=== PATIENT | female | born 2000 | race Caucasian/White ===

== ENCOUNTER 2020-08-15 10:22 | Outpatient (CLI) | payer OTHER, SELFPAY ==
--- NOTE | ~2020-08-15 | XR_ITS ---
EXAMINATION:XR_[id number]_CR DATE: 08/15/2020 10:46 INDICATION: Neck pain TECHNIQUE: AP, lateral, and odontoid views of the cervical spine are provided. COMPARISON: None FINDINGS: Alignment is normal. The odontoid is intact. No fracture is identified. Vertebral body heig hts and disk spaces are normal. Prevertebral soft tissues are normal. IMPRESSION: 1. Normal cervical spine radiographs. Reviewed, dictated and finalized at location A. 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
== END 2020-08-15 10:23 | disposition home or self-care (01) ==
LOC: CHSIMG 10:24
PROVIDERS: PCP Nurse Practitioner Family; Visit Provider Nurse Practitioner Family
DX: M54.2 Cervicalgia (principal)
CPT/HCPCS: 72040

== ENCOUNTER 2020-09-10 12:58 | Outpatient (RCR) | payer OTHER, SELFPAY ==
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
--- NOTE | 2020-10-20 09:09 | PCPTNOTE ---
Patient came to therapy for initial evaluation and no showed the next two visits. The patient was called to check in and no calls were returned. Please refer to the evaluation note for patient's discharge status. Thank you, ELZA DiazT
== END 2020-09-10 15:41 | disposition home or self-care (01) ==
LOC: CHSPT 12:58
PROVIDERS: PCP Nurse Practitioner Family; Visit Provider Nurse Practitioner Family
DX: M54.2 Cervicalgia (principal)
CPT/HCPCS: 97014; 97110; 97161; G0283

== ENCOUNTER 2020-09-16 15:32 | Outpatient (CLI) | payer OTHER, SELFPAY ==
[2020-09-16 15:46] LABS: Basophils Absolute Auto 0.03 K/mm3 (0.00-0.10); Basophils Percent Auto 0.3 % (0.0-1.0); Eosinophils Absolute Auto 0.18 K/mm3 (0.02-0.50); Eosinophils Percent Auto 1.9 % (1.0-6.0); Hematocrit 40.9 % (35.0-49.0); Hemoglobin 13.5 g/dL (12.0-15.0); Immature Granulocyte Absolute 0.03 K/mm3 (0.00-0.00); Immature Granulocyte Percent A 0.3 % (0.0-0.0); Lymphocytes Absolute Auto 3.08 K/mm3 (1.10-4.50); Lymphocytes Percent Auto 33.2 % (18.0-42.0); Mean Corpuscular Hemoglobin 27.3 pg (27.0-31.0); Mean Corpuscular Volume 82.6 fL (78.0-102.0); Mean Platelet Volume 9.7 fl (9.2-11.8); Monocytes Absolute Auto 0.62 K/mm3 (0.10-0.90); Monocytes Percent Auto 6.7 % (2.0-11.0); Neutrophils Absolute Auto 5.3 K/mm3 (1.7-7.2); Neutrophils Percent Auto 57.6 % (50.0-70.0); Platelet Count Result 244 K/mm3 (150-420); Red Blood Count 4.95 M/mm3 (4.20-5.40); Red Cell Distribution Width 13.4 % (11.6-14.4); White Blood Count 9.3 K/mm3 (4.8-10.8)
[2020-09-16 16:05] LABS: Hemoglobin A1C < 4.4 % (<5.7)
[2020-09-16 16:37] LABS: Alanine Aminotransferase 31 U/L (14-59); Albumin Level 4.3 g/dL (3.4-5.0); Alkaline Phosphatase 90 U/L (46-116); Anion Gap 9 mmol/L (8-16); Aspartate Amino Transferase 16 U/L (15-37); Bilirubin,Total 0.5 mg/dL (0.00-1.00); Blood Urea Nitrogen 16 mg/dL (7-18); Calcium 9.4 mg/dL (8.5-10.1); Carbon Dioxide 28 mmol/L (21-32); Chloride 103 mmol/L (98-108); Estimated Glomerular Filt Rate > 60; Free T3 3.19 pg/mL (2.18-3.98); Free T4 Free Thyroxine 1.04 ng/dL (0.76-1.46); Glucose 77 mg/dL (70-99); Osmolality Calculated 290 mOsm/kg (285-295); Potassium 4.3 mmol/L (3.5-5.1); Sodium 140 mmol/L (136-145); Thyroid Stimulating Hormone 1.17 uIU/mL (0.36-3.74); Total Protein 7.6 g/dL (6.4-8.2)
[2020-09-18 10:41] LABS: T4 Thyroxine 8.7 mcg/dL (5.1-11.9)
[2020-09-22 08:09] LABS: Total Triiodothyronine (T3) 135 ng/dL (76-181)
== END 2020-09-16 15:33 | disposition home or self-care (01) ==
PROVIDERS: PCP Internal Medicine; Visit Provider Nurse Practitioner Family
DX: E16.2 Hypoglycemia, unspecified (principal); R07.0 Pain in throat
CPT/HCPCS: 36415; 80053; 83036; 84436; 84439; 84443; 84480; 84481; 85025

== ENCOUNTER 2020-12-24 13:27 | Emergency (ER) | payer OTHER, SELFPAY ==
--- NOTE | ~2020-12-24 | XR_ITS ---
EXAMINATION: XR_[id number]_CR INDICATION: Right rib pain TECHNIQUE: A frontal view of the chest and 3 views of the right ribs were obtained. COMPARISON: None. FINDINGS: The lungs are free of acute opacities. There is no pleural effusion or pneumothorax. The ca rdiomediastinal silhouette is normal. No displaced rib fracture is identified. IMPRESSION: 1. No acute cardiopulmonary abnormality or evidence of displaced rib fracture. Reviewed, dictated and finalized at location A.
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
[2020-12-24 13:30] VITALS: BP 143/99; PULSE 90; RESP 14; TEMP 36.6; O2SAT 99
[2020-12-24 14:06] LABS: Pregnancy On Board Control Positive; Urine Pregnancy Test Negative
[2020-12-24] MEDS: KETOROLAC (*BKC) 60 MG/2 ML VIAL IM (14:42)
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
[2020-12-24 15:27] VITALS: BP 136/89; PULSE 88; RESP 16; TEMP 36.6; O2SAT 99
== END 2020-12-24 15:28 | disposition home or self-care (01) ==
PROVIDERS: Emergency Provider Emergency Medicine; PCP Internal Medicine
DX: S10.93XA Contusion of unspecified part of neck, initial encounter (principal); Y04.0XXA Assault by unarmed brawl or fight, initial encounter
CPT/HCPCS: 71101; 72125; 72126; 81025; 96372; 99283; 99284; J1885; Q9967

== ENCOUNTER 2021-03-03 12:19 | Outpatient (CLI) | payer OTHER, SELFPAY ==
[2021-03-03 17:26] LABS: Add Urine Microscopic? NO; Appearance Urine Clear (Clear); Bilirubin Urine Negative (Negative); Blood Urine Negative (Negative); Color Urine Yellow (Yellow); Glucose Urine UA Negative (Negative); Ketones Urine Negative (Negative); Leukocyte Esterase Ur Negative (Negative); Nitrate Urine Negative (Negative); Protein Urine Negative (Negative); Specific Grav Ur 1.025 (1.010-1.020)
[2021-03-03 17:57] LABS: SARS-CoV-2 RNA PCR Negative (Negative)
== END 2021-03-03 12:20 | disposition home or self-care (01) ==
LOC: CHSLAB 12:23
PROVIDERS: PCP Internal Medicine; Visit Provider Nurse Practitioner Family
DX: Z20.822 Contact with and (suspected) exposure to COVID-19 (principal); R30.0 Dysuria
CPT/HCPCS: 81003; 87086; C9803; U0003; U0005

== ENCOUNTER 2021-03-04 15:51 | Emergency (ER) | payer OTHER, SELFPAY ==
--- NOTE | ~2021-03-04 | XR_ITS ---
EXAMINATION: XR chest 1V portable DATE: 03/04/2021 17:02 INDICATION: Chest pain with shortness of breath. TECHNIQUE: A single frontal view of the chest was obtained. COMPARISON: Chest single view 12/24/2020 FINDINGS: The chest demonstrates clear lungs without pneumonia, pleural effusion, or pneumothorax. Th e heart size is normal. IMPRESSION: 1. No acute cardiopulmonary disease. Reviewed, dictated and finalized at location A.
--- NOTE | 2021-03-04 16:05 | ECG_ITS ---
Measurements Intervals [place] Rate: 74 P: 61 [place]: 146 QRS: 51 QRSD: 93 T: 29 QT: 371 QTc: 412 Interpretive Statements SINUS RHYTHM POSSIBLE LEFT ATRIAL ENLARGEMENT INCOMPLETE RIGHT BUNDLE BRANCH BLOCK BASELINE ARTIFACT- II, III, AVF BORDERLINE ECG Electronically Signed On 03-04-2021 19:08:03 CDT by Rodolfo Dukes D.O.
[2021-03-04 16:09] VITALS: BP 133/81; PULSE 71; RESP 20; TEMP 36.8; O2SAT 99
[2021-03-04 16:20] VITALS: PULSE 74
--- NOTE | 2021-03-04 16:35 | ED.GENADULT ---
HPI - General Adult General Chief complaint: Shortness of Breath/Dyspnea Stated complaint: pain in ribs, back pain, back pain, dizzy, SOB Source: patient Mode of arrival: ambulatory Limitations: no limitations History of Present Illness HPI narrative: Cece is a 20F with a PMH of asthma and depression and a family history of early cardiac disease that presented to the ED with chest pain and feeling ill. She was very tired 4 days ago. This progressed to pain in her right lower chest and back. She then developed a pressure in her central chest that radiates to her left arm and is associated with nausea and SOB. She denies any episodes of syncope but does admit to being lightheaded. Related Data Home Medications Medication Instructions Recorded Confirmed escitalopram oxalate 10 mg PO DAILY 03/04/21 03/04/21 Allergies Allergy/AdvReac Type Severity Reaction Status Date / Time No Known Allergies Allergy Mild Unverified 03/04/21 16:14 Review of Systems Constitutional: Constitutional: Reports no additional constitutional complaints Eyes: Eyes: Reports no additional eye complaints ENT: Reports system reviewed and no additional complaints, except as documented Cardiovascular: Cardiovascular: Reports as per HPI Respiratory: Respiratory: Reports as per HPI Gastrointestinal: Gastrointestinal: Reports as per HPI Genitourinary: Genitourinary: Reports no additional female genitourinary complaints Musculoskeletal: Musculoskeletal: Reports no additional musculoskeletal complaints Integumentary/Breasts: Skin/Breast: Reports system reviewed and no additional complaints, except as docu Neurologic: Reports system reviewed and no additional complaints, except as documented Psychiatric: Psychiatric: Reports no additional psychiatric complaints Endocrine: Endocrine: Reports no additional endocrine complaints Hematologic/Lymphatic: Hematologic/Lymphatic: Reports no additional hematologic/lymphatic complaints Allergic/Immunologic: Allergic/Immunologic: Reports no additional allergic/immunologic complaints [facility] Past Medical History Medical History Asthma Depression Surgical History Surgical History H/O dilation and curettage History of appendectomy Family History Family History Mother Hypertension Mother Rheumatoid arthritis Hypertension Heart disease Father Pneumothorax Social History Social History Smoking status: Never smoker Alcohol intake: never Exam Const: General: no acute distress and alert; No confusion Orientation/consciousness: patient oriented x3 Limitations: No altered mental status HENMT: Head: normal to inspection Mouth: Yes Normal oral and palatal mucosa present Eyes: Conjunctivae: conjunctivae normal Pupils: Equal, round and reactive pupils present EOM: EOMs intact bilaterally Neck: Neck: normal visual inspection Chest: Chest palpation & inspection: normal inspection of the chest and abnormal inspection of the chest Resp: Effort & Inspection: normal respiratory effort, not labored, not tachypneic and no use of accessory muscles Auscultation: clear to auscultation bilaterally Cardio: Rate: regular rate Rhythm: regular rhythm Heart sounds: no murmurs GI: Inspection: non-distended GI Palp: Yes Soft to palpation, No Tenderness to palpation present (GI), No Guarding due to palpation present (GI), No Rigid due to palpation and No Rebound tenderness present Auscultation: normal bowel sounds Back/Spine/Pelvis: Back: no CVA tenderness Skin: General skin exam: normal color Neuro: General: patient oriented x3, moves all extremities and CN's II-XI intact bilaterally Extrem: General: normal to inspection Psych: Mental Status: mental status grossly normal
[2021-03-04] MEDS: ASPIRIN 81 MG CHEWABLE TABLET 324 MG PO (16:40)
[2021-03-04] MEDS: NITROGLYCERIN SL 0.4 MG TABLET SUBLINGUAL (16:45)
[2021-03-04] MEDS: ONDANSETRON INJ 4 MG/2 ML VIAL IV PUSH (17:05)
[2021-03-04 17:09] LABS: Basophils Absolute Auto 0.03 K/mm3 (0.00-0.10); Basophils Percent Auto 0.4 % (0.0-1.0); Eosinophils Absolute Auto 0.22 K/mm3 (0.02-0.50); Eosinophils Percent Auto 3.1 % (1.0-6.0); Hematocrit 40.8 % (35.0-49.0); Hemoglobin 13.6 g/dL (12.0-15.0); Immature Granulocyte Absolute 0.04 K/mm3 (0.00-0.00); Immature Granulocyte Percent A 0.6 % (0.0-0.0); Lymphocytes Absolute Auto 2.31 K/mm3 (1.10-4.50); Lymphocytes Percent Auto 32.7 % (18.0-42.0); Mean Corpuscular HGB Conc 33.3 g/dL (32.0-36.0); Mean Corpuscular Hemoglobin 27.2 pg (27.0-31.0); Mean Corpuscular Volume 81.6 fL (78.0-102.0); Mean Platelet Volume 9.9 fl (9.2-11.8); Monocytes Absolute Auto 0.48 K/mm3 (0.10-0.90); Monocytes Percent Auto 6.8 % (2.0-11.0); Neutrophils Percent Auto 56.4 % (50.0-70.0); Platelet Count Result 231 K/mm3 (150-420); Red Cell Distribution Width 13.3 % (11.6-14.4); White Blood Count 7.1 K/mm3 (4.8-10.8)
[2021-03-04 17:12] LABS: Pregnancy On Board Control Positive; Urine Pregnancy Test Negative
[2021-03-04 17:21] LABS: D Dimer 0.26 mg/L (0.19-0.50); Prothrombin Time 10.5 Seconds (9.50-12.10)
[2021-03-04 17:28] LABS: Alanine Aminotransferase 31 U/L (14-59); Albumin Level 4.3 g/dL (3.4-5.0); Alkaline Phosphatase 97 U/L (46-116); Anion Gap 11 mmol/L (8-16); Aspartate Amino Transferase 14 U/L (15-37); Bilirubin,Total 0.3 mg/dL (0.00-1.00); Blood Urea Nitrogen 9 mg/dL (7-18); Calcium 9.5 mg/dL (8.5-10.1); Carbon Dioxide 25 mmol/L (21-32); Chloride 105 mmol/L (98-108); Estimated CRCL calculation 85 ml/min; Estimated Glomerular Filt Rate > 60; Glucose 116 mg/dL (70-99); Lipase 106 U/L (73-393); NT Pro B Type Natriuretic Pept 65 pg/mL (0-125); Osmolality Calculated 291 mOsm/kg (285-295); Potassium 3.8 mmol/L (3.5-5.1); Sodium 141 mmol/L (136-145); Total Protein 7.9 g/dL (6.4-8.2)
[2021-03-04 17:29] LABS: Troponin I < 4.0 ng/L (0.00-60.4)
[2021-03-04 17:53] LABS: Thyroid Stimulating Hormone 1.47 uIU/mL (0.36-3.74)
--- NOTE | 2021-03-04 17:55 | PC.NURSE ---
1645 NITRO #1 GIVEN FOR PAIN / B/P 125/77 PULSE 78 1655 NITRO #2 GIVEN FOR PAIN /10 B/P 127/78 PULSE 77 1705 PAIN 0/10
[2021-03-04 18:09] VITALS: BP 121/71; PULSE 81; RESP 20; TEMP 36.7; O2SAT 99
== END 2021-03-04 18:11 | disposition home or self-care (01) ==
PROVIDERS: Emergency Provider Family Medicine; PCP Internal Medicine
DX: R07.9 Chest pain, unspecified (principal); K21.9 Gastro-esophageal reflux disease without esophagitis; R06.02 Shortness of breath
CPT/HCPCS: 36415; 71045; 80053; 81025; 83690; 83880; 84443; 84484; 85025; 85380; 85610; 93005; 96374; 99283; 99284; A9270; J2405

== ENCOUNTER 2021-03-06 09:06 | Emergency (ER) | payer OTHER, SELFPAY ==
[2021-03-06 09:08] VITALS: BP 118/68; PULSE 89; RESP 20; TEMP 36.6; O2SAT 100
--- NOTE | 2021-03-06 09:27 | ED.HA ---
HPI - Headache General Chief Complaint: Headache Stated Complaint: ABD AND BACK PAIN, HEADACHE Time Seen by Provider: 03/06/21 09:26 Source: patient Mode of arrival: ambulatory Limitations: no limitations History of Present Illness HPI Narrative: Patient is a 20-year-old female complaining of a headache, generalized, accompanied by nausea vomiting that started last night which also resolved before she went to bed last night. She called her primary care physician today and informed about the headache she had last night and was told to go to the emergency room. Patient currently denies any headache, states that she has not had any headache or nausea vomiting this morning, the reason she is here is her primary care physician told her to come. Patient denies any symptoms at this time. Denies any dizziness, speech or visual disturbance, weakness, numbness, unsteady gait, incontinence, fever or chills, chest pain, shortness of breath, abdominal pain or back pain. Patient states that she was at another hospital 2 days ago for abdominal pain, chest pain and back pain, had a complete work-up and was discharged from the emergency room. Related Data Home Medications Medication Instructions Recorded Confirmed escitalopram oxalate 10 mg PO DAILY 03/04/21 03/04/21 Allergies Allergy/AdvReac Type Severity Reaction Status Date / Time No Known Allergies Allergy Mild Unverified 03/04/21 16:14 Review of Systems Review of Systems: All systems reviewed & are unremarkable except as noted in HPI and below Constitutional: Constitutional: Denies body ache(s), Denies chills, Denies excessive sweating, Denies fatigue, Denies fever(s), Denies headache(s), Denies lethargy, Denies malaise, Denies weakness and Denies weight loss Eyes: Eyes: Denies blurry vision, Denies change in vision and Denies loss of vision ENT: Denies dizziness, Denies ear discharge, Denies headache(s), Denies lip swelling, Denies epistaxis, Denies nasal congestion, Denies neck pain, Denies throat swelling and Denies tongue swelling Cardiovascular: Cardiovascular: Denies chest pain, Denies chest pain at rest, Denies chest pain with activity, Denies diaphoresis, Denies rapid heart rate, Denies edema, Denies irregular heart rhythm, Denies lightheadedness, Denies palpitations, Denies dyspnea and Denies dyspnea on exertion Respiratory: Respiratory: Denies chest congestion, Denies cough, Denies hemoptysis, Denies dyspnea and Denies dyspnea on exertion Gastrointestinal: Gastrointestinal: Denies abdominal pain, Denies melena, Denies hematochezia, Denies diarrhea, Denies nausea, Denies vomiting and Denies hematemesis Musculoskeletal: Musculoskeletal: Denies abnormal gait, Denies deformity, Denies joint swelling, Denies limited range of motion, Denies neck pain and Denies numbness Neurologic: Denies Abnormal speech present, Denies abnormal gait, Denies confusion, Denies dizziness, Denies headache(s), Denies focal weakness, Denies loss of vision, Denies numbness, Denies Other visual disturbances, Denies Sensory deficit (Neuro) and Denies weakness Psychiatric: Psychiatric: Denies confusion, Denies depression, Denies auditory hallucinations, Denies homicidal ideation and Denies suicidal ideation Endocrine: Endocrine: Denies cold intolerance, Denies excessive sweating, Denies fatigue, Denies heat intolerance and Denies palpitations Hematologic/Lymphatic: Hematologic/Lymphatic: Denies easy bleeding and Denies easy bruising Allergic/Immunologic: Allergic/Immunologic: Denies lip swelling, Denies throat swelling and Denies tongue swelling PMFSH Past Medical History Medical History Asthma Depression Surgical History Surgical History H/O dilation and curettage History of appendectomy Family History Family History Mother Hypertension
== END 2021-03-06 10:31 | disposition home or self-care (01) ==
PROVIDERS: Emergency Provider Emergency Medicine; PCP Internal Medicine
DX: R51.9 Headache, unspecified (principal); J45.909 Unspecified asthma, uncomplicated; F32.9 Major depressive disorder, single episode, unspecified
CPT/HCPCS: 99281

== ENCOUNTER 2021-03-06 11:19 | Outpatient (CLI) | payer OTHER, SELFPAY ==
[2021-03-06 12:31] LABS: Creatine Kinase 70 U/L (26-192)
[2021-03-06 12:37] LABS: Creatine Kinase MB < 0.50 ng/mL (0.00-5.00); Troponin I < 4.0 ng/L (0.00-60.4)
== END 2021-03-06 11:20 | disposition home or self-care (01) ==
LOC: CHSLAB 11:20
PROVIDERS: PCP Internal Medicine; Visit Provider Nurse Practitioner Family
DX: R07.9 Chest pain, unspecified (principal)
CPT/HCPCS: 36415; 82550; 82553; 84484; 85380

== ENCOUNTER 2021-03-13 09:38 | Outpatient (CLI) | payer OTHER, SELFPAY | END 2021-03-13 09:39 | disposition home or self-care (01) | LOC: CHSCARD 09:40 | PROVIDERS: PCP Internal Medicine; Visit Provider Nurse Practitioner Family | DX: R07.9 Chest pain, unspecified (principal) | CPT/HCPCS: 94060; 94726; 94729 ==

== ENCOUNTER 2021-03-18 08:51 | Outpatient (CLI) | payer OTHER, SELFPAY ==
--- NOTE | ~2021-03-18 | MR_ITS ---
EXAMINATION: MR cervical spine wo con EXAM DATE: 03/18/2021 10:24 INDICATION: Chronic back pain radiating into left arm. Migraine headaches. TECHNIQUE: Multi-sequential, multiplanar MR images of the cervical spine were obtained without contra st. Axial T2, axial T2 MERGE sequence. Sagittal T1, T2, T2 fat saturation images also obtained. Cor relation is made to CT cervical spine 12/24/2020. FINDINGS: The vertebral bodies are aligned in the AP dimension. Vertebral body and disc heights are well-maintained. There are no suspicious marrow signal abnormalities. Paraspinal soft tissue is unrem arkable. The spinal cord signal intensity and intrinsic morphology is normal. Cervicomedullary juncti on is normal in appearance. Level by level evaluation: C2-C3: Disc does not extend beyond the endplate margin. Uncovertebral joint arthropathy: None. Facet joint arthropathy: None. Neural foraminal stenosis: No stenosis. Central canal stenosis: No stenosis. C3-C4: Disc does not extend beyond the endplate margin. Uncovertebral joint arthropathy: None. Facet joint arthropathy: None. Neural foraminal stenosis: No stenosis. Central canal stenosis: No stenosis. C4-C5: Disc does not extend beyond the endplate margin. Uncovertebral joint arthropathy: None. Facet joint arthropathy: None. Neural foraminal stenosis: No stenosis. Central canal stenosis: No stenosis. C5-C6: Disc does not extend beyond the endplate margin. Uncovertebral joint arthropathy: None. Facet joint arthropathy: None. Neural foraminal stenosis: No stenosis. Central canal stenosis: No stenosis. C6-C7: Disc does not extend beyond the endplate margin. Uncovertebral joint arthropathy: None. Facet joint arthropathy: None. Neural foraminal stenosis: No stenosis. Central canal stenosis: No stenosis. C7-T1: Disc does not extend beyond the endplate margin. Uncovertebral joint arthropathy: None. Facet joint arthropathy: Mild left. Neural foraminal stenosis: No stenosis. Central canal stenosis: No stenosis. IMPRESSION: Unremarkable MR cervical spine exam. Reviewed, dictated and finalized at location B.
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
== END 2021-03-18 08:52 | disposition home or self-care (01) ==
LOC: CHSIMG 08:52
PROVIDERS: PCP Internal Medicine; Visit Provider Internal Medicine
DX: G43.919 Migraine, unspecified, intractable, without status migrainosus (principal); M54.2 Cervicalgia; M54.10 Radiculopathy, site unspecified
CPT/HCPCS: 70551; 72141

== ENCOUNTER 2022-02-18 17:31 | Outpatient (CLI) | payer OTHER, MEDICAID, SELFPAY ==
[2022-02-18 18:21] LABS: Hematocrit 41.1 % (35.0-49.0); Hemoglobin 13.3 g/dL (12.0-15.0); Mean Corpuscular HGB Conc 32.4 g/dL (32.0-36.0); Mean Corpuscular Volume 83.5 fL (78.0-102.0); Mean Platelet Volume 10.4 fl (9.2-11.8); Platelet Count Result 246 K/mm3 (150-420); Red Blood Count 4.92 M/mm3 (4.20-5.40); Red Cell Distribution Width 12.8 % (11.6-14.4)
[2022-02-18 18:33] LABS: Appearance Urine Slightly Cloudy (Clear); Bilirubin Urine 1+ (Negative); Blood Urine 3+ (Negative); Glucose Urine UA Trace (Negative); Ketones Urine Trace (Negative); Leukocyte Esterase Ur Negative LEU/UL (Negative); Nitrate Urine Negative (Negative); Protein Urine 3+ (Negative); Specific Grav Ur >= 1.030 (1.010-1.020)
[2022-02-18 18:38] LABS: SPREG INTERNAL CONTROL Positive; Serum Qual hCG Negative
[2022-02-18 18:44] LABS: Add Urine Microscopic? YES; Bacteria Urine 1+ /hpf; Color Urine Dark Red (Yellow); RBC Urine >75 /hpf (0-2); Squamous Epithelial Cell Urine Few /hpf (Few); WBC Urine 0-3 /hpf (0-3)
[2022-02-18 18:45] LABS: Mucus Urine Rare /lpf
[2022-02-18 18:51] LABS: Alanine Aminotransferase 33 U/L (14-59); Albumin Level 4.5 g/dL (3.4-5.0); Alkaline Phosphatase 91 U/L (46-116); Amylase 48 U/L (25-115); Anion Gap 12 mmol/L (8-16); Aspartate Amino Transferase 15 U/L (15-37); Bilirubin,Total 0.3 mg/dL (0.00-1.00); Blood Urea Nitrogen 14 mg/dL (7-18); CRP 0.5 mg/dL (0.0-0.9); Calcium 9.2 mg/dL (8.5-10.1); Carbon Dioxide 24 mmol/L (21-32); Chloride 104 mmol/L (98-108); Estimated Glomerular Filt Rate > 60; Free T4 Free Thyroxine 0.94 ng/dL (0.76-1.46); Glucose 115 mg/dL (70-99); Lipase 124 U/L (73-393); Osmolality Calculated 291 mOsm/kg (285-295); Potassium 3.3 mmol/L (3.5-5.1); Sodium 140 mmol/L (136-145); Thyroid Stimulating Hormone 0.67 uIU/mL (0.36-3.74); Total Protein 7.9 g/dL (6.4-8.2)
== END 2022-02-18 17:32 | disposition home or self-care (01) ==
PROVIDERS: PCP Internal Medicine; Visit Provider Nurse Practitioner Family
DX: R51.9 Headache, unspecified (principal); N93.8 Other specified abnormal uterine and vaginal bleeding; R10.9 Unspecified abdominal pain; R63.4 Abnormal weight loss
CPT/HCPCS: 36415; 80053; 81001; 82150; 83690; 84439; 84443; 84703; 85027; 86140

== ENCOUNTER 2022-02-22 08:25 | Outpatient (CLI) | payer OTHER, MEDICAID, SELFPAY ==
--- NOTE | ~2022-02-22 | US_ITS ---
EXAMINATION: US pelvic complete w TV DATE: 02/22/2022 09:11 INDICATION: Dysfunctional uterine bleeding TECHNIQUE: Multiple transabdominal and endovaginal sonographic images of the pelvis were obtained. COMPARISON: 09/24/2016 FINDINGS: The uterus measures 7.3 x 3.4 x 4.5 cm. The endometrial complex measures 4 mm. The right ov luigi measures 2.8 x 3.2 x 2.1 cm. The left ovary measures 2.7 x 1.8 x 2.3 cm. There is normal vascular flow in the ovaries. There is no free fluid in the pelvis. IMPRESSION: 1. No sonographic correlate for the patient's symptoms. Reviewed, dictated and finalized at location B.
== END 2022-02-22 08:26 | disposition home or self-care (01) ==
LOC: CHSIMG 08:27
PROVIDERS: PCP Internal Medicine; Visit Provider Nurse Practitioner Family
DX: R51.9 Headache, unspecified (principal); N93.8 Other specified abnormal uterine and vaginal bleeding; R10.9 Unspecified abdominal pain; R63.4 Abnormal weight loss
CPT/HCPCS: 76830; 76856

== ENCOUNTER 2022-02-24 16:54 | Outpatient (CLI) | payer OTHER, MEDICAID, SELFPAY ==
--- NOTE | ~2022-02-24 | CT_ITS ---
EXAMINATION: CT abdomen pelvis wo con DATE: 02/24/2022 17:24 INDICATION: Hematuria w/ RT sided flank pain and n/v x 1 mo TECHNIQUE: Computed tomography (CT) of the abdomen and pelvis was performed without intravenous contr ast. Automated exposure control and iterative reconstruction technique were employed. The dose-length product was 214.78 mGy-cm. COMPARISON: Ultrasound pelvis 02/22/2022. X-ray abdomen 10/19/2018. FINDINGS: Lower thorax: Unremarkable Liver: Normal. Biliary/Gallbladder: No bile duct dilation. Pancreas: No mass or duct dilation. Spleen: Normal. Adrenals:No mass. Kidneys: No mass, stone, or hydronephrosis. GI tract: No small or large bowel dilation. Surgically absent appendix. Mesentery/Peritoneum: No ascites, mass, or free air. Retroperitoneum: No mass. Pelvis: Bladder is poorly distended. Distal ureters are difficult to trace in the entirety. 3 mm calc ification in the right deep pelvis may represent a phlebolith or, less likely a distal ureteral stone . Soft Tissues: Soft tissues and body wall unremarkable. Bones: No acute osseous finding. IMPRESSION: No acute abdominopelvic process detected. Distal ureters are difficult to trace, but there is no neph rolithiasis, perinephric stranding, or hydronephrosis. 3 mm right pelvic calcification is likely repr esents a phlebolith but a distal ureteral stone remains possible. CT urography would be necessary for confirmation. Reviewed, dictated and finalized at location K. IMPRESSION: No acute abdominopelvic process detected. Distal ureters are difficult to trace , but there is no nephrolithiasis, perinephric stranding, or hydronephrosis. 3 mm right pelvic calcification is likely represents a phlebolith but a distal ur eteral stone remains possible. CT urography would be necessary for confirmation .
[2022-02-24 17:33] LABS: Basophils Absolute Auto 0.02 K/mm3 (0.00-0.10); Basophils Percent Auto 0.2 % (0.0-1.0); Eosinophils Absolute Auto 0.16 K/mm3 (0.02-0.50); Hematocrit 38.7 % (35.0-49.0); Hemoglobin 12.6 g/dL (12.0-15.0); Immature Granulocyte Absolute 0.02 K/mm3 (0.00-0.00); Immature Granulocyte Percent A 0.2 % (0.0-0.0); Lymphocytes Percent Auto 28.6 % (18.0-42.0); Mean Corpuscular HGB Conc 32.6 g/dL (32.0-36.0); Mean Corpuscular Hemoglobin 27.2 pg (27.0-31.0); Mean Corpuscular Volume 83.6 fL (78.0-102.0); Mean Platelet Volume 10.3 fl (9.2-11.8); Monocytes Absolute Auto 0.52 K/mm3 (0.10-0.90); Monocytes Percent Auto 6.5 % (2.0-11.0); Neutrophils Percent Auto 62.5 % (50.0-70.0); Platelet Count Result 235 K/mm3 (150-420); Red Blood Count 4.63 M/mm3 (4.20-5.40); Red Cell Distribution Width 12.6 % (11.6-14.4)
[2022-02-24 17:38] LABS: Anion Gap 6 mmol/L (8-16); Blood Urea Nitrogen 7 mg/dL (7-18); CRP 1.1 mg/dL (0.0-0.9); Calcium 9.2 mg/dL (8.5-10.1); Carbon Dioxide 24 mmol/L (21-32); Chloride 104 mmol/L (98-108); Estimated Glomerular Filt Rate > 60; Glucose 88 mg/dL (70-99); Osmolality Calculated 275 mOsm/kg (285-295); Potassium 3.6 mmol/L (3.5-5.1); Sodium 134 mmol/L (136-145)
[2022-02-24 17:41] LABS: Add Urine Microscopic? YES; Appearance Urine Cloudy (Clear); Bilirubin Urine Negative (Negative); Blood Urine 3+ (Negative); Color Urine Yellow (Yellow); Glucose Urine UA Negative (Negative); Ketones Urine Negative (Negative); Leukocyte Esterase Ur Negative (Negative); Nitrate Urine Negative (Negative); Protein Urine Trace (Negative)
[2022-02-24 17:43] LABS: Bacteria Urine 1+ /hpf; RBC Urine >75 /hpf (0-2); Squamous Epithelial Cell Urine Few /hpf (Few); WBC Urine None seen /hpf (0-3)
[2022-02-24 18:46] LABS: Erythrocyte Sedimentation Rate 16 mm/hr (0-15)
[2022-02-26 20:55] LABS: Albumin 4.7 g/dL (3.8-4.8); Alpha 1 Globulin 0.4 g/dL (0.2-0.3); Alpha 2 Globulin 0.7 g/dL (0.5-0.9); Beta 1 Globulin 0.4 g/dL (0.4-0.6); Protein, Total 7.5 g/dL (6.1-8.1)
== END 2022-02-24 16:55 | disposition home or self-care (01) ==
LOC: CHSLAB 16:57
PROVIDERS: PCP Internal Medicine; Visit Provider Internal Medicine
DX: R31.9 Hematuria, unspecified (principal); N18.2 Chronic kidney disease, stage 2 (mild); R50.9 Fever, unspecified
CPT/HCPCS: 36415; 74176; 80048; 81001; 84155; 84165; 85025; 85652; 86038; 86140; 87086

== ENCOUNTER 2022-05-07 16:38 | Emergency (ER) | payer BC, SELFPAY ==
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
[2022-05-07 16:58] VITALS: BP 120/94; PULSE 72; RESP 18; TEMP 36.5; O2SAT 97
[2022-05-07 17:42] LABS: Bilirubin Urine Negative (Negative); Blood Urine 3+ (Negative); Glucose Urine UA Negative (Negative); Ketones Urine Negative (Negative); Leukocyte Esterase Ur Trace LEU/UL (Negative); Nitrate Urine Negative (Negative); Protein Urine Negative (Negative); Urobilinogen Urine 0.2 mg/dL (0.2-1.0)
[2022-05-07 17:45] LABS: Basophils Absolute Auto 0.03 K/mm3 (0.00-0.10); Basophils Percent Auto 0.4 % (0.0-1.0); Eosinophils Absolute Auto 0.14 K/mm3 (0.02-0.50); Eosinophils Percent Auto 1.7 % (1.0-6.0); Hematocrit 38.9 % (35.0-49.0); Immature Granulocyte Absolute 0.03 K/mm3 (0.00-0.00); Immature Granulocyte Percent A 0.4 % (0.0-0.0); Lymphocytes Absolute Auto 2.57 K/mm3 (1.10-4.50); Lymphocytes Percent Auto 31.8 % (18.0-42.0); Mean Corpuscular HGB Conc 33.4 g/dL (32.0-36.0); Mean Corpuscular Hemoglobin 27.9 pg (27.0-31.0); Mean Corpuscular Volume 83.5 fL (78.0-102.0); Mean Platelet Volume 9.9 fl (9.2-11.8); Monocytes Absolute Auto 0.46 K/mm3 (0.10-0.90); Monocytes Percent Auto 5.7 % (2.0-11.0); Neutrophils Absolute Auto 4.8 K/mm3 (1.7-7.2); Platelet Count Result 249 K/mm3 (150-420); Red Blood Count 4.66 M/mm3 (4.20-5.40); Red Cell Distribution Width 13.3 % (11.6-14.4); White Blood Count 8.1 K/mm3 (4.8-10.8)
[2022-05-07 17:52] LABS: Add Urine Microscopic? YES; Appearance Urine Cloudy (Clear); Bacteria Urine Trace /hpf; Color Urine Light Red (Yellow); RBC Urine >75 /hpf (0-2); Squamous Epithelial Cell Urine Rare /hpf (Few); WBC Urine 0-3 /hpf (0-3)
[2022-05-07 17:59] LABS: Partial Thromboplastin Time 31.3 SEC (23.90-30.70); Prothrombin Time 10.9 Seconds (9.50-12.10)
[2022-05-07 18:06] LABS: Anion Gap 8 mmol/L (8-16); Blood Urea Nitrogen 16 mg/dL (7-18); Calcium 9.5 mg/dL (8.5-10.1); Carbon Dioxide 27 mmol/L (21-32); Chloride 106 mmol/L (98-108); Estimated Glomerular Filt Rate > 60; Glucose 102 mg/dL (70-99); Osmolality Calculated 293 mOsm/kg (285-295); Potassium 3.8 mmol/L (3.5-5.1); Sodium 141 mmol/L (136-145)
[2022-05-07 18:07] LABS: Beta HCG Quantitative < 1.00 mIU/mL (0-6)
== END 2022-05-07 18:44 | disposition left against medical advice (07) ==
PROVIDERS: Emergency Provider Emergency Medicine; PCP Internal Medicine
DX: N92.1 Excessive and frequent menstruation with irregular cycle (principal); N93.9 Abnormal uterine and vaginal bleeding, unspecified
CPT/HCPCS: 36415; 80048; 81001; 84702; 85025; 85610; 85730; 99283

== ENCOUNTER 2022-06-30 16:23 | Outpatient (CLI) | payer BC, SELFPAY ==
[2022-06-30 17:07] LABS: Strep Group A RT-PCR NOT DETECTED (Negative)
[2022-06-30 17:10] LABS: Influenza A QL RT-PCR Negative (Negative); Influenza B QL RT-PCR Negative (Negative); SARS-CoV-2 RNA PCR Negative (Negative)
== END 2022-06-30 16:24 | disposition home or self-care (01) ==
PROVIDERS: PCP Family Medicine; Visit Provider Family Medicine
DX: J06.9 Acute upper respiratory infection, unspecified (principal); Z20.822 Contact with and (suspected) exposure to COVID-19
CPT/HCPCS: 87636; 87651

== ENCOUNTER 2022-10-26 17:53 | Outpatient (CLI) | payer BC, SELFPAY ==
[2022-10-26 18:12] LABS: Basophils Absolute Auto 0.03 K/mm3 (0.00-0.10); Basophils Percent Auto 0.4 % (0.0-1.0); Eosinophils Absolute Auto 0.15 K/mm3 (0.02-0.50); Eosinophils Percent Auto 1.9 % (1.0-6.0); Hematocrit 40.3 % (35.0-49.0); Immature Granulocyte Absolute 0.02 K/mm3 (0.00-0.00); Immature Granulocyte Percent A 0.3 % (0.0-0.0); Lymphocytes Absolute Auto 2.71 K/mm3 (1.10-4.50); Lymphocytes Percent Auto 34.6 % (18.0-42.0); Mean Corpuscular HGB Conc 32.3 g/dL (32.0-36.0); Mean Corpuscular Hemoglobin 26.6 pg (27.0-31.0); Mean Corpuscular Volume 82.6 fL (78.0-102.0); Mean Platelet Volume 9.5 fl (9.2-11.8); Monocytes Absolute Auto 0.62 K/mm3 (0.10-0.90); Monocytes Percent Auto 7.9 % (2.0-11.0); Neutrophils Absolute Auto 4.3 K/mm3 (1.7-7.2); Neutrophils Percent Auto 54.9 % (50.0-70.0); Platelet Count Result 269 K/mm3 (150-420); Red Blood Count 4.88 M/mm3 (4.20-5.40); Red Cell Distribution Width 13.3 % (11.6-14.4); White Blood Count 7.8 K/mm3 (4.8-10.8)
[2022-10-26 18:46] LABS: Alanine Aminotransferase 36 U/L (14-59); Albumin Level 4.3 g/dL (3.4-5.0); Alkaline Phosphatase 86 U/L (46-116); Anion Gap 7 mmol/L (8-16); Aspartate Amino Transferase 21 U/L (15-37); Bilirubin,Total 0.5 mg/dL (0.00-1.00); Blood Urea Nitrogen 11 mg/dL (7-18); Calcium 9.4 mg/dL (8.5-10.1); Carbon Dioxide 28 mmol/L (21-32); Chloride 107 mmol/L (98-108); Estimated Glomerular Filt Rate > 60; Glucose 76 mg/dL (70-99); Osmolality Calculated 292 mOsm/kg (285-295); Sodium 142 mmol/L (136-145); Total Protein 7.5 g/dL (6.4-8.2)
[2022-10-26 18:57] LABS: HIV 1 P24 AG Negative (Negative); HIV 1/2 AB Negative (Negative)
[2022-10-30 16:31] LABS: RPR Screen Non-Reactive (Non-Reactive)
[2022-11-02 02:52] LABS: Hepatitis A Antibody IgM Nonreactive; Hepatitis B Core Antibody Nonreactive (Nonreactive); Hepatitis B Surface Antigen Nonreactive (Nonreactive); Hepatitis C Signal to Cutoff 0.01 ratio (<1.00); Hepatitis C Virus Antibody Nonreactive (Nonreactive)
== END 2022-10-26 17:54 | disposition home or self-care (01) ==
LOC: CHSLAB 17:55
PROVIDERS: PCP Internal Medicine; Visit Provider Emergency Medicine
DX: Z72.51 High risk heterosexual behavior (principal); Z20.2 Contact with and (suspected) exposure to infections with a predominantly sexual mode of transmission
CPT/HCPCS: 36415; 80053; 80074; 85025; 86592; 86703

== ENCOUNTER 2023-01-14 10:29 | Emergency (ER) | payer BC, SELFPAY ==
--- NOTE | 2023-01-14 10:33 | ED.URI ---
HPI - URI/Sore Throat General Chief Complaint: Upper Respiratory Infection Stated Complaint: SOB/SORE THROAT/HEADACHE/FEVER/TIRED/COUGH Time Seen by Provider: 01/14/23 10:33 Source: patient Mode of arrival: ambulatory Limitations: no limitations History of Present Illness HPI Narrative: Patient is a 22-year-old female who presents with 3 days of fever, sore throat, ear pain, dry cough, fatigue, headache, body aches, nausea, vomiting. Patient states upper respiratory viruses along with COVID are going around her job along with her children currently having strep. Reports children are on day 5 of antibiotics. Patient has taken DayQuil and Tylenol with little to no relief. Denies any nausea vomiting today but did vomit last night. States she has history of bronchitis and pneumonia. Denies any diarrhea. Patient tested herself at home yesterday and was negative for COVID. Related Data Allergies Allergy/AdvReac Type Severity Reaction Status Date / Time Sulfa (Sulfonamide Allergy Unknown Verified 01/14/23 10:44 Antibiotics) Review of Systems Review of Systems: All systems reviewed & are unremarkable except as noted in HPI and below Constitutional: Constitutional: Reports body ache(s), Reports chills, Reports fatigue, Reports fever(s), Reports headache(s), Reports malaise and Denies weakness Eyes: Eyes: Denies blurry vision, Denies itchy eyes and Denies loss of vision ENT: Reports otalgia, Reports headache(s), Reports nasal congestion, Denies sinus pain and Reports sore throat Cardiovascular: Cardiovascular: Denies chest pain, Denies irregular heart rhythm and Denies dyspnea Respiratory: Respiratory: Reports cough and Denies dyspnea Gastrointestinal: Gastrointestinal: Denies abdominal pain, Denies diarrhea, Reports nausea and Reports vomiting Musculoskeletal: Musculoskeletal: Denies back pain, Denies myalgias and Denies arthralgias Integumentary/Breasts: Skin/Breast: Denies pruritus and Denies rash Neurologic: Denies headache(s), Denies loss of vision and Denies weakness Psychiatric: Psychiatric: Reports no additional psychiatric complaints Endocrine: Endocrine: Denies fatigue Allergic/Immunologic: Allergic/Immunologic: Denies itchy eyes PMFSH Past Medical History Medical History Asthma Depression Surgical History Surgical History H/O dilation and curettage History of appendectomy Family History Family History Mother Hypertension Mother Rheumatoid arthritis Hypertension Heart disease Father Pneumothorax Social History Social History Smoking status: Never smoker Alcohol intake: never Comments At time of signature, agree with nursing past medical, surgical, social and family history. There is no relevant family history pertinent to the presenting complaint. Exam Const: General: cooperative, healthy appearing, comfortable, no acute distress and well nourished Nutritional Appearance: well nourished Orientation/consciousness: patient oriented x3 Limitations: no limitations HENMT: Head: normal to inspection, normocephalic and atraumatic Ears: hearing grossly normal bilaterally, external ears normal, TM's normal bilaterally, EAC's normal and no periauricular adenopathy Face/Nose/Sinus: Normal external nose present, Normal nasal mucous membranes and turbinates present, normal facial exam, sinuses nontender and face symmetric Face and sinus: normal facial exam, sinuses nontender and face symmetric Mouth: Yes Normal oral and palatal mucosa present, Yes lip normal, Yes tongue normal, Yes Normal salivary glands and ducts present, Yes oropharynx normal and Yes moist mucous membranes Teeth and gingiva: dentition normal Throat: posterior oropharynx normal, tonsils normal, uvula midline and heeler
[2023-01-14 10:43] VITALS: BP 121/87; PULSE 81; RESP 16; TEMP 36.6; O2SAT 100
[2023-01-14 10:45] VITALS: BP 121/87; PULSE 81; RESP 16; TEMP 36.6; O2SAT 100
== END 2023-01-14 11:00 | disposition home or self-care (01) ==
PROVIDERS: Emergency Provider Nurse Practitioner Family; PCP Internal Medicine
DX: J06.9 Acute upper respiratory infection, unspecified (principal); J45.909 Unspecified asthma, uncomplicated
CPT/HCPCS: 87081; 87804; 87880; 99213; G0463

== ENCOUNTER 2023-03-22 11:56 | Emergency (ER) | payer OTHER, BC, SELFPAY ==
--- NOTE | ~2023-03-22 | XR_ITS ---
Right wrist Technique: PA, oblique, lateral, and ulnar deviation views were obtained. Clinical History: Pain Findings: No acute fracture or dislocation is seen. Osseous alignment is anatomic. Joint spaces are p reserved. Soft tissues are unremarkable. Impression: Unremarkable right wrist radiographs. Reviewed, dictated and finalized at location . Impression: Unremarkable right wrist radiographs.
--- NOTE | ~2023-03-22 | XR_ITS ---
Right Hand Technique: PA, oblique, and lateral views were obtained. Clinical History: Pain Findings: No acute fracture or dislocation is seen. Osseous alignment is anatomic. Joint spaces are p reserved. Soft tissues are unremarkable. Impression: Unremarkable right hand. Reviewed, dictated and finalized at location M. Impression: Unremarkable right hand.
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
[2023-03-22 12:09] VITALS: BP 113/80; PULSE 66; RESP 16; TEMP 36.6; O2SAT 100
[2023-03-22 12:12] VITALS: BP 113/80; PULSE 66; RESP 16; TEMP 36.6; O2SAT 100
== END 2023-03-22 12:34 | disposition home or self-care (01) ==
PROVIDERS: Emergency Provider Nurse Practitioner Family; PCP Internal Medicine
DX: S63.91XA Sprain of unspecified part of right wrist and hand, initial encounter (principal); S63.501A Unspecified sprain of right wrist, initial encounter; X58.XXXA Exposure to other specified factors, initial encounter; Y99.0 Civilian activity done for income or pay; J45.909 Unspecified asthma, uncomplicated
CPT/HCPCS: 73110; 73130; 99213; G0463

== ENCOUNTER 2023-04-19 13:00 | Emergency (ER) | payer BC, SELFPAY ==
--- NOTE | 2023-04-19 13:07 | ED.URI ---
HPI - URI/Sore Throat General Chief Complaint: Upper Respiratory Infection Stated Complaint: Bilateral Ear Irritation,Body Aches,Sore Throat Time Seen by Provider: 04/19/23 13:07 Source: patient, RN notes reviewed and old records reviewed Mode of arrival: ambulatory Limitations: no limitations History of Present Illness HPI Narrative: 22-year-old female presents to the [facility] with body aches, sore throat, bilateral ear pain that started Tuesday, 2 days ago. Patient reports where she works that she has been exposed to COVID Patient reports that her child is positive for strep and influenza A. Onset (ago): day(s) (2) Treatments prior to arrival: ibuprofen and cold medicine (One dose) Related Data Home Medications Medication Instructions Recorded Confirmed No Home Medications 04/19/23 04/19/23 Allergies Allergy/AdvReac Type Severity Reaction Status Date / Time Sulfa (Sulfonamide Allergy Unknown Verified 04/19/23 13:09 Antibiotics) Review of Systems Review of Systems: All systems reviewed & are unremarkable except as noted in HPI and below Constitutional: Constitutional: Reports as per HPI Eyes: Eyes: Reports no additional eye complaints ENT: Reports as per HPI Cardiovascular: Cardiovascular: Reports no additional cardiovascular complaints, Denies chest pain and Denies dyspnea Respiratory: Respiratory: Reports no additional respiratory complaints, Denies chest congestion, Denies cough and Denies dyspnea Gastrointestinal: Gastrointestinal: Reports no additional gastrointestinal complaints, Denies abdominal pain, Denies nausea and Denies vomiting Musculoskeletal: Musculoskeletal: Reports no additional musculoskeletal complaints Integumentary/Breasts: Skin/Breast: Reports system reviewed and no additional complaints, except as docu Neurologic: Reports system reviewed and no additional complaints, except as documented Psychiatric: Psychiatric: Reports no additional psychiatric complaints Allergic/Immunologic: Allergic/Immunologic: Reports no additional allergic/immunologic complaints [facility] Past Medical History Medical History Asthma Depression Surgical History Surgical History H/O dilation and curettage History of appendectomy Family History Family History Mother Hypertension Mother Rheumatoid arthritis Hypertension Heart disease Father Pneumothorax Social History Social History Smoking status: Never smoker Alcohol intake: never Comments At the time of my signature, I reviewed and agree with the nursing past medical, surgical, social, and family history. There is no relevant family history pertinent to the patient complaint. Exam Const: General: cooperative, healthy appearing, comfortable, no acute distress, well developed, alert and well nourished Nutritional Appearance: well nourished Orientation/consciousness: patient oriented x3 Limitations: no limitations HENMT: Head: normal to inspection Ears: hearing grossly normal bilaterally, external ears normal, TM's normal bilaterally, EAC's normal and mastoids normal Face/Nose/Sinus: Normal external nose present, Normal nares present, Normal nasal mucous membranes and turbinates present, normal facial exam and face symmetric Face and sinus: normal facial exam and face symmetric Mouth: Yes Normal oral and palatal mucosa present, Yes lip normal and Yes moist mucous membranes Throat: posterior oropharynx normal, uvula midline and postnasal drainage Eyes: General: appearance normal, both eyes and all related structures Alignment and Position: alignment normal Periorbital: periorbital findings normal Pupils: Equal, round and reactive pupils present EOM: EOMs intact bilaterally Neck: Neck: normal visual inspection
[2023-04-19 13:08] VITALS: BP 122/71; PULSE 78; RESP 16; TEMP 36.4; O2SAT 100
== END 2023-04-19 13:38 | disposition home or self-care (01) ==
PROVIDERS: Emergency Provider Nurse Practitioner; PCP Internal Medicine
DX: J06.9 Acute upper respiratory infection, unspecified (principal); Z20.822 Contact with and (suspected) exposure to COVID-19
CPT/HCPCS: 87081; 87426; 87804; 87880; 99213; C9803; G0463

== ENCOUNTER 2023-09-13 13:45 | Outpatient (CLI) | payer BC, SELFPAY ==
[2023-09-13 14:10] LABS: Basophils Absolute Auto 0.04 K/mm3 (0.00-0.10); Basophils Percent Auto 0.4 % (0.0-1.0); Eosinophils Absolute Auto 0.33 K/mm3 (0.02-0.50); Eosinophils Percent Auto 3.7 % (1.0-6.0); Hematocrit 38.9 % (35.0-49.0); Hemoglobin 12.9 g/dL (12.0-15.0); Immature Granulocyte Absolute 0.03 K/mm3 (0.00-0.00); Immature Granulocyte Percent A 0.3 % (0.0-0.0); Lymphocytes Absolute Auto 2.55 K/mm3 (1.10-4.50); Lymphocytes Percent Auto 28.7 % (18.0-42.0); Mean Corpuscular HGB Conc 33.2 g/dL (32-36); Mean Corpuscular Hemoglobin 27.7 pg (27.0-31.0); Mean Corpuscular Volume 83.5 fL (78.0-102.0); Monocytes Absolute Auto 0.56 K/mm3 (0.10-0.90); Monocytes Percent Auto 6.3 % (2.0-11.0); Neutrophils Absolute Auto 5.39 K/mm3 (1.70-7.20); Neutrophils Percent Auto 60.6 % (50.0-70.0); Platelet Count Result 241 K/mm3 (150-420); Red Blood Count 4.66 M/mm3 (4.20-5.40); Red Cell Distribution Width 13.1 % (11.6-14.4); White Blood Count 8.9 K/mm3 (4.8-10.8)
[2023-09-13 15:11] LABS: Alanine Aminotransferase 26 U/L (14-59); Alkaline Phosphatase 83 U/L (46-116); Anion Gap 11 mmol/L (8-16); Aspartate Amino Transferase 11 U/L (15-37); Bilirubin,Total 0.3 mg/dL (0.00-1.00); Blood Urea Nitrogen 13 mg/dL (7-18); Carbon Dioxide 28 mmol/L (21-32); Chloride 102 mmol/L (98-108); Estimated Glomerular Filt Rate > 60; Glucose 109 mg/dL (70-99); Osmolality Calculated 293 mOsm/kg (285-295); Potassium 3.8 mmol/L (3.5-5.1); Sodium 141 mmol/L (136-145); Total Protein 7.3 g/dL (6.4-8.2); Vitamin B12 694 pg/mL (193-986)
[2023-09-13 16:07] LABS: Thyroid Stimulating Hormone Reflex 1.23 u/IU/mL (0.36-3.74)
[2023-09-19 18:56] LABS: Vitamin D 25 Hydroxy 35 ng/mL (30-100)
== END 2023-09-13 13:46 | disposition home or self-care (01) ==
LOC: CHSLAB 13:48
PROVIDERS: PCP Family Medicine; Visit Provider Family Medicine
DX: E53.8 Deficiency of other specified B group vitamins (principal); E03.9 Hypothyroidism, unspecified; E16.2 Hypoglycemia, unspecified; Z79.899 Other long term (current) drug therapy
CPT/HCPCS: 36415; 80053; 82306; 82607; 82746; 83525; 84443; 85025

== ENCOUNTER 2023-09-14 14:13 | Outpatient (CLI) | payer BC, SELFPAY ==
--- NOTE | ~2023-09-14 | US_ITS ---
EXAMINATION: US thyroid DATE: 09/14/2023 14:34 INDICATION: Nontoxic single thyroid nodule. TECHNIQUE: Multiple ultrasound images of the thyroid were obtained. COMPARISON: None. FINDINGS: The right thyroid lobe measures 4.9 x 1.2 x 1.0 cm. The left thyroid lobe measures 4.0 x 1.3 x 1.0 c m. In the right thyroid lobe, there is a 13 mm solid, isoechoic, wider than tall nodule with ill-def ined margin without echogenic foci (TI-RADS TR3). IMPRESSION: 1. Small thyroid nodule, likely not clinically significant. No follow-up is needed. Reviewed, dictated and finalized at location A. IMPRESSION: 1. Small thyroid nodule, likely not clinically significant. No follow-up is nee ded.
== END 2023-09-14 14:14 | disposition home or self-care (01) ==
LOC: CHSIMG 14:13
PROVIDERS: PCP Family Medicine; Visit Provider Family Medicine
DX: E04.1 Nontoxic single thyroid nodule (principal)
CPT/HCPCS: 76536

== ENCOUNTER 2023-11-24 16:16 | Outpatient (CLI) | payer BC, SELFPAY ==
[2023-11-24 16:47] LABS: Basophils Absolute Auto 0.05 K/mm3 (0.00-0.10); Basophils Percent Auto 0.6 % (0.0-1.0); Eosinophils Absolute Auto 0.22 K/mm3 (0.02-0.50); Eosinophils Percent Auto 2.6 % (1.0-6.0); Hematocrit 40.4 % (35.0-49.0); Immature Granulocyte Absolute 0.03 K/mm3 (0.00-0.00); Immature Granulocyte Percent A 0.4 % (0.0-0.0); Lymphocytes Absolute Auto 2.78 K/mm3 (1.10-4.50); Lymphocytes Percent Auto 32.6 % (18.0-42.0); Mean Corpuscular HGB Conc 32.2 g/dL (32-36); Mean Corpuscular Hemoglobin 27.2 pg (27.0-31.0); Mean Corpuscular Volume 84.5 fL (78.0-102.0); Mean Platelet Volume 10.2 fl (9.2-11.8); Monocytes Absolute Auto 0.63 K/mm3 (0.10-0.90); Monocytes Percent Auto 7.4 % (2.0-11.0); Neutrophils Absolute Auto 4.83 K/mm3 (1.70-7.20); Neutrophils Percent Auto 56.4 % (50.0-70.0); Platelet Count Result 252 K/mm3 (150-420); Red Blood Count 4.78 M/mm3 (4.20-5.40); White Blood Count 8.5 K/mm3 (4.8-10.8)
[2023-11-24 16:59] LABS: Alanine Aminotransferase 24 U/L (14-59); Alkaline Phosphatase 81 U/L (46-116); Anion Gap 11 mmol/L (4-12); Aspartate Amino Transferase 16 U/L (15-37); Bilirubin,Total 0.3 mg/dL (0.00-1.00); Blood Urea Nitrogen 13 mg/dL (7-18); Calcium 9.2 mg/dL (8.5-10.1); Carbon Dioxide 24 mmol/L (21-32); Chloride 103 mmol/L (98-108); Estimated Glomerular Filt Rate > 60; Glucose 91 mg/dL (70-99); Osmolality Calculated 286 mOsm/kg (285-295); Potassium 3.8 mmol/L (3.5-5.1); Sodium 138 mmol/L (136-145); Total Protein 7.8 g/dL (6.4-8.2)
[2023-11-24 17:07] LABS: Beta HCG Quantitative < 1.00 mIU/mL (0-6)
== END 2023-11-24 16:17 | disposition home or self-care (01) ==
LOC: CHSLAB 16:19
PROVIDERS: PCP Family Medicine; Visit Provider Nurse Practitioner Family
DX: R40.0 Somnolence (principal)
CPT/HCPCS: 36415; 80053; 84702; 85025

== ENCOUNTER 2023-12-19 13:54 | Outpatient (CLI) | payer BC, SELFPAY ==
--- NOTE | ~2023-12-19 | US_ITS ---
EXAMINATION: US carotid duplex BI DATE: 12/19/2023 14:29 INDICATION: Dizziness. Headaches. TECHNIQUE: Grayscale, color Doppler, and pulsed Doppler images of the cervical carotid arteries were obtained. The degree of vessel stenosis is placed in one of the following categories: normal, <50%, 5 0-69%, >=70% but less than near-occlusion, near-occlusion, or total occlusion. Note that percent sten osis relative to normal distal artery lumen diameter is indirectly measured from velocity measurement s as described by Nahid, et al. Radiology 2003; 229:340-346. Notes: Normal: Peak systolic velocity <125 centimeters/sec and no plaque <50%. Peak systolic velocity <125 ( EDV <40; ICA/CCA PSV ratio <2.0; used these factors only a tandem lesions or low cardiac output or co ntralateral disease) 50-69 %: PSV 125-230 (EDV 40-100; ratio 2-4) >= 70% but less than near occlusion: PSV greater than 230 (EDV > 100; ratio> 4.0) Near Occlusion: PSV that is variable; markedly narrowed lumen Occlusion: Absent flow on color/spectral Doppler and no lumen on huang scale. COMPARISON: None. FINDINGS: RIGHT: The right common carotid artery (CCA) peak systolic velocity (PSV) is 113 cm/s. The right internal ca rotid artery (ICA) PSV is 87 cm/s. The right ICA end-diastolic velocity (EDV) is 21 cm/s. The right I CA/CCA PSV ratio is 0.77. The external carotid artery (ECA) PSV is 86 cm/s. There is antegrade flow i n the right vertebral artery. LEFT: The left CCA PSV is 128 cm/s. The left ICA PSV is 110 cm/s. The left ICA EDV is 55 cm/s. The left ICA /CCA PSV ratio is 0.86. The ECA PSV is 90 cm/s. There is antegrade flow in the left vertebral artery . IMPRESSION: 1. Less than 50% stenosis in the right internal carotid artery by sonographic criteria. 2. Less than 50% stenosis in the left internal carotid artery by sonographic criteria. Reviewed, dictated and finalized at location B. IMPRESSION: 1. Less than 50% stenosis in the right internal carotid artery by sonographic c genaro. 2. Less than 50% stenosis in the left internal carotid artery by sonographic cr bridget.
== END 2023-12-19 13:55 | disposition home or self-care (01) ==
LOC: CHSIMG 13:55
PROVIDERS: PCP Family Medicine; Visit Provider Family Medicine
DX: R09.89 Other specified symptoms and signs involving the circulatory and respiratory systems (principal); I65.23 Occlusion and stenosis of bilateral carotid arteries
CPT/HCPCS: 93880

== ENCOUNTER 2024-03-06 16:50 | Emergency (ER) | payer BC, SELFPAY ==
[2024-03-06 16:58] VITALS: BP 119/89; PULSE 78; RESP 16; TEMP 36.6; O2SAT 100
--- NOTE | 2024-03-06 17:23 | ED.GENADULT ---
HPI - General Adult General Chief complaint: Urogenital-Female Stated complaint: UTI/ Sinus congestion Time Seen by Provider: 03/06/24 17:23 Source: patient, RN notes reviewed and old records reviewed Mode of arrival: ambulatory Limitations: no limitations History of Present Illness HPI narrative: 23-year-old female to Express Care for complaint of productive cough, nasal congestion, bilateral ear pain, postnasal drainage worse tonight for 3 weeks. Patient has attempted to treat home with Mucinex and Tylenol. Patient also endorsing urinary urgency and pressure with urination for 1 week. Patient endorses history pneumonia and bronchitis. Patient denies shortness of breath, sore throat, difficulty swallowing, abdominal pain, flank pain, nausea, vomiting, diarrhea, fever. Patient able to tolerate fluids by mouth. Patient resting comfortably in exam room. Respirations even and nonlabored. Patient in no acute distress. Related Data Allergies Allergy/AdvReac Type Severity Reaction Status Date / Time Sulfa (Sulfonamide Allergy Rash Verified 03/06/24 17:33 Antibiotics) Review of Systems Review of Systems: All systems reviewed & are unremarkable except as noted in HPI and below Constitutional: Constitutional: Reports no additional constitutional complaints Eyes: Eyes: Reports no additional eye complaints ENT: Reports as per HPI, Reports otalgia ( bilateral), Reports nasal congestion, Reports nasal discharge, Reports post nasal drip and Denies sore throat Cardiovascular: Cardiovascular: Reports no additional cardiovascular complaints, Denies chest pain and Denies dyspnea Respiratory: Respiratory: Reports no additional respiratory complaints, Denies cough and Denies dyspnea Genitourinary: Genitourinary: Reports as per HPI, Reports nocturia, Reports pelvic pain ( pressure per patient) and Denies flank pain Musculoskeletal: Musculoskeletal: Reports no additional musculoskeletal complaints Neurologic: Reports system reviewed and no additional complaints, except as documented Psychiatric: Psychiatric: Reports no additional psychiatric complaints [facility] Past Medical History Medical History Acid reflux Asthma Depression Surgical History Surgical History H/O dilation and curettage History of appendectomy Family History Family History Mother Hypertension Mother Rheumatoid arthritis Hypertension Heart disease Father Pneumothorax Grandparent Breast cancer Ovarian cancer Lung cancer Hyperthyroidism Social History Social History Smoking status: Never smoker Alcohol intake: never Substance use: never Comments At the time of my signature, I reviewed and agree with the nursing past medical, surgical, social, and family history. There is no relevant family history pertinent to the patient complaint. Exam Const: General: cooperative, no acute distress, alert, ill appearing acutely, tired appearing, uncomfortable and well nourished Nutritional Appearance: well nourished Orientation/consciousness: patient oriented x3 Limitations: no limitations HENMT: Head: normal to inspection Ears: external ears normal and TM abnormal dull bilateral and with fluid behind the TM bilateral Face/Nose/Sinus: Normal external nose present, Abnormal mucous membranes and turbinates present boggy and erythematous, Nasal discharge present purulent, normal facial exam, No erythema and No edema Face and sinus: normal facial exam, no erythema and no edema Mouth: Yes Normal oral and palatal mucosa present Throat: posterior oropharynx abnormal and postnasal drainage Eyes: General: appearance normal, both eyes and all related structures Neck: Neck: normal visual inspection, full ROM and no
[2024-03-06 17:24] LABS: EDUAAPPEAR Cloudy; EDUABILI Negative; EDUABLOOD Negative; EDUACOLOR1 Light/Pale; EDUAGLUCOSE Negative; EDUAKETONE Negative; EDUALEUKO 1+; EDUANITRATE Negative; EDUAPH 7.5; EDUAPROTEIN Negative
== END 2024-03-06 17:38 | disposition home or self-care (01) ==
PROVIDERS: Emergency Provider Nurse Practitioner Family; PCP Family Medicine
DX: J01.90 Acute sinusitis, unspecified (principal); N39.0 Urinary tract infection, site not specified; K21.9 Gastro-esophageal reflux disease without esophagitis; J45.909 Unspecified asthma, uncomplicated
CPT/HCPCS: 81003; 87086; 99213; G0463

== ENCOUNTER 2024-05-13 13:57 | Emergency (ER) | payer BC, SELFPAY ==
[2024-05-13] VITALS (20 sets, daily range): BP systolic 90–119; BP diastolic 61–89; PULSE 77–110; RESP 16–17; TEMP 36.2–36.8; O2SAT 99–100
--- NOTE | ~2024-05-13 | CT_ITS ---
EXAMINATION: CT brain wo con DATE: 05/13/2024 14:43 INDICATION: syncope, headache, dizziness, N/V . TECHNIQUE: Computed tomography (CT) of the head was performed without intravenous contrast. The mA wa s adjusted according to patient size. Iterative reconstruction technique was employed. The dose-lengt h product was 605.33 mGy-cm. COMPARISON: MR brain 03/18/2021. FINDINGS: No acute intracranial hemorrhage or extra-axial fluid collection. No hydrocephalus, mass, or herniation. No acute ischemic infarct. Unremarkable dural venous sinus attenuation. No acute osseous abnormality. The aerated spaces are clear. IMPRESSION: No acute intracranial process. Reviewed, dictated and finalized at location K. [employer] SAL[employer] CONSULTANT
--- NOTE | 2024-05-13 14:08 | ECG_ITS ---
Test Date: 2024-05-13 14:19:57 Measurements Intervals Craig Rate: 87 P: 50 TN: 161 QRS: 51 QRSD: 90 T: 34 QT: 351 QTc: 422 Interpretive Statements SINUS RHYTHM POSSIBLE LEFT ATRIAL ENLARGEMENT BASELINE ARTIFACT- I, II, AVR, AVL, V1 BORDERLINE ECG No previous ECG available for comparison Electronically Signed On 05-13-2024 18:25:32 [employer]UD[employer] by Rodolfo Dukes D.O.
--- NOTE | 2024-05-13 14:10 | ED_ITS ---
HPI - General Adult General Chief complaint: Nausea/Vomiting/Diarrhea Stated complaint: vomiting Time Seen by Provider: 05/13/24 14:00 History of Present Illness HPI narrative: Cece is a 23F with a PMH of BPPV, cluster headaches that presented to the ED not feeling well. She was at [employer] with a friend for drinks when all of a sudden she became lightheaded dizzy and felt like she was going to pass out. She was taken home by a friend. She believes she passed out at home and is unsure if she hit her head. Since waking up today she continues to be dizzy, is very nauseated, has not urinated and has had many episodes of non-bloody vomiting. She has not kept anything down all day and has not urinated. Related Data Allergies Allergy/AdvReac Type Severity Reaction Status Date / Time Sulfa (Sulfonamide Allergy Rash Verified 05/13/24 14:09 Antibiotics) Review of Systems Review of Systems: All systems reviewed & are unremarkable except as noted in HPI and below PMFSH Past Medical History Medical History Acid reflux Asthma Depression Surgical History Surgical History H/O dilation and curettage History of appendectomy Family History Family History Mother Hypertension Mother Rheumatoid arthritis Hypertension Heart disease Father Pneumothorax Grandparent Breast cancer Ovarian cancer Lung cancer Hyperthyroidism Social History Social History Smoking status: Never smoker Alcohol intake: never Substance use: never Exam Const: General: cooperative, healthy appearing, comfortable, no acute distress, well developed, alert, awake and Physically active Orientation/consciousness: oriented to person, oriented to place and oriented to time HENMT: Head: normal to inspection, normocephalic and atraumatic Ears: hearing grossly normal bilaterally and external ears normal Face/Nose/Sinus: Normal external nose present Other: Very dry mucous membranes Eyes: General: appearance normal, both eyes and all related structures Periorbital: periorbital findings normal Sclera: sclerae normal Pupils: Equal, round and reactive pupils present Neck: Neck: normal visual inspection Chest: Chest palpation & inspection: normal inspection of the chest Resp: Effort & Inspection: normal respiratory effort, able to speak in complete sentences and no respiratory distress Auscultation: clear to auscultation bilaterally Cardio: Jugular venous distension: no JVD Rate: regular rate Rhythm: regular rhythm GI: Inspection: normal to inspection GI Palp: Yes Soft to palpation Auscultation: normal bowel sounds Skin: General skin exam: normal color and no rashes or lesions noted Neuro: General: oriented to person, oriented to place and oriented to time Cranial nerves: Yes Equal, round and reactive pupils present Other: CNII-XII intact as tested. Extrem: General: normal to inspection Psych: Affect: Anxious affect present Course Course Emergency Course: Ordered fluids and diphenhydramine. Ordered labs and CT. EKG showed NSR with a rate of 87, normal axis, no ST elevation/depression or ectopy EXAMINATION: CT brain wo con DATE: 05/13/2024 14:43 INDICATION: syncope, headache, dizziness, N/V . TECHNIQUE: Computed tomography (CT) of the head was performed without intravenous contrast. The mA was adjusted according to patient size. Iterative reconstruction technique was employed. The dose-length product was 605.33 mGy- cm. COMPARISON: MR brain 03/18/2021. FINDINGS: No acute intracranial hemorrhage or extra-axial fluid collection. No hydrocephalus, mass, or herniation. No acute ischemic infarct. Unremarkable dural venous sinus attenuation. No acute osseous abnormality. The aerated spaces are clear. IMPRESSION: No acute intracranial process. Dizziness was improved after the first later but the nausea persisted so Zofran was ordered. After Zofran and the second liter she felt much better Vital Signs Vital signs: Vital Signs Temperature 97.1 F L 05/13/24 14:04 Pulse Rate 110 H 05/13/24 14:04 Respiratory Rate 17 05/13/24 14:04 Blood Pressure 118/89 05/13/24 14:04 Pulse Oximetry 100 05/13/24 14:04 Oxygen Delivery Room Air 05/13/24 14:04 Temperature 97.1 F L 05/13/24 14:04 Pulse Rate 110 H 05/13/24 14:04 Respiratory Rate 17 05/13/24 14:04 Blood Pressure 118/89 05/13/24 14:04 Pulse Oximetry 100 05/13/24 14:04 Oxygen Delivery Room Air 05/13/24 14:04 Medical Decision Making Vital Signs Vital Signs: Vital Signs Temperature 97.1 F L 05/13/24 14:04 Pulse Rate 110 H 05/13/24 14:04 Respiratory Rate 17 05/13/24 14:04 Blood Pressure 118/89 05/13/24 14:04 Pulse Oximetry 100 05/13/24 14:04 Oxygen Delivery Room Air 05/13/24 14:04 Temperature 97.1 F L 05/13/24 14:04 Pulse Rate 110 H 05/13/24 14:04 Respiratory Rate 17 05/13/24 14:04 Blood Pressure 118/89 05/13/24 14:04 Pulse Oximetry 100 05/13/24 14:04 Oxygen Delivery Room Air 05/13/24 14:04 Lab Data 05/13/24 15:29 05/13/24 15:29 Labs: Lab Results 05/13/24 05/13/24 05/13/24 Range/Units 14:08 14:12 14:16 WBC (4.8-10.8) K/mm3 RBC (4.20-5.40) M/mm3 Hgb (12.0-15.0) g/dL Hct (35.0-49.0) % MCV (78.0-102.0) fL MCH (27.0-31.0) pg MCHC (32-36) g/dL RDW (11.6-14.4) % Plt Count (150-420) K/mm3 MPV (9.2-11.8) fl Immature Gran % (Auto) (0.0-0.0) % Neut % (Auto) (50.0-70.0) % Lymph % (Auto) (18.0-42.0) % [place] % (Auto) (2.0-11.0) % Eos % (Auto) (1.0-6.0) % Baso % (Auto) (0.0-1.0) % Lymph # (Auto) (1.10-4.50) K/mm3 [place] # (Auto) (0.10-0.90) K/mm3 Eos # (Auto) (0.02-0.50) K/mm3 Baso # (Auto) (0.00-0.10) K/mm3 Abs Immat Gran (auto) (0.00-0.00) K/mm3 Absolute Neuts (auto) (1.70-7.20) K/mm3 Absolute Nucleated RBC (0.00-0.00) K/mm3 Nucleated RBC % (0-0.0) % Sodium (136-145) mmol/L Potassium (3.5-5.1) mmol/L Chloride (98-108) mmol/L Carbon Dioxide (21-32) mmol/L Anion Gap (4-12) mmol/L BUN (7-18) mg/dL Creatinine (0.55-1.02) mg/dL Estim Creat Clear Calc ml/min Estimated GFR (59 - ) Glucose (70-99) mg/dL POC Capillary Glucose 103 (65-105) mg/dl Calculated Osmolality (285-295) mOsm/kg Calcium (8.5-10.1) mg/dL Magnesium (1.8-2.4) mg/dL Total Bilirubin (0.00-1.00) mg/dL AST (15-37) U/L ALT (14-59) U/L Alkaline Phosphatase (46-116) U/L Troponin I (0.00-60.4) ng/L Total Protein (6.4-8.2) g/dL Albumin (3.4-5.0) g/dL Urine Test Negative Urine Opiates Screen Negative (Negative) Urine Methadone Screen Negative (Negative) Ur Barbiturates Screen Negative (Negative) Ur Phencyclidine Scrn Negative (Negative) Ur Amphetamine Screen Negative (Negative) U Benzodiazepines Scrn Negative (Negative) Urine Cocaine Screen Negative (Negative) U Cannabinoids Screen Negative (Negative) 05/13/24 Range/Units 15:29 WBC 10.1 (4.8-10.8) K/mm3 RBC 4.69 (4.20-5.40) M/mm3 Hgb 13.4 (12.0-15.0) g/dL Hct 40.1 (35.0-49.0) % MCV 85.5 (78.0-102.0) fL MCH 28.6 (27.0-31.0) pg MCHC 33.4 (32-36) g/dL RDW 13.2 (11.6-14.4) % Plt Count 254 (150-420) K/mm3 MPV 9.6 (9.2-11.8) fl Immature Gran % (Auto) 0.4 H (0.0-0.0) % Neut % (Auto) 81.6 H (50.0-70.0) % Lymph % (Auto) 12.4 L (18.0-42.0) % [place] % (Auto) 4.8 (2.0-11.0) % Eos % (Auto) 0.6 L (1.0-6.0) % Baso % (Auto) 0.2 (0.0-1.0) % Lymph # (Auto) 1.25 (1.10-4.50) K/mm3 [place] # (Auto) 0.48 (0.10-0.90) K/mm3 Eos # (Auto) 0.06 (0.02-0.50) K/mm3 Baso # (Auto) 0.02 (0.00-0.10) K/mm3 Abs Immat Gran (auto) 0.04 H (0.00-0.00) K/mm3 Absolute Neuts (auto) 8.22 H (1.70-7.20) K/mm3 Absolute Nucleated RBC 0.00 (0.00-0.00) K/mm3 Nucleated RBC % 0.0 (0-0.0) % Sodium 139 (136-145) mmol/L Potassium 3.6 (3.5-5.1) mmol/L Chloride 103 (98-108) mmol/L Carbon Dioxide 27 (21-32) mmol/L Anion Gap 9 (4-12) mmol/L BUN 10 (7-18) mg/dL Creatinine 0.92 (0.55-1.02) mg/dL Estim Creat Clear Calc 85 ml/min Estimated GFR > 60 (59 - ) Glucose 85 (70-99) mg/dL POC Capillary Glucose (65-105) mg/dl Calculated Osmolality 286 (285-295) mOsm/kg Calcium 8.9 (8.5-10.1) mg/dL Magnesium 2.0 (1.8-2.4) mg/dL Total Bilirubin 0.6 (0.00-1.00) mg/dL AST 16 (15-37) U/L ALT 24 (14-59) U/L Alkaline Phosphatase 75 (46-116) U/L Troponin I < 4.0 (0.00-60.4) ng/L Total Protein 7.8 (6.4-8.2) g/dL Albumin 4.1 (3.4-5.0) g/dL Urine Test Urine Opiates Screen (Negative) Urine Methadone Screen (Negative) Ur Barbiturates Screen (Negative) Ur Phencyclidine Scrn (Negative) Ur Amphetamine Screen (Negative) U Benzodiazepines Scrn (Negative) Urine Cocaine Screen (Negative) U Cannabinoids Screen (Negative) Discharge Plan Discharge Clinical Impression: Nausea & vomiting Patient Disposition: Home, Self-Care Condition: Stable Instructions: Acute Nausea and Vomiting (ED) Prescriptions: New ondansetron 4 mg tablet,disintegrating 4 mg PO Q8H Qty: 20 0RF Follow-up/Referrals: UNKNOWN,DOCTOR [Non-Staff] -
[2024-05-13 14:11] LABS: Glucose Point of Care 103 mg/dl (65-105)
--- NOTE | 2024-05-13 14:11 | PC.NURSE ---
blood glucose 103
[2024-05-13] MEDS: diphenhydrAMINE HCl INJ 50 MG/ML VIAL IV PUSH (14:17)
[2024-05-13] MEDS: SODIUM CHLORIDE 0.9% IV 1,000 ML 999 ML IV CONT ×2 (14:17→15:39)
--- NOTE | 2024-05-13 14:23 | PC.NURSE ---
Patient states she has taken 4 tablets of zofran prior to coming to ED today, ERP made aware, zofran IV canceled.
[2024-05-13 14:59] LABS: Pregnancy On Board Control Positive; Urine Pregnancy Test Negative
[2024-05-13 15:05] LABS: Amphetamine Screen Urine Negative (Negative); Barbiturate Screen Urine Negative (Negative); Benzodiazepines Screen Urine Negative (Negative); Cannabinoid Screen Urine Negative (Negative); Cocaine Screen Urine Negative (Negative); Methadone Screen Urine Negative (Negative); Opiate Screen Urine Negative (Negative); Phencyclidine Screen Urine Negative (Negative)
[2024-05-13 15:33] LABS: Basophils Absolute Auto 0.02 K/mm3 (0.00-0.10); Basophils Percent Auto 0.2 % (0.0-1.0); Eosinophils Absolute Auto 0.06 K/mm3 (0.02-0.50); Eosinophils Percent Auto 0.6 % (1.0-6.0); Hematocrit 40.1 % (35.0-49.0); Hemoglobin 13.4 g/dL (12.0-15.0); Immature Granulocyte Absolute 0.04 K/mm3 (0.00-0.00); Immature Granulocyte Percent A 0.4 % (0.0-0.0); Lymphocytes Absolute Auto 1.25 K/mm3 (1.10-4.50); Lymphocytes Percent Auto 12.4 % (18.0-42.0); Mean Corpuscular HGB Conc 33.4 g/dL (32-36); Mean Corpuscular Hemoglobin 28.6 pg (27.0-31.0); Mean Corpuscular Volume 85.5 fL (78.0-102.0); Mean Platelet Volume 9.6 fl (9.2-11.8); Monocytes Absolute Auto 0.48 K/mm3 (0.10-0.90); Monocytes Percent Auto 4.8 % (2.0-11.0); Neutrophils Absolute Auto 8.22 K/mm3 (1.70-7.20); Neutrophils Percent Auto 81.6 % (50.0-70.0); Platelet Count Result 254 K/mm3 (150-420); Red Blood Count 4.69 M/mm3 (4.20-5.40); Red Cell Distribution Width 13.2 % (11.6-14.4); White Blood Count 10.1 K/mm3 (4.8-10.8)
[2024-05-13] MEDS: ONDANSETRON INJ 4 MG/2 ML VIAL IV PUSH (15:39)
[2024-05-13 15:54] LABS: Alanine Aminotransferase 24 U/L (14-59); Albumin Level 4.1 g/dL (3.4-5.0); Alkaline Phosphatase 75 U/L (46-116); Anion Gap 9 mmol/L (4-12); Aspartate Amino Transferase 16 U/L (15-37); Bilirubin,Total 0.6 mg/dL (0.00-1.00); Blood Urea Nitrogen 10 mg/dL (7-18); Calcium 8.9 mg/dL (8.5-10.1); Carbon Dioxide 27 mmol/L (21-32); Chloride 103 mmol/L (98-108); Estimated CRCL calculation 85 ml/min; Estimated Glomerular Filt Rate > 60; Glucose 85 mg/dL (70-99); Osmolality Calculated 286 mOsm/kg (285-295); Potassium 3.6 mmol/L (3.5-5.1); Sodium 139 mmol/L (136-145); Total Protein 7.8 g/dL (6.4-8.2)
[2024-05-13 15:55] LABS: Troponin I < 4.0 ng/L (0.00-60.4)
== END 2024-05-13 17:10 | disposition home or self-care (01) ==
PROVIDERS: Emergency Provider Family Medicine; PCP Family Medicine
DX: R11.2 Nausea with vomiting, unspecified (principal)
CPT/HCPCS: 36415; 70450; 80053; 80307; 81025; 82948; 83735; 84484; 85025; 93005; 96361; 96374; 96375; 99284; J1200; J2405; J7030

== ENCOUNTER 2024-05-14 16:49 | Outpatient (NON) | payer BC, SELFPAY ==
[2024-05-14 17:46] LABS: Add Urine Microscopic? YES; Appearance Urine Clear (Clear); Bilirubin Urine Negative (Negative); Blood Urine Negative (Negative); Color Urine Light Yellow (Yellow); Glucose Urine UA Negative (Negative); Ketones Urine Negative (Negative); Leukocyte Esterase Ur Trace LEU/UL (Negative); Nitrate Urine Negative (Negative); Protein Urine Negative (Negative); Urobilinogen Urine 0.2 mg/dL (0.2-1.0); pH Urine 7.5 (5.0-8.0)
[2024-05-14 17:55] LABS: RBC Urine None seen /hpf (0-2)
[2024-05-14 17:56] LABS: Bacteria Urine 3+ /hpf; Squamous Epithelial Cell Urine Moderate /hpf (Few); WBC Urine 0-3 /hpf (0-3)
== END 2024-05-14 16:50 | disposition home or self-care (01) ==
LOC: CHSLAB 16:51
PROVIDERS: Visit Provider Nurse Practitioner Family
DX: R39.9 Unspecified symptoms and signs involving the genitourinary system (principal)
CPT/HCPCS: 81001

== ENCOUNTER 2024-06-06 09:07 | Outpatient (CLI) | payer OTHER, SELFPAY ==
--- NOTE | ~2024-06-06 | US_ITS ---
US breast BI complete INDICATION: Bilateral breast lumps. Nipple discharge. TECHNIQUE: Dedicated bilateral complete breast ultrasound including all 4 quadrants in the periareola r locations COMPARISON: No prior studies for comparison. FINDINGS: The breasts are composed of normal heterogeneous echotexture without focal solid or cystic mass. IMPRESSION: 1: Normal bilateral breast ultrasound. BI-RADS CATEGORY 1 - NEGATIVE Reviewed, dictated and finalized at location B. NTORY ADMINISTRATOR
[2024-06-06 09:48] LABS: Hemoglobin A1C 4.7 % (<5.7)
[2024-06-06 10:18] LABS: Thyroid Stimulating Hormone Reflex 1.07 u/IU/mL (0.36-3.74)
[2024-06-06 10:35] LABS: Beta HCG Quantitative < 1.00 mIU/mL (0-6)
[2024-06-06 10:49] LABS: Erythrocyte Sedimentation Rate 12 mm/hr (0-15)
[2024-06-06 11:08] LABS: Rheumatoid Factor Screen Negative (Negative)
[2024-06-07 10:18] LABS: ANA Cascade Screen NEGATIVE (NEGATIVE)
[2024-06-08 04:08] LABS: FSH 7.1 mIU/mL; LH 6.8 mIU/mL; Prolactin 4.8 ng/mL
== END 2024-06-06 09:08 | disposition home or self-care (01) ==
PROVIDERS: Nurse Practitioner Family; PCP Family Medicine; Visit Provider Nurse Practitioner Family
DX: Z00.00 Encounter for general adult medical examination without abnormal findings (principal); N64.3 Galactorrhea not associated with childbirth; N92.6 Irregular menstruation, unspecified; M24.80 Other specific joint derangements of unspecified joint, not elsewhere classified; N63.10 Unspecified lump in the right breast, unspecified quadrant; N63.20 Unspecified lump in the left breast, unspecified quadrant; N64.52 Nipple discharge; M25.50 Pain in unspecified joint
CPT/HCPCS: 36415; 76641; 82672; 83001; 83002; 83036; 83516; 84146; 84402; 84403; 84443; 84702; 85652; 86038; 86225; 86235; 86430

== ENCOUNTER 2024-07-31 13:57 | Outpatient (NON) | payer OTHER, SELFPAY ==
[2024-07-31 14:26] LABS: Add Urine Microscopic? YES; Appearance Urine Clear (Clear); Bilirubin Urine Negative (Negative); Blood Urine Negative (Negative); Glucose Urine UA Negative (Negative); Ketones Urine Negative (Negative); Leukocyte Esterase Ur 1+ LEU/UL (Negative); Nitrate Urine Negative (Negative); Protein Urine Negative (Negative); Urobilinogen Urine 0.2 mg/dL (0.2-1.0)
--- OUTSIDE RECORDS SUMMARY | 2024-07-31 14:37 | XMS_ITS | Clinical Summary ---
Author Organization [facility] Address [address] [address] Phone Care Team Providers Care Paste Plant Supervisor Name Role Phone Unavailable Primary Care Provider Unavailabl e Social History Tobacco Use Types Packs/Day Years Used Date Smoking Tobacco: Never Assessed Comments Unknown Sex and Gender Information Value Date Recorded Sex Assigned at Not on file Legal Sex Female 10:30 AM CDT Gender Identity Not on file Sexual Orientation Not on file Plan of Treatment Health Maintenance Due Date Last Done Comments Hepatitis C Virus (HCV) Screening 1998 TdaP Immunization 1998 Human Papillomavirus (HPV) Immunization (1 - 3-dose series) 2013 Hepatitis B Immunization (1 of 3 - 19+ 3-dose series) 2017 Pap Smear 2019 Influenza Immunization (#1) 2024 SARS-COV-2 Immunization ( season) 2024 Respiratory Syncytial Virus (RSV) Immunization (Adult) (1 - 1-dose 75+ series) 2073 Meningococcal Immunization (ACWY) Aged Out No longer eligible based on patient's age to complete this topic Pneumococcal Immunization Combined Aged Out No longer eligible based on patient's age to complete this topic Rotavirus Immunization Aged Out No lo nger eligible based on patient's age to complete this topic
[2024-07-31 14:38] LABS: Color Urine Yellow (Yellow); RBC Urine None seen /hpf (0-2)
[2024-07-31 14:39] LABS: Bacteria Urine 2+ /hpf; Squamous Epithelial Cell Urine Moderate /hpf (Few)
== END 2024-07-31 13:58 | disposition home or self-care (01) ==
PROVIDERS: PCP Family Medicine; Visit Provider Nurse Practitioner Family
DX: R39.9 Unspecified symptoms and signs involving the genitourinary system (principal)
CPT/HCPCS: 81001; 87086

== ENCOUNTER 2024-08-14 08:35 | Outpatient (CLI) | payer OTHER, SELFPAY ==
--- OUTSIDE RECORDS SUMMARY | 2024-08-14 09:12 | XMS_ITS | Clinical Summary ---
Author Organization [facility] Address [address] [place] [address] Care Team Providers Care Sound Effects Manager Name Role Phone Kaye Rob MD Primary Care Provider [phone] Allergies Active Allergy Reactions Criticality Noted Date Comments Sulfa Antibiotics Rash Low 10/22/2017 Medications ondansetron (ZOFRAN-ODT) 4 MG disintegrating tablet Take 1 tablet (4 mg total) by mouth every 8 (eight) hours as needed for Nausea. 20 tablet 3 Active Active Problems Problem Noted Date Diagnosed Date ([facility]) 11/08/2017 Threatened labor ([facility]) 10/22/2017 Encounters Date Type Department Care Team Description 07/24/2024 3:19 PM GARDEN EQUIPMENT MECHANIC - 07/24/2024 11:59 PM [facility] Hospital Encounter [facility] [address] [place] [address] Navjot Hayward MD Discharge Disposition: Home or Self Care (Routine Discharge) 06/07/2024 2:12 PM GARDEN EQUIPMENT MECHANIC - 06/07/2024 11:59 PM [facility] Hospital Encounter [facility] [address] [place] [address] Navjot Hayward MD Discharge Disposition: Home or Self Care (Routine Discharge) 06/07/2024 Orders Only [facility] [address] [place] [address] Navjot Hayward MD from Last 3 Months Family History Medical History Relation Comments Heart Attack Maternal Grandfather Heart Attack Mother Hypertension Mother Lung Cancer Paternal Grandmother Relation Status Comments Maternal Grandfather Mother Paternal Grandmother Social History Tobacco Use Types Packs/Day Years Used Date Smoking Tobacco: Never Smokeless Tobacco: Never Alcohol Use Standard Drinks/Week Comments No 0 (1 standard drink = 0.6 oz pur e alcohol) Comments No Sex and Gender Information Value Date Recorded Sex Assigned at Not on file Legal Sex Female 9:55 PM GARDEN EQUIPMENT MECHANIC Gender Identity Not on file Sexual Orientation Not on file Last Filed Vital Signs Vital Sign Reading Time Taken Comments Blood Pressure 105/82 12/28/2022 6:30 PM CDT Pulse 80 12/28/2022 2:50 PM CDT Temperature 37.1 C (98.8 F) 12/28/2022 2:50 PM CDT Respiratory Rate 18 12/28/2022 2:50 PM CDT Oxygen Saturation 100% 12/28/2022 6:30 PM CDT Inhaled Oxygen Concentration - - Weight 78.6 kg (173 lb 6 oz) 12/28/2022 2:50 PM CDT Height 165.1 cm (5' 5 ) 12/28/2022 2:50 PM CDT Body Mass Index 28.85 12/28/2022 2:50 PM CDT Plan of Treatment Health Maintenance Due Date Last Done Comments Annual Physical 2001 HPV Vaccines (1 - 3-dose series) 2013 COVID-19 Vaccine ( season) 2024 05/26/2021, 07/21/2020, 07/01/2020 Influenza Adult (#1) 2024 05/31/2017 PHQ-2 (Physician Unga) 07/04/2024 Cervical Cancer Screening Pap Smear (Age 21 to 29) Every 3 Years 06/07/2027 06/07/2024, 04/26/2023, 04/28/2020 Cervical Cancer Screening 06/07/2027 DTaP, Tdap and Td Vaccines (9 - Td or Tdap) 08/30/2027 08/30/2017, 01/07/2016, 02/20/2013, Additional history exists Hepatitis B Vaccines Completed 01/26/2000, 1998, 1998 Chlamydia Screening Females ages 16-24 Discontinued 06/07/2024, 04/26/2023, 04/20/2022, Additional history exists Hepatitis C Completed 06/07/2024 Meningococcal B Vaccine Aged Out No l onger eligible based on patient's age to complete this topic Meningococcal Vaccine Aged Out No navin sakshi eligible based on patient's age to complete this topic Pneumococcal Vaccine: Pediatrics (0 to 5 Years) and At-Risk Patients (6 to 64 Years) Aged Out No longer eligible based on patient's age to complete this topic RSV Immunizations Under 20 Months Aged Out No longer eligible based on patient's age to complete this topic Procedures Procedure Name Priority Date/Time Associated Diagnosis Comments PATHOLOGY Routine 07/24/2024 12:00 AM GARDEN EQUIPMENT MECHANIC VAGINITIS SCREEN (VDS) Routine 06/07/2024 2:14 PM GARDEN EQUIPMENT MECHANIC Other specified noninflammatory disorders of vagina CULTURE URINE (OUTPATIENTS) Routine 06/07/2024 2:14 PM GARDEN EQUIPMENT MECHANIC Unspecified symptoms and signs involving the genitourinary system CHLAMYDIA GC RNA Routine 06/07/2024 12:0 0 PM GARDEN EQUIPMENT MECHANIC Other specified noninflammatory disorders of vagina SYPHILIS AB (DIAGNOSTIC) WITH CASCADING REFLEX Routine 06/07/2024 12:00 PM GARDEN EQUIPMENT MECHANIC Encounter for screening for infections with a predominantly sexual mode of transmission HEPATITIS B SURFACE AG, EIA Routine 06/07/2024 12:00 PM GARDEN EQUIPMENT MECHANIC Encounter for screening for infections with a predominantly sexual mode of transmission HEPATITIS C ANTIBODY Routine 06/07/2024 12:00 PM GARDEN EQUIPMENT MECHANIC Encounter for screening for infections with a predominantly sexual mode of transmission HIV 1 ANTIGEN(S), WITH HIV-1 AND HIV-2 ANTIBODIES Routine 06/07/2024 12:00 PM GARDEN EQUIPMENT MECHANIC Encounter for screening for infections with a predominantly sexual mode of transmission CYTOPATH CERV/VAG THIN LAYER Routine 06/07/2024 12:00 AM GARDEN EQUIPMENT MECHANIC from Last 3 Months Results * Pathology (07/24/2024 12:00 AM GARDEN EQUIPMENT MECHANIC) PATHOLOGY [facility] Department of Laboratory Medicine [address] [place] [address] , extension [phone] Pathology Report Surgical Pathology Report Name: CECE ALFONSO Specimen #: [id number] Age: 1 2000 (Age: 23) Location: [facility] Sex: F Procedure Date: 07/24/2024 Hospital #: [id number] Date Received: 07/26/2024 Date Reported: 2024 Provider: NAVJOT HAYWARD MD Source: A: Cervix, biopsy at 2:00 B: Endocervix, curettage Clinical History: History of LSIL. FINAL DIAGNOSIS: A. Cervix, 2:00, biopsy: -Low-grade squamous intraepithelial lesion (LSIL). B. Endocervix, curettage: -Detached fragments of benign endocervical epithelium. -No squamous mucosa is present for evaluation. Gross Description: A. Received in formalin, labeled with a patient label and as 2:00 is a 0.3 cm piece of firm white-beltrán tissue. The specimen is entirely submitted in cassette A1. B. Received in formalin, labeled with a patient label and as ECC is a 1 x 1 x 0.2 cm aggregate of bloody mucoid material intermixed with a few fragments of possible tissue. The specimen is entirely submitted in cassette B1. Gross examination (when applicable), interpretation, and sign out were performed at [facility], [address] [place] [address]. Electronically Signed Out BLANCA JUDGE MD [facility] 07/24/2024 07/26/2024 9:1 9 AM GARDEN EQUIPMENT MECHANIC Comment:Cervix, biopsy at 2: 00&Endocervix, curettage us Navjot Hayward MD PATHOLOGY/CYTOLOGY ORDERABLES F inal Result [facility] [address] [place] [address], [phone] * CULTURE URINE (OUTPATIENTS) (06/07/2024 2:14 PM GARDEN EQUIPMENT MECHANIC) SPEC DESCRIPTION URINE CLEAN CATCH 06/07/2024 2:14 PM GARDEN EQUIPMENT MECHANIC [facility] SPECIAL REQUESTS NO SPECIAL REQUEST 06/07/2024 2:14 PM GARDEN EQUIPMENT MECHANIC [facility] CULTURE RESULT FEW CONTAMINANTS 01/2024 7:12 AM GARDEN EQUIPMENT MECHANIC [facility] URINE SPECIMEN OBTAINED BY CLEAN CATCH PROCEDURE / Unknown 06/07/2024 2:14 PM GARDEN EQUIPMENT MECHANIC 06/07/2024 2:35 PM GARDEN EQUIPMENT MECHANIC us Navjot Hayward MD MICROBIOLOGY - GENERAL ORDERABL ES Final Result Performing Organization Address [facility] de Phone Number [facility] [address] [place] [address], [phone] * (ABNORMAL) VAGINITIS SCREEN (VDS) (06/07/2024 2:14 PM GARDEN EQUIPMENT MECHANIC) SPECIMEN SOURCE VAGINAL SPECIMEN 06/07/2024 3:37 PM GARDEN EQUIPMENT MECHANIC [facility] TRICHOMONAS NEGATIVE NEGATIVE 06/07/2024 3:37 PM GARDEN EQUIPMENT MECHANIC [facility] Comment:NOT DETECTED BY DNA PROBE GARDNERELLA VAGINALIS POSITIVE(A) NEGATIVE 06/07/2024 3:37 PM GARDEN EQUIPMENT MECHANIC [facility] Comment:DETECTED BY DNA PROB E CJ SPECIES NEGATIVE NEGATIVE 3:37 PM GARDEN EQUIPMENT MECHANIC [facility] Comment:NOT DETECTED BY DNA PROBE 06/07/2024 2:14 PM GARDEN EQUIPMENT MECHANIC us Navjot Hayward MD MICROBIOLOGY - GENERAL ORDERABL ES Final Result Performing Organization Address [facility] Co de Phone Number [facility] [address] [place] [address], [phone] * SYPHILIS AB (DIAGNOSTIC) WITH CASCADING REFLEX (06/07/2024 12:00 PM GARDEN EQUIPMENT MECHANIC) SYPHILIS IGG IGM AB NON-REACTI VE NON-REACTI VE 06/07/2024 6:51 PM GARDEN EQUIPMENT MECHANIC [facility] Comment: No serologic evidence of syphilis. No follow-up necessary unless clinically indicated. 06/07/2024 12:0 0 PM GARDEN EQUIPMENT MECHANIC us Navjot Hayward MD LABORATORY Final Result Performing Organization Address [facility] Co de Phone Number [facility] [address] [place] [address], [place] [phone] * CHLAMYDIA GC RNA (06/07/2024 12:00 PM GARDEN EQUIPMENT MECHANIC) Pathologist [facility] SPECIMEN CERVICAL 06/07/2024 2:14 PM GARDEN EQUIPMENT MECHANIC [facility] CHLAMYDIA RNA TMA NEGATIVE NEGATIVE 024 3:39 PM GARDEN EQUIPMENT MECHANIC [facility] Comment:PERFORMED BY NUCLEIC ACID AMPLIFICATION N.GONORRHOEAE RNA TMA NEGATIVE NEGATIVE 06/08/2024 3:39 PM GARDEN EQUIPMENT MECHANIC [facility] Comment:PERFORMED BY NUCLEIC ACID AMPLIFICATION CERVICAL 06/07/2024 12:0 0 PM GARDEN EQUIPMENT MECHANIC us Navjot Hayward MD MICROBIOLOGY - GENERAL ORDERABL ES Final Result Performing Organization Address [facility] Co de Phone Number [facility] [address] [place] [address], [place] [phone] [facility] [address] [place] [address], [place] [phone] * HIV 1 ANTIGEN(S), WITH HIV-1 AND HIV-2 ANTIBODIES (06/07/2024 12:00 PM GARDEN EQUIPMENT MECHANIC) Pathologist [facility] HIV 1/2 AB+ HIV1 P24 AG NON-REACTI VE NON-REACTI VE 06/07/2024 6:51 PM GARDEN EQUIPMENT MECHANIC [facility] Comment:HIV 1 p24 Ag and HIV 1/ HIV 2 Ab not detected. 06/07/2024 12:0 0 PM GARDEN EQUIPMENT MECHANIC us Navjot Hayward MD LABORATORY Final Result Performing Organization Address City/[facility]/ZIP Co de Phone Number [facility] [address] [place] [address], [place] [phone] * HEPATITIS C ANTIBODY (06/07/2024 12:00 PM GARDEN EQUIPMENT MECHANIC) HEPATITIS C AB NON-REACTI VE NON-REACT HUNG 06/07/2024 6:51 PM GARDEN EQUIPMENT MECHANIC [facility] Comment: ANTIBODIES TO HCV NOT DETECTED. DOES NOT EXCLUDE THE POSSIBILITY OF EXPOSURE TO HCV. 06/07/2024 12:0 0 PM GARDEN EQUIPMENT MECHANIC us Navjot Hayward MD LABORATORY Final Result Performing Organization Address [facility] Co de Phone Number [facility] [address] [place] [address], [place] [phone] * HEPATITIS B SURFACE AG, EIA (06/07/2024 12:00 PM GARDEN EQUIPMENT MECHANIC) Pathologist [facility] HEPATITIS B SURFACE AG NON-REACTI VE NON-REACTI VE 06/07/2024 6:51 PM GARDEN EQUIPMENT MECHANIC [facility] Comment:HBsAg NOT DETECTED. 06/07/2024 12:0 0 PM GARDEN EQUIPMENT MECHANIC us Navjot Hayward MD LABORATORY Final Result Performing Organization Address City/[facility] Co de Phone Number [facility] [address] [place] [address], [place] [phone] * Cytopath Cerv/Vag Thin Layer (06/07/2024 12:00 AM GARDEN EQUIPMENT MECHANIC) THIN PREP PAP [address] [address] Department of Pathology Pathology Report CERVICAL/VAGINAL PAP SMEAR REPORT Name: CECE ALFONSO Age: 1 2000 (Age: 23) Location: [facility] Sex: F Collected Date: 06/07/2024 Hospital #: [id number] Date Received: 06/08/2024 Date Reported: 06/13/2024 Provider: NAVJOT HAYWARD MD INTERPRETATION ABNORMAL RESULT CERVICAL/ENDOCERVI RYAN: SATISFACTORY FOR EVALUATION. ENDOCERVICAL/TRANS FORMATION ZONE COMPONENT PRESENT. LOW GRADE SQUAMOUS INTRAEPITHELIAL LESION. Initial cytologic screening was performed at [address], [place] [address]. This case was interpreted and signed out at [facility], [address] [place] [address]. Electronically Signed Out NOEL Hinds MD (ASCP) CLINICAL HISTORY R87.619 ABNORMAL PAP SMEAR OF CERVIX SCREENING PAP ThinPrep Pap Test with HR HPV testing in patient > 21 years with ASC-US diagnosis. Date of Last Menstrual Period: UNKNOWN Menstrual Status: Regular SPECIMEN SUBMITTED CERVICAL/ENDOCERVI RYAN Specimen Received:1 Thin Prep Vial, Image Assisted Pap (SMD) Please note: The Pap smear is not a diagnostic test. It is a screening test. Negative results on combined screening (Pap test and HPV-DNA) have a high negative predictive value (99.1-100 percent) for cervical cancer. The pap test is not effective in detecting cervical adenocarcinoma. [facility] 06/07/2024 06/08/2024 1:0 4 PM GARDEN EQUIPMENT MECHANIC Comment:CERVICAL/ENDOCERVICA L us Navjot Hayward MD PATHOLOGY/CYTOLOGY ORDERABLES F inal Result [facility] [address] [place] [address], from Last 3 Months Insurance [facility] GENERIC - COMMERCIAL R Care Teams Sound Effects Manager Relationship Specialty Start Date End Date Kaye Rob MD [address] [place] [phone] PCP - General INTERNAL MEDICINE 10/22/17
--- OUTSIDE RECORDS SUMMARY | 2024-08-14 09:12 | XMS_ITS | Clinical Summary ---
Author Organization [facility] Address [address] [address] Phone Care Team Providers Care Restaurant Busser Name Role Phone Unavailable Primary Care Provider [...]
--- OUTSIDE RECORDS SUMMARY | 2024-08-14 09:12 | XMS_ITS | Encounter Summary ---
Author Organization [facility] Address [address] [place] [address] Care Team Providers Care Chief Diversity Officer Name Role Phone Kaye Rob MD Primary Care Provider [phone] Encounter Details Date Type Department Care Team (Late st Contact Info) Description 12/09/2018 Abstract [facility] CONVERSION [address] [place] [address] , Generic Conversion, Social History Tobacco Use Types Packs/Day Years Used Date Smoking Tobacco: Never Smokeless Tobacco: Never Alcohol Use Standard Drinks/Week Comments No 0 (1 standard drink = 0.6 oz pur e alcohol) Comments No Sex and Gender Information Value Date Recorded Sex Assigned at Not on file 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
[2024-08-14 09:58] LABS: Thyroid Stimulating Hormone Reflex 1.45 u/IU/mL (0.36-3.74)
[2024-08-15 09:38] LABS: C-Peptide 2.41 ng/mL (0.80-3.85)
[2024-08-16 03:59] LABS: Cortisol Random 8.8 mcg/dL
== END 2024-08-14 08:36 | disposition home or self-care (01) ==
LOC: CHSLAB 08:36
PROVIDERS: PCP Family Medicine; Visit Provider Nurse Practitioner Family
DX: Z00.00 Encounter for general adult medical examination without abnormal findings (principal); E16.2 Hypoglycemia, unspecified
CPT/HCPCS: 36415; 82533; 83527; 84443; 84681

== ENCOUNTER 2024-10-29 16:46 | Outpatient (NON) | payer OTHER, SELFPAY ==
--- OUTSIDE RECORDS SUMMARY | 2024-10-29 18:27 | XMS_ITS | Clinical Summary ---
Author Organization [facility] Address [address] [place] [address] Care Team Providers Care Hydrographer Name Role Phone Kaye Rob MD Primary Care Provider [phone] Allergies Active Allergy Reactions Criticality Noted Date Comments Sulfa Antibiotics Rash Low 10/22/2017 Medications ondansetron (ZOFRAN-ODT) 4 MG disintegrating tablet Take 1 tablet (4 mg total) by mouth every 8 (eight) hours as needed for Nausea. 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 Gender Identity Not on file Sexual Orientation [...] Vaccine ( season) 2024 05/26/2021, 07/21/2020, 07/01/2020 PHQ-2 (Physician Brumley) 07/04/2024 Cervical Cancer Screening Pap Smear (Age [...] 5 Years) and At-Risk Patients (6 to 49 Years) Aged Out No longer eligible based on patient's age to complete this topic RSV Immunizations Under 20 Months Aged Out No longer eligible based on patient's age to complete this topic Procedures Procedure Name Priority Date/Time Associated Diagnosis Comments CHLAMYDIA GC RNA Routine 06/07/2024 12:0 0 PM JUNIOR PROGRAMMER ANALYST Other specified noninflammatory disorders of vagina HEPATITIS C ANTIBODY Routine 06/07/2024 12:00 PM JUNIOR PROGRAMMER ANALYST Encounter for screening for infections with a predominantly sexual mode of transmission CYTOPATH CERV/VAG THIN LAYER Routine 06/07/2024 12:00 AM JUNIOR PROGRAMMER ANALYST from Last 3 Months or Most Recently Relevant to Health Maintenance Results * CHLAMYDIA GC RNA (06/07/2024 12:00 PM JUNIOR PROGRAMMER ANALYST) SPECIMEN CERVICAL 06/07/2024 2:14 PM JUNIOR PROGRAMMER ANALYST [facility] CHLAMYDIA RNA TMA NEGATIVE NEGATIVE 024 3:39 PM JUNIOR PROGRAMMER ANALYST [facility] Comment:PERFORMED BY NUCLEIC ACID AMPLIFICATION N.GONORRHOEAE RNA TMA NEGATIVE NEGATIVE 06/08/2024 3:39 PM JUNIOR PROGRAMMER ANALYST [facility] Comment:PERFORMED BY NUCLEIC ACID AMPLIFICATION CERVICAL 06/07/2024 12:0 0 PM JUNIOR PROGRAMMER ANALYST us Donovan Hayward MD MICROBIOLOGY - GENERAL ORDERABL ES Final Result Performing Organization Address [facility] Co de Phone Number [facility] [address] [place] [address], [facility] [address] [place] [address], [phone] * HEPATITIS C ANTIBODY (06/07/2024 12:00 PM JUNIOR PROGRAMMER ANALYST) HEPATITIS C AB NON-REACTI VE NON-REACT HUNG 06/07/2024 6:51 PM JUNIOR PROGRAMMER ANALYST [facility] Comment: ANTIBODIES TO HCV NOT DETECTED. DOES NOT EXCLUDE THE POSSIBILITY OF EXPOSURE TO HCV. 06/07/2024 12:0 0 PM JUNIOR PROGRAMMER ANALYST us Donovan Hayward MD LABORATORY Final Result Performing Organization Address [facility] Co de Phone Number [facility] [address] [place] [address], [phone] * Cytopath Cerv/Vag Thin Layer (06/07/2024 12:00 AM JUNIOR PROGRAMMER ANALYST) THIN PREP PAP [address] [address] Department of Pathology Pathology Report CERVICAL/VAGINAL PAP SMEAR REPORT Name: CECE ALFONSO Age: 1 2000 (Age: 23) Location: [facility] Sex: F Collected Date: 06/07/2024 Hospital #: [id number] Date Received: 06/08/2024 Date Reported: 06/13/2024 Provider: DONOVAN HAYWARD MD INTERPRETATION ABNORMAL RESULT CERVICAL/ENDOCERVI RYAN: SATISFACTORY FOR EVALUATION. ENDOCERVICAL/TRANS FORMATION ZONE COMPONENT PRESENT. LOW GRADE SQUAMOUS INTRAEPITHELIAL LESION. Initial cytologic [place] [address]. This case was interpreted and signed out at [facility], [address] [place] [address]. Electronically Signed Out NOEL Hinds MD (ASCP) [...] is not effective in detecting cervical adenocarcinoma. [facility] () [facility] 06/07/2024 06/08/2024 1:0 4 PM JUNIOR PROGRAMMER ANALYST Comment:CERVICAL/ENDOCERVICA L us Donovan Hayward MD PATHOLOGY/CYTOLOGY ORDERABLES F inal Result [facility] [address] [place] [address], from Last 3 Months or Most Recently Relevant to Health Maintenance Insurance [facility] GENERIC - COMMERCIAL [facility] Care Teams Hydrographer Relationship Specialty Start Date End Date Kaye Rob MD [address] [place] [phone] PCP - General INTERNAL MEDICINE 10/22/17
--- OUTSIDE RECORDS SUMMARY | 2024-10-29 18:27 | XMS_ITS | Data Portability ---
Author Organization [facility], [address] [facility] ([place]) Address [address] [place] [address] Assessment No assessment recorded. Plan of Treatment Reminders Order Date Submit Date Provider Last Modified By Organization Details Last Modified Time Details Appointments Establish ed Patient 15.EST 2024 02:30P M Aj Kent Not available Not available Not available Lab CMP, serum or plasma 2024 025 [facility], [address] [place] [address], [id number], 10/26/2024 18:01:14 Referral None recorded. Procedures None recorded. Surgeries None recorded. Imaging None recorded. Medication Orders None recorded. Patient TargetsNo targets recorded. Patient InstructionsNo instructions recorded. Reason for Referral None Reported. Results Created Date Observation Date Name Description Value Unit Range Abnormal Flag Note LastModifiedBy Organization Detail LastModifiedTime 09/29/1909/28/2024 hemog lobin A1C, finge rstic k fingerstick A1C endo Not Available [facility] [address] [place] [address], [id number], 09/28/2024 12:33:56 09/29/19 25 09/28/2024 hemog lobin A1C, finge rstic k hemoglobin A1C, finger 4.9 %_A1C 4.3 - 5.6 Not Available [facility] [address] [place] [address], [id number], 09/28/2024 12:33:56 09/29/19 25 09/28/2024 hemog lobin A1C, finge rstic k fingerstick estimated [address] Not Available [facility] [address] [place] [address], [address], 09/28/2024 12:33:56 Result Notes None recorded. Problems Name Problem SNOMED Code Status Onset Date Resolution Date Notes Provider Name and Address Organization Details Recorded Time Hypoglycemia 887744786 Active 2024 [facility] 5 16:19:10 Problem Notes None recorded. Medical Equipment None Reported. Allergies Allergen ID Allergen Name Allergen Category Reaction Reaction Severity Criticality Documentation Date Start Date Code Code System Note Provider Name and Address Organization Details Recorded Time 4399931 Substance with sulfonami de structure and antibacte rial mechanism of action (substanc e) medicatio n Not available Not available Not available 08/03/20232016 97906 8003 SNOMED Not Available Not Available Not Available Medications Name Sig Start Date Stop Date Status Note LastModified by Organization Details LastModified Time prazosin 1 mg capsule Take 1 capsule every day by oral route. active Not Available Not Available No t Available sertraline 25 mg tablet Take 1 tablet every day by oral route. active Not Available Not Available No t Available multivitamin active Not Available Not Available Not Available ProAir HFA 90 mcg/actuatio n aerosol inhaler Inhale 2 puffs every 4 hours by inhalation route. active Not Available Not Available No t Available Probiotic with Prebiotic active Not Available Not Available No t Available EluRyng 0.12 mg-0.015 mg/24 hr vaginal ring INSERT 1 RING VAGINALLY DIRECTED. REMOVE AFTER 3 WEEKS & WAIT 7 DAYS BEFORE INSERTING A NEW RING active Not Available Not Available No t Available Vitals Date Recorded Body height Body mass index (BMI) Body weight Heart rate Systolic blood pressure Diastolic blood pressure Provider Name and Address Organization Details Last Updated DateTime 5 162.56 cm 30.6 kg/m2 73062.4 4 g 72 /min 122 mm[Hg] 66 mm[Hg] [facility] 5 12:40:14 Social History None recorded. Functional Status None recorded. Mental Status None recorded. Family History Nothing Reported. Medical History No medical history recorded. Gynecological HistoryNo gynecological history recorded. Obstetrics History GPAL:G 0 P 0 0 0 0 Immunizations Vaccine Type Date Status Note Provider Nam e and Address Organization Details Recorded Time Hib-Hep B 9 completed Phoebe Windell null, [facility] 09/28/2024 12:40:21 Hib-Hep B 9 completed Phoebe Windell null, [facility] 09/28/2024 12:40:21 Hib-Hep B 0 completed Phoebe Windell null, [facility] 09/28/2024 12:40:21 IPV 9 completed Phoebe Windell null, [facility] 09/28/2024 12:40:21 IPV 9 completed Phoebe Windell null, [facility] 09/28/2024 12:40:21 IPV 0 completed Phoebe Windell null, [facility] 09/28/2024 12:40:21 IPV 4 completed Phoebe Windell null, [facility] 09/28/2024 12:40:21 MMR 0 completed Phoebe Windell null, [facility] 09/28/2024 12:40:21 MMR 4 completed Phoebe Windell null, [facility] 09/28/2024 12:40:21 COVID-19, mRNA, LNP-S, PF, 30 mcg/0.3 mL dose 1 completed Phoebe Windell null, [facility] 09/28/2024 12:40:21 COVID-19, mRNA, LNP-S, PF, 30 mcg/0.3 mL dose 1 completed Phoebe Windell null, [facility] 09/28/2024 12:40:21 COVID-19, mRNA, LNP-S, PF, 30 mcg/0.3 mL dose 0 [facility] 12:40:21 Tdap 8 completed Phoebe Windell null, [facility] 09/28/2024 12:40:21 Tdap 6 completed Phoebe Windell null, [facility] 09/28/2024 12:40:21 Tdap 3 completed Phoebe Windell null, [facility] 09/28/2024 12:40:21 Influenza, split virus, trivalent, preservative 7 completed Phoebe Windell null, [facility] 09/28/2024 12:40:21 Influenza, split virus, trivalent, PF 4 completed Phoebe Windell null, [facility] 09/28/2024 12:40:21 Hep B, adult 4 completed Phoebe Windell null, [facility] 09/28/2024 12:40:21 Hep B, adult 4 completed Phoebe Windell null, [facility] 09/28/2024 12:40:21 DTaP 9 completed Phoebe Windell null, [facility] 09/28/2024 12:40:21 DTaP 9 completed Phoebe Windell null, [facility] 09/28/2024 12:40:21 DTaP 0 completed Phoebe Windell null, [facility] 09/28/2024 12:40:21 DTaP 9 completed Phoebe Windell null, [facility] 09/28/2024 12:40:21 DTaP 4 completed Phoebe Windell null, [facility] 09/28/2024 12:40:21 Past Encounters Encounter ID Performer Location Encounter Start Date Encounter Closed Date Diagnosis/Indication Diagnosis SNOMED-CT Code Diagnosis ICD10 Code Diagnosis Note [id number] MD [facility] ([place]) [address] [place] [address] 09/28/2024 12:23:17 09/28/2024 13:03:41 Hypoglycemia 416191541 E16.2 See HPISymptom s x 6 years ever since with GDM. She did not require medication for glucose during / has never taken medication for diabetes. Hypoglycem ia worsened around a year ago, she cites documented glucose in the 40s with syncope.Sh e notes this would generally happen after food, especially high glycemic index foods like fruit. Rarely happened overnight but did have mild episodes from time to time. Hypoglycem ia has largely resolved the last 6 months ever since she started keto diet, but she is not sure this was sustainabl e. Her recent insulin levels were normal but no fasting glucose was drawn/rece ived. We reviewed differenti al diagnosis. Her pattern of postprandi al drops that resolved with ketogenic diet goes against insulinoma .We reviewed however that this cannot be excluded without 72 hour fast/labs drawn in the setting of low.We discussed setting this up, but we are going to hold off for now. We reviewed medication options.We are going to plan to start Acarbose pending normal CMP.Review ed how it works/pote ntial adverse effects.Wi ll need to cautiously reintroduc es carbs/make sure to tie with protein/ke ep low glycemic index. Sertraline has a rare adverse effect profile of causing hypoglycem ia. This has been reduced with no change and even stopped briefly with no change and is likely no the culrpit. She denies multivitam in but does take a probiotic which we will ask more details about when we get CMP results. She has glucagon at home and a CGM.We reviewed pitfalls of CGM and that glucose in the 60s can be normal for a health 24 year old in the absence of symptoms. We reviewed when to double check with accuchek device which she also has. Will follow up on pending cortisol. Follow up with me in 8 weeks. Health Concerns Section Related Observation LastModified by Organization Detai ls LastModified Time None Recorded Concern Status LastModified by Organization Details LastModified Time None Recorded Advance Directives Directive None Recorded Payers Encounter Date Sequence Insurance Name Policy Number Policy Berrios Covered Member ID Berrios Member ID Guarantor Name 09/28/2024 1 [facility] [id number] Cece Alfonso [id number] Cece Alfonso 09/28/2024 2 [place] [employer] Cece Alfonso [id number] Cece Alfonso Notes Date Note Type Note Provider Name and Address Organization Details Recorded Time 09/28/2024 text/html Ms. Alfonso is a pleasant 24 year old female here for endocrine consultation regarding hypoglycemia. She reports a 6 year history of hypoglycemia.She had GDM with her son who is almost 7. She did not need medication, but after delivery she started having hypoglycemia.This has been on/off but worsened around a year ago.I do not have immediate records but she reports she has lost consciousness/gluco se had been 48. Hemoglobin A1c as 4.7% in June 2024.Insulin level in September 2023 was 118 however the corresponding glucose from 09/24 if reporting is correct was 109.TSH levels have been drawn annually the last few years and were normal. August 2024 TSH was 1.August c-peptide 2.41, insulin of 7.5, TSH 1.45. I do not see a corresponding blood glucose level She has worn a CGM that showed 97% of readings at target3% of time below target. No significant hypoglycemia, usually in the 60-70 rangeShe notes almost no hypoglycemia x the last 6 months but has gone almost completely keto. BMI is >30.Her weight has been progressively increasing the last couple years. However she also goes to the gym and has a good amount of muscle mass, not a lot of central obesity. [facility] [address] [place] [address], [phone], [place] [facility] 09/28/2024 14:47:10 OBGyn Episode No OBEpisode recorded.
--- OUTSIDE RECORDS SUMMARY | 2024-10-29 18:27 | XMS_ITS | Encounter Summary ---
Author Organization [facility] Address [address] [place] [address] Care Team Providers Care Enrichment Specialist Name Role Phone Kaye Rob MD Primary Care Provider [phone] Encounter Details Date Type Department Care Team (Late st Contact Info) Description 12/09/2018 Abstract SFL CONVERSION [address] [place] [address] , Generic Conversion, Social History Tobacco Use Types Packs/Day Years Used Date Smoking Tobacco: Never Smokeless Tobacco: Never Alcohol Use Standard Drinks/Week Comments No 0 (1 standard drink = 0.6 oz pur e alcohol) Comments No Sex and Gender Information Value Date Recorded Sex Assigned at Not on file 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
--- OUTSIDE RECORDS SUMMARY | 2024-10-29 18:27 | XMS_ITS | Clinical Summary ---
Author Organization [facility] Address [address] [address] Phone Care Team Providers Care Cage Tender Name Role Phone Unavailable Primary Care Provider [...] of 3 - 19+ 3-dose series) 2017 SARS-COV-2 Immunization ( - 2023- season) 2024 Influenza Immunization ([place] on Ended) 2025 Respiratory Syncytial Virus (RSV) Immunization (Adult) (1 [...]
== END 2024-10-29 16:47 | disposition home or self-care (01) ==
LOC: CHSLAB 16:47
PROVIDERS: PCP Family Medicine; Visit Provider Nurse Practitioner Family
DX: L08.9 Local infection of the skin and subcutaneous tissue, unspecified (principal)
CPT/HCPCS: 87070; 87075; 87205

== ENCOUNTER 2024-11-29 14:28 | Outpatient (NON) | payer OTHER, SELFPAY ==
--- OUTSIDE RECORDS SUMMARY | 2024-11-29 14:33 | XMS_ITS | Clinical Summary ---
Author Organization [facility] Address [address] [address] Phone Care Team Providers Care Weather Teacher Name Role Phone Unavailable Primary Care Provider [...]
--- OUTSIDE RECORDS SUMMARY | 2024-11-29 14:33 | XMS_ITS | Data Portability ---
Author Organization [facility], [address] [facility] ([place]) Address [address] [place] [address] Assessment No assessment recorded. Plan of Treatment Reminders Order Date Submit Date Provider Last Modified By Organization Details Last Modified Time Details Appointments Establish ed Patient 15.EST 2024 02:30P M Aj Kent Not available Not available Not available Lab CMP, serum or plasma 2024 025 [facility], [address] [place] [address], [id number], 11/23/2024 20:55:22 Referral None recorded. Procedures None recorded. Surgeries None recorded. Imaging None recorded. Medication Orders None recorded. Patient TargetsNo targets recorded. Patient InstructionsNo instructions recorded. Reason for Referral None Reported. Results Created Date Observation Date Name Description Value Unit Range Abnormal Flag Note LastModifiedBy Organization Detail LastModifiedTime 09/29/1909/28/2024 hemog lobin A1C, finge rstic k fingerstick A1C endo Not Available [facility] [address] [place] [address], [address], 09/28/2024 12:33:56 09/29/19 25 09/28/2024 hemog lobin A1C, finge rstic k hemoglobin A1C, finger 4.9 %_A1C 4.3 - 5.6 Not Available [facility] [address] [place] [address], [id number], 09/28/2024 12:33:56 09/29/19 25 09/28/2024 hemog lobin A1C, finge rstic k fingerstick estimated [address] Not Available [facility] [address], [address], 09/28/2024 12:33:56 Result Notes None recorded. Problems Name Problem SNOMED Code Status Onset Date Resolution Date Notes Provider Name and Address Organization Details Recorded Time Hypoglycemia 475853693 Active 2024 [facility] 5 16:19:10 Problem Notes None recorded. Medical Equipment None Reported. Allergies Allergen ID Allergen Name Allergen Category Reaction Reaction Severity Criticality Documentation Date Start Date Code Code System Note Provider Name and Address Organization Details Recorded Time 4052643 Substance with sulfonami de structure and antibacte rial mechanism of action (substanc e) medicatio n Not available Not available Not available 08/03/20232016 07798 8003 SNOMED Not Available [facility] 04:[facility]:38 Medications Name Sig Start Date Stop Date [...] Updated DateTime 5 162.56 cm 30.6 kg/m2 20541.4 4 g 72 /min 122 mm[Hg] 66 mm[Hg] [facility] 5 12:40:14 Social History None recorded. Functional Status None recorded. Mental Status None recorded. Family History Nothing Reported. Medical History No medical history recorded. Gynecological HistoryNo gynecological history recorded. Obstetrics History GPAL:G 0 P 0 0 0 0 Immunizations Vaccine Type Date Status Note Provider Nam e and Address Organization Details Recorded Time Hib-Hep B 9 completed Phoebe Windell null, [facility] 09/28/2024 12:40:21 Hib-Hep B 9 completed Phoebe Windell null, [facility] 09/28/2024 12:40:21 Hib-Hep B 0 completed Phoebe Windell null, [facility] 09/28/2024 12:40:21 IPV 9 completed Phoebe Windell null, [facility] 09/28/2024 12:40:21 IPV 9 completed Phoebe Windell null, [facility] 09/28/2024 12:40:21 [facility] 12:40:21 [facility]V 4 [facility] 09/28[facility]24 12:40:21 [facility] 0 [facility] 09/28[facility]2024 12:40:21 MMR 4 [facility] 09/28/2024 12:40:21 COVID-19, mRNA, LNP-S, PF, 30 mcg/0.3 mL dose 1 [facility] 09/28/2024 12:40:21 COVID-19, mRNA, LNP-S, PF, 30 mcg/0.3 mL dose 1 completed [facility] 09/28/2024 12:40:21 COVID-19, mRNA, LNP-S, PF, 30 mcg/0.3 mL dose 0 completed [facility] 09/28/2024 12:40:21 Tdap 8 completed Phoebe Windell null, [facility] 09/28/2024 12:40:21 Tdap 6 completed Phoebe Windell null, [facility] 09/28/2024 12:40:21 Tdap 3 completed Phoebe Windell null, [facility] 09/28/2024 12:40:21 Influenza, split virus, trivalent, preservative 7 completed Phoebe Windell null, [facility] 09/28/2024 12:40:21 Influenza, split virus, trivalent, PF 4 completed Phoebe Windell null, [facility] 09/28/2024 12:40:21 Hep B, adult 4 completed Phoebe Windell null, [facility] 09/28/2024 12:40:21 Hep B, adult 4 completed Phoebe Windell null, [facility] 09/28/2024 12:40:21 DTaP 9 completed Phoebe Windell null, [facility] 09/28/2024 12:40:21 DTaP 9 completed Phoebe Windell null, [facility] 09/28/2024 12:40:21 DTaP 0 completed Phoebe Windell null, [facility] 09/28/2024 12:40:21 DTaP 9 completed Phoebe Windell null, [facility] 09/28/2024 12:40:21 DTaP 4 completed Phoebe Windell null, [facility] 09/28/2024 12:40:21 Past Encounters Encounter ID Performer Location Encounter Start Date Encounter Closed Date Diagnosis/Indication Diagnosis SNOMED-CT Code Diagnosis ICD10 Code Diagnosis Note [id number] Aj Kent PA-C [facility] [address] [place] [address] 09/28/2024 12:23:17 09/28/2024 13:03:41 Hypoglycemia 626790705 E16.2 See HPISymptom s x 6 years [...] Concerns Section Related Observation LastModified by Organization Cade ls LastModified Time None Recorded Concern Status LastModified by Organization Details LastModified Time None Recorded Advance Directives Directive None Recorded Payers Insurance Date Sequence Insurance Name Policy Number Policy Berrios Covered Member ID Berrios Member ID Guarantor Name 10/12/2024 2 [place] [employer] Cece Alfonso [id number] Cece Alfonso 10/26/2024 1 [facility] [id number] Cece Alfonso [id number] Cece Alfonso Notes Date Note Type Note [...] mass, not a lot of central obesity. Aj Kent PA-C [address] [facility], [place], [address], [place] [facility] 09/28/2024 14:47:10 OBGyn Episode No OBEpisode recorded.
== END 2024-11-29 14:29 | disposition home or self-care (01) ==
LOC: CHSLAB 14:30
PROVIDERS: PCP Family Medicine; Visit Provider Family Medicine
DX: R35.0 Frequency of micturition (principal)
CPT/HCPCS: 87086; 87088

== ENCOUNTER 2024-12-14 08:06 | Outpatient (CLI) | payer OTHER, SELFPAY ==
--- OUTSIDE RECORDS SUMMARY | 2024-12-14 08:10 | XMS_ITS | Clinical Summary ---
Author Organization [facility] Address [address] [address] Phone Care Team Providers Care Dance Critic Name Role Phone Unavailable Primary Care Provider [...]
--- OUTSIDE RECORDS SUMMARY | 2024-12-14 08:10 | XMS_ITS | Data Portability ---
Author Organization [facility], [address] [facility] Neurology ([place]) Address [address] [place] [address] Assessment No assessment recorded. Plan of Treatment Reminders Order Date Submit Date Provider Last Modified By Organization Details Last Modified Time Details Appointments None recorded . Lab CMP, serum or plasma 025 09/29/19 25 PORTAL Tx Only - Tx Laboratory, [address] [place] [address], [id number], 20:45:27 Referral None recorded . Procedures None recorded . Surgeries None recorded . Imaging None recorded . Medication Orders None recorded . Patient TargetsNo targets recorded. Patient InstructionsNo instructions recorded. Reason for Referral None Reported. Results Created Date Observation Date Name Description Value Unit Range Abnormal Flag Note LastModifiedBy Organization Detail LastModifiedTime 09/29/1909/28/2024 hemog lobin A1C, finge rstic k fingerstick A1C endo Not Available Tx Onl y - [facility] [address] [place] [address], [id number], 09/28/2024 12:33:56 09/29/19 25 09/28/2024 hemog lobin A1C, finge rstic k hemoglobin A1C, finger 4.9 %_A1C 4.3 - 5.6 Not Available Tx Only - T[facility] Laboratory [address] [place] [address], [id number], 09/28/2024 12:33:56 09/29/19 25 09/28/2024 hemog lobin A1C, finge rstic k fingerstick estimated ave [address] Not Available Tx Onl y - [facility] [address] [place] [address], [id number], 09/28/2024 12:33:56 Result Notes None recorded. Problems Name Problem SNOMED Code Status Onset Date Resolution Date Notes Provider Name and Address Organization Details Recorded Time Hypoglycemia 285148153 Active 2024 Dorothy Villafana [facility] 5 16:19:10 Problem Notes None recorded. Medical Equipment None Reported. Allergies Allergen ID Allergen Name Allergen Category Reaction Reaction Severity Criticality Documentation Date Start Date Code Code System Note Provider Name and Address Organization Details Recorded Time 0772354 Substance with sulfonami de structure and antibacte rial mechanism of action (substanc e) medicatio n Not available Not available Not available 08/03/20232016 65597 8003 SNOMED Not Available [facility] 4 04:38:38 Medications Name Sig Start Date Stop Date Status Note LastModified by Organization Details LastModified Time fluconazole 150 mg tablet 150 MG ORALLY ONCE A SINGLE DOSE active Not Available Not Available No t Available prazosin 1 mg capsule 1 MG ORALLY EVERY DAY AT BEDTIME active Not Available Not Available No t Available sertraline 25 mg tablet TAKE 1 TABLET BY MOUTH EVERY DAY active Not Available Not Available No t Available mupirocin 2 % topical ointment APPLY TOPICALLY TWICE A DAY FOR 2 WEEKS 12/10 completed Not Available Not Available Not Available ondansetron 4 mg disintegrat ing tablet TAKE 1 TABLET BY MOUTH EVERY 8 HOURS active Not Available Not Available No t Available nitrofurant oin monohydrate /macrocryst als 100 mg capsule TAKE 1 CAPSULE BY MOUTH TWICE A DAY WITH MEAL/FOOD 12/10 completed Not Available Not Available Not Available multivitami n active Not Available Not Available Not Available ProAir HFA 90 mcg/actuati on aerosol inhaler Inhale 2 puffs every 4 hours by inhalatio n route. active Not Available Not Available No t Available Probiotic with Prebiotic active Not Available Not Available No t Available EluRyng 0.12 mg-0.015 mg/24 hr vaginal ring INSERT 1 RING DIRECTED. active Not Available Not Available No t Available Nurtec ODT 75 mg disintegrat ing tablet TAKE 1 TABLET BY MOUTH EVERY 48 HOURS NEEDED FOR MIGRAINE HEADACHE A SINGLE DOSE active Not Available Not Available No t Available Vitals Date Recorded Body height Body mass index (BMI) Body weight Heart rate Systolic blood pressure Diastolic blood pressure Provider Name and Address Organization Details Last Updated DateTime 5 162.56 cm 30.6 kg/m2 39529.4 4 g 72 /min 122 mm[Hg] 66 mm[Hg] Phoebe Windell [facility] 5 12:40:14 Social History None recorded. Functional Status None recorded. Mental Status None recorded. Family History Nothing Reported. Medical History No medical history recorded. Gynecological HistoryNo gynecological history recorded. Obstetrics History GPAL:G 0 P 0 0 0 0 Immunizations Vaccine Type Date Status Note Provider Nam e and Address Organization Details Recorded Time Hib-Hep B 9 completed [facility] 12:40:21 Hib-Hep B 9 completed [facility]2024 12:40:21 Hib-Hep B 0 completed [facility] 09/28/2024 12:40:21 IPV 9 completed [facility] 09/28/2024 12:40:21 IPV 9 completed [facility] 09/28/2024 12:40:21 IPV 0 completed [facility] 09/28/2024 12:40:21 IPV 4 completed [facility] 09/28/2024 12:40:21 MMR 0 completed [facility] 09/28/2024 12:40:21 MMR 4 completed [facility] 09/28/2024 12:40:21 COVID-19, mRNA, LNP-S, PF, 30 mcg/0.3 mL dose 1 completed [facility]/28/2024 12:40:21 COVID-19, mRNA, LNP-S, PF, 30 mcg/0.3 mL dose 1 completed Phoebe Windell null, [facility] 09/28/2024 12:40:21 COVID-19, mRNA, LNP-S, PF, 30 mcg/0.3 mL dose 0 completed Phoebe Windell null, [facility] 09/28/2024 12:40:21 Tdap 8 completed Phoebe Windell null, [facility] 09/28/2024 12:40:21 Tdap 6 completed Phoebe Windell null, [facility] 09/28/2024 12:40:21 Tdap 3 completed Phoebe Windell null, [facility] 09/28/2024 12:40:21 Influenza, split virus, trivalent, preservative 7 completed Phoebe Windell null, [facility] 09/28/2024 12:40:21 Influenza, split virus, trivalent, PF 4 completed Phoebe Windell null, [facility] 09/28/2024 12:40:21 Hep B, adult 4 completed Phoebe Windell null, [facility] 09/28/2024 12:40:21 Hep B, adult 4 completed Phoebe Windell null, [facility] 09/28/2024 12:40:21 DTaP 9 completed Phoebe Windell null, [facility] 09/28/2024 12:40:21 DTaP 9 completed Phoebe Windell null, [facility] 09/28/2024 12:40:21 DTaP 0 completed Phoebe Windell null, [facility] 09/28/2024 12:40:21 DTaP 9 completed Phoebe Windell null, [facility] 09/28/2024 12:40:21 DTaP 200 4 completed [facility] 09/28/2024 12:40:21 Past Encounters Encounter ID Performer Location Encounter Start Date Encounter Closed Date Diagnosis/Indication Diagnosis SNOMED-CT Code Diagnosis ICD10 Code Diagnosis Note [id number] BHARAT Joenter Endocrino logy (MD) [address] [place] [address] 09/28/2024 12:23:17 09/28/2024 13:03:41 Hypoglycemia 353326992 E16.2 See HPISymptom s x 6 years ever since with GDM. She did not require medication for glucose during / has never taken medication for diabetes. Hypoglycem ia worsened around a year ago, she cites documented glucose in the 40s with syncope.Sh katheryn notes this would generally happen after food, [...] Member ID Berrios Member ID Guarantor Name 12/08/2024 2 MEDICAID-[place]: [facility] Cece Alfonso [id number] Cece Alfonso 12/08/2024 1 [facility] [id number] Cece Alfonso [id number] Cece Alfonso Notes Date Note Type Note [...] mass, not a lot of central obesity. [facility] [address] , [place], [address], [facility] 09/28/2024 14:47:10 OBGyn Episode No OBEpisode recorded.
[2024-12-14 08:26] LABS: Basophils Absolute Auto 0.04 K/mm3 (0.00-0.10); Basophils Percent Auto 0.6 % (0.0-1.0); Eosinophils Absolute Auto 0.25 K/mm3 (0.02-0.50); Hematocrit 39.5 % (35.0-49.0); Immature Granulocyte Absolute 0.02 K/mm3 (0.00-0.00); Immature Granulocyte Percent A 0.3 % (0.0-0.0); Lymphocytes Absolute Auto 1.99 K/mm3 (1.10-4.50); Lymphocytes Percent Auto 31.6 % (18.0-42.0); Mean Corpuscular HGB Conc 32.9 g/dL (32-36); Mean Corpuscular Volume 85.1 fL (78.0-102.0); Mean Platelet Volume 9.5 fl (9.2-11.8); Monocytes Absolute Auto 0.42 K/mm3 (0.10-0.90); Monocytes Percent Auto 6.7 % (2.0-11.0); Neutrophils Absolute Auto 3.58 K/mm3 (1.70-7.20); Neutrophils Percent Auto 56.8 % (50.0-70.0); Platelet Count Result 272 K/mm3 (150-420); Red Blood Count 4.64 M/mm3 (4.20-5.40); Red Cell Distribution Width 13.5 % (11.6-14.4); White Blood Count 6.3 K/mm3 (4.8-10.8)
[2024-12-14 08:34] LABS: INR 0.9; Prothrombin Time 10.4 Seconds (9.50-12.1)
[2024-12-14 08:46] LABS: Alanine Aminotransferase 16 U/L (6-35); Albumin Level 4.3 g/dL (3.5-5.1); Alkaline Phosphatase 62 U/L (38-126); Anion Gap 6 mmol/L (4-12); Aspartate Amino Transferase 20 U/L (14-36); Bilirubin,Total 0.6 mg/dL (0.2-1.3); Blood Urea Nitrogen 11 mg/dL (7-17); Calcium 9.1 mg/dL (8.4-10.2); Carbon Dioxide 23 mmol/L (22-30); Chloride 110 mmol/L (98-107); Estimated Glomerular Filt Rate > 60; Glucose 96 mg/dL (65-110); Iron 70 ug/dL (37-170); Osmolality Calculated 287 mOsm/kg (285-295); Potassium 4.3 mmol/L (3.4-5.0); Sodium 139 mmol/L (137-145)
[2024-12-14 08:55] LABS: Percent Iron Saturation 20 % (20-50)
[2024-12-14 16:27] LABS: SPREG INTERNAL CONTROL Positive; Serum Qual hCG Negative
== END 2024-12-14 08:07 | disposition home or self-care (01) ==
LOC: CHSLAB 08:06
PROVIDERS: Nurse Practitioner Family; PCP Family Medicine; Visit Provider Family Medicine
DX: D64.9 Anemia, unspecified (principal); N92.1 Excessive and frequent menstruation with irregular cycle; D50.9 Iron deficiency anemia, unspecified; R10.9 Unspecified abdominal pain
CPT/HCPCS: 36415; 80053; 82728; 83540; 83550; 84703; 85025; 85610

== ENCOUNTER 2024-12-14 13:19 | Outpatient (CLI) | payer OTHER, SELFPAY ==
--- NOTE | ~2024-12-14 | US_ITS ---
EXAMINATION: US transvaginal INDICATION: Excessive and frequent menstruation. Comparison:No prior studies for comparison. TECHNIQUE: Multiple transabdominal and endovaginal sonographic images of the pelvis performed. FINDINGS: The uterus measures 7.7 x 5.1 x 3.6 cm. The endometrial complex measures 4 mm. There is flu id in the endometrium. There is polypoid soft tissue in the endometrium, suspicious for polyp. The right ovary measures 3.4 x 2 x 2.3 cm and the left ovary measures 2.6 x 2.3 x 1.8 cm. There are small follicles in each ovary. Normal doppler signal in both ovaries. There is no free fluid in the pelvis. There are no abnormal masses seen on either side. IMPRESSION: 1. Possible endometrial polyp. Trace fluid in the endometrium. Reviewed, dictated and finalized at location B.
== END 2024-12-14 13:20 | disposition home or self-care (01) ==
LOC: CHSIMG 13:19
PROVIDERS: PCP Family Medicine; Visit Provider Family Medicine
DX: N92.1 Excessive and frequent menstruation with irregular cycle (principal)
CPT/HCPCS: 76830

== ENCOUNTER 2024-12-31 10:46 | Outpatient (NON) | payer OTHER, SELFPAY ==
[2024-12-31 12:00] LABS: Add Urine Microscopic? YES; Appearance Urine Clear (Clear); Bilirubin Urine Negative (Negative); Blood Urine 2+ (Negative); Color Urine Light Yellow (Yellow); Glucose Urine UA Negative (Negative); Ketones Urine Negative (Negative); Leukocyte Esterase Ur 1+ LEU/UL (Negative); Nitrate Urine Negative (Negative); Protein Urine Negative (Negative); Specific Grav Ur <= 1.005 (1.010-1.020); Urobilinogen Urine 0.2 mg/dL (0.2-1.0); pH Urine 6.5 (5.0-8.0)
[2024-12-31 12:13] LABS: Bacteria Urine 1+ /hpf; Squamous Epithelial Cell Urine Few /hpf (Few)
[2025-01-02 08:00] LABS: Trichomonas Vag PCR NOT DETECTED (NOT DETECTE)
[2025-01-02 08:22] LABS: Chlamydia trachomatis NOT DETECTED (NOT DETECTE); Neisseria gonorrhoeae PCR NOT DETECTED (NOT DETECTE)
[2025-01-02 10:34] LABS: Bacterial Vaginosis POSITIVE (NEGATIVE)
== END 2024-12-31 10:47 | disposition home or self-care (01) ==
LOC: CHSLAB 10:47
PROVIDERS: Visit Provider Nurse Practitioner Family
DX: N89.8 Other specified noninflammatory disorders of vagina (principal); Z87.898 Personal history of other specified conditions; Z11.3 Encounter for screening for infections with a predominantly sexual mode of transmission
CPT/HCPCS: 81001; 81513; 87070; 87086; 87491; 87591; 87661

== ENCOUNTER 2025-01-28 14:41 | Outpatient (CLI) | payer OTHER, SELFPAY ==
--- NOTE | ~2025-01-28 | CT_ITS ---
EXAMINATION: CT brain wo con DATE: 01/28/2025 14:57 INDICATION: Z87.828 - Personal history of other (healed) physical inj... . TECHNIQUE: Computed tomography (CT) of the head was performed without intravenous contrast. The mA wa s adjusted according to patient size. Iterative reconstruction technique was employed. The dose-lengt h product was 681.00 mGy-cm. COMPARISON: 05/13/2024; MR brain 03/18/2021. FINDINGS: No acute intracranial hemorrhage or extra-axial fluid collection. No hydrocephalus, mass, or herniation. No acute ischemic infarct. Unremarkable dural venous sinus attenuation. No acute osseous abnormality. The aerated spaces are clear. IMPRESSION: No acute intracranial process. Reviewed, dictated and finalized at location K.
--- OUTSIDE RECORDS SUMMARY | 2025-01-28 14:44 | XMS_ITS | Clinical Summary ---
Author Organization [facility] Address [address] [address] Phone Care Team Providers Care Radiator Tester Name Role Phone Unavailable Primary Care Provider [...] ( - 2023- season) 2024 Influenza Immunization (#1) 2025 Respiratory Syncytial Virus (RSV) Immunization (Adult) [...]
--- OUTSIDE RECORDS SUMMARY | 2025-01-28 14:44 | XMS_ITS | Encounter Summary ---
Author Organization [facility] Address [address] [place] [address] Care Team Providers Care Kettle Girl Name Role Phone Kaye Rob MD Primary Care Provider [phone] Encounter Details Date Type Department Care Team (Late st Contact Info) Description 12/09/2018 Abstract SFL CONVERSION [address] [address] , Generic Conversion, Social History Tobacco Use Types Packs/Day Years Used Date Smoking Tobacco: Never Smokeless Tobacco: Never Alcohol Use Standard Drinks/Week Comments No 0 (1 standard drink = 0.6 oz pur e alcohol) Comments No Sex and Gender Information Value Date Recorded Sex Assigned at Not on file Legal Sex Female 9:55 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
--- OUTSIDE RECORDS SUMMARY | 2025-01-28 14:44 | XMS_ITS | Clinical Summary ---
Author Organization [facility] Address [address] [place] [address] Care Team Providers Care Gunstock Repairer Name Role Phone Kaye Rob MD Primary Care Provider Allergies Active Allergy Reactions Criticality Noted Date Comments Sulfa Antibiotics Rash Low 10/22/2017 Medications ondansetron (ZOFRAN-ODT) 4 MG disintegrating tablet Take 1 tablet (4 mg total) by mouth every 8 (eight) hours as needed for Nausea. 20 tablet 3 Active Active Problems Problem Noted Date Diagnosed Date ([facility]) 11/08/2017 Threatened labor ([facility]) 10/22/2017 Family History Medical History Relation Comments [...] on file Legal Sex Female 9:55 PM SUPERVISOR [employer]ACH[employer]UFA[employer]UR[employer] Gender Identity Not on file Sexual Orientation [...] 2:50 PM CDT Height 165.1 cm (5' 5) 12/28/2022 2:50 PM CDT Body Mass Index 28.85 12/28/2022 2:50 PM CDT Plan of Treatment Health Maintenance Due Date Last Done Comments Annual Physical 2001 HPV Vaccines (1 - 3-dose series) 2013 COVID-19 Vaccine ( season) 2024 05/26/2021, 07/21/2020, 07/01/2020 PHQ-2 (Physician [place]) 07/04/2024 Cervical Cancer Screening Pap Smear (Age [...] GC RNA Routine 06/07/2024 12:0 0 PM SUPERVISOR [employer] Other specified noninflammatory disorders of vagina HEPATITIS C ANTIBODY Routine 06/07/2024 12:00 PM SUPERVISOR [employer]UR[employer] Encounter for screening for infections with a predominantly sexual mode of transmission CYTOPATH CERV/VAG THIN LAYER Routine 06/07/2024 12:00 AM SUPERVISOR [employer]ACH[employer]UFA[employer]URING from Last 3 Months or Most Recently Relevant to Health Maintenance Results * CHLAMYDIA GC RNA (06/07/2024 12:00 PM SUPERVISOR [employer]ACH[employer]UFA[employer]URING) SPECIMEN CERVICAL 06/07/2024 2:14 PM SUPERVISOR PARACHUTE MANUFACTURING [facility] CHLAMYDIA RNA TMA NEGATIVE NEGATIVE 024 3:39 PM SUPERVISOR PARACHUTE MANUFACTURING [facility] Comment:PERFORMED BY NUCLEIC ACID AMPLIFICATION N.GONORRHOEAE RNA TMA NEGATIVE NEGATIVE 06/08/2024 3:39 PM SUPERVISOR [employer]ACHUTE [employer]UFACTURING [facility] Comment:PERFORMED BY NUCLEIC ACID AMPLIFICATION CERVICAL 06/07/2024 12:0 0 PM SUPERVISOR [employer]ACH[employer]UFACTURING us Donovan Hayward MD MICROBIOLOGY - GENERAL ORDERABL ES Final Result Performing Organization Address [facility] Co de Phone Number [facility] [address] [place] [address], [facility] [address] [place] [address], [phone] * HEPATITIS C ANTIBODY (06/07/2024 12:00 PM SUPERVISOR [employer]URING) HEPATITIS C AB NON-REACTI VE NON-REACT HUNG 06/07/2024 6:51 PM SUPERVISOR PARACHUTE MANUFACTURING [facility] Comment: ANTIBODIES TO HCV NOT DETECTED. DOES NOT EXCLUDE THE POSSIBILITY OF EXPOSURE TO HCV. 06/07/2024 12:0 0 PM SUPERVISOR [employer]UR[employer] us Donovan Hayward MD LABORATORY Final Result Performing Organization Address [facility] Co de Phone Number [facility] [address] [place] [address], [phone] * Cytopath Cerv/Vag Thin Layer (06/07/2024 12:00 AM SUPERVISOR [employer]URING) THIN PREP PAP [address] [address] Department of Pathology Pathology Report CERVICAL/VAGINAL PAP SMEAR REPORT Name: CECE ALFONSO Age: 1 2000 (Age: 23) Location: [facility] Sex: F Collected Date: 06/07/2024 Hospital #: [id number] Date Received: 06/08/2024 Date Reported: 06/13/2024 Provider: DONOVAN HAYWARD MD INTERPRETATION ABNORMAL RESULT CERVICAL/ENDOCERVI RYAN: SATISFACTORY FOR EVALUATION. ENDOCERVICAL/TRANS FORMATION ZONE COMPONENT PRESENT. LOW GRADE SQUAMOUS INTRAEPITHELIAL LESION. Initial cytologic [place] [address]. This case was interpreted and signed out at [facility], [address] [place] [address]. Electronically Signed Out NOEL Hinds MD (ASCP) [...] is not effective in detecting cervical adenocarcinoma. [facility] 06/07/2024 06/08/2024 1:0 4 PM SUPERVISOR [employer] Comment:CERVICAL/ENDOCERVICA L us Donovan Hayward MD PATHOLOGY/CYTOLOGY ORDERABLES F inal Result [facility] ([facility] [address] [place] [address], from Last 3 Months or Most Recently Relevant to Health Maintenance Insurance [facility] GENERIC - COMMERCIAL [facility] Care Teams Gunstock Repairer Relationship Specialty Start Date End Date Kaye Rob MD [address] [phone] PCP - General INTERNAL MEDICINE 10/22/17
== END 2025-01-28 14:42 | disposition home or self-care (01) ==
LOC: CHSIMG 14:42
PROVIDERS: PCP Family Medicine; Visit Provider Family Medicine
DX: R41.3 Other amnesia (principal); Z87.828 Personal history of other (healed) physical injury and trauma
CPT/HCPCS: 70450

== ENCOUNTER 2025-02-25 08:09 | Outpatient (CLI) | payer OTHER, SELFPAY ==
--- OUTSIDE RECORDS SUMMARY | 2025-02-25 08:16 | XMS_ITS | Clinical Summary ---
Author Organization [facility] Address [address] [address] Phone Care Team Providers Care Private Branch Exchange Repairer Name Role Phone Unavailable Primary Care Provider [...] 3-dose series) 2017 SARS-COV-2 Immunization ( - season) 2024 Influenza Immunization (#1) 2025 Respiratory [...]
[2025-02-25 09:44] LABS: Beta HCG Quantitative 46.81 mIU/ML
== END 2025-02-25 08:10 | disposition home or self-care (01) ==
LOC: CHSLAB 08:10
PROVIDERS: PCP Family Medicine; Visit Provider Family Medicine
DX: N92.6 Irregular menstruation, unspecified (principal)
CPT/HCPCS: 36415; 84702

== ENCOUNTER 2025-02-27 12:52 | Outpatient (CLI) | payer OTHER, SELFPAY ==
--- NOTE | ~2025-02-27 | US_ITS ---
EXAMINATION: US OB <=14 wk fetus w TV INDICATION: Gestational dating. Comparison:No prior studies for comparison. TECHNIQUE: Multiple transabdominal and endovaginal sonographic images of the pelvis performed. FINDINGS: The uterus measures 8.3 x 5.8 x 4.2 cm. The endometrial complex measures 11 mm. No intrauterine gestational sac, pole or yolk sac. The right ovary measures 2.6 x 2 x 3 cm and the left ovary measures 2.7 x 1.2 x 2.1 cm. There are small follicles in each ovary. Normal doppler signal in both ovaries. There is no free fluid in the pelvis. There are no abnormal masses seen on either side. IMPRESSION: 1. Unremarkable pelvic ultrasound. No evidence for gestational sac or pole. Differential diagnosis includes very early intrauterine , ectopic and failed . Recommend follow-up with quantitative beta-hCG levels and ultrasound as clinically warranted. Reviewed, dictated and finalized at location O. IMPRESSION: 1. Unremarkable pelvic ultrasound. No evidence for gestational sac or maribel e. Differential diagnosis includes very early intrauterine , ectopic p regnancy and failed . Recommend follow-up with quantitative beta-hCG l evels and ultrasound as clinically warranted.
--- OUTSIDE RECORDS SUMMARY | 2025-02-27 13:03 | XMS_ITS | Clinical Summary ---
Author Organization [facility] Address [address] [address] Phone Care Team Providers Care Correction Officer Reformatory Name Role Phone Unavailable Primary Care Provider [...]
--- OUTSIDE RECORDS SUMMARY | 2025-02-27 13:03 | XMS_ITS | Clinical Summary ---
Author Organization [facility] Address [address] [place] [address] Care Team Providers Care Development Trainer Name Role Phone Kaye Rob MD Primary Care Provider [phone] Allergies Active Allergy Reactions Criticality Noted Date Comments Sulfa Antibiotics Rash Low 10/22/2017 Medications ondansetron (ZOFRAN-ODT) 4 MG disintegrating tablet Take 1 tablet (4 mg total) by mouth every 8 (eight) hours as needed for Nausea. 20 tablet 3 Active Active Problems Problem Noted Date Diagnosed Date ([facility]) 11/08/2017 Threatened labor ([facility]) 10/22/2017 Family History Medical History Relation [...] on file Legal Sex Female 9:55 PM LEHR TENDER Gender Identity Not on file Sexual Orientation [...] season) 2024 05/26/2021, 07/21/2020, 07/01/2020 PHQ-2 (Physician [place]) 07/04/2024 Cervical Cancer Screening Pap Smear (Age [...] GC RNA Routine 06/07/2024 12:0 0 PM LEHR TENDER Other specified noninflammatory disorders of vagina HEPATITIS C ANTIBODY Routine 06/07/2024 12:00 PM LEHR TENDER Encounter for screening for infections with a predominantly sexual mode of transmission CYTOPATH CERV/VAG THIN LAYER Routine 06/07/2024 12:00 AM LEHR TENDER from Last 3 Months or Most Recently Relevant to Health Maintenance Results * CHLAMYDIA GC RNA (06/07/2024 12:00 PM LEHR TENDER) SPECIMEN CERVICAL 06/07/2024 2:14 PM LEHR TENDER [facility] CHLAMYDIA RNA TMA NEGATIVE NEGATIVE 024 3:39 PM LEHR TENDER [facility] Comment:PERFORMED BY NUCLEIC ACID AMPLIFICATION N.GONORRHOEAE RNA TMA NEGATIVE NEGATIVE 06/08/2024 3:39 PM LEHR TENDER [facility] Comment:PERFORMED BY NUCLEIC ACID AMPLIFICATION CERVICAL 06/07/2024 12:0 0 PM LEHR TENDER us Donovan Hayward MD MICROBIOLOGY - GENERAL ORDERABL ES Final Result Performing Organization Address [facility] Co de Phone Number [facility] [address] [place] [address], [facility] [address] [place] [address], [phone] * HEPATITIS C ANTIBODY (06/07/2024 12:00 PM LEHR TENDER) HEPATITIS C AB NON-REACTI VE NON-REACT HUNG 06/07/2024 6:51 PM LEHR TENDER [facility] Comment: ANTIBODIES TO HCV NOT DETECTED. DOES NOT EXCLUDE THE POSSIBILITY OF EXPOSURE TO HCV. 06/07/2024 12:0 0 PM LEHR TENDER us Donovan Hayward MD LABORATORY Final Result Performing Organization Address [facility] Co de Phone Number [facility] [address] [place] [address], [phone] * Cytopath Cerv/Vag Thin Layer (06/07/2024 12:00 AM LEHR TENDER) THIN PREP PAP [address] [address] Department of Pathology Pathology Report CERVICAL/VAGINAL PAP SMEAR REPORT Name: CECE ALFONSO Age: 1 2000 (Age: 23) Location: [facility] Sex: F Collected Date: 06/07/2024 Hospital #: [id number] Date Received: 06/08/2024 Date Reported: 06/13/2024 Provider: DONOVAN HAYWARD MD INTERPRETATION ABNORMAL RESULT CERVICAL/ENDOCERVI RYAN: SATISFACTORY FOR EVALUATION. ENDOCERVICAL/TRANS FORMATION ZONE COMPONENT PRESENT. LOW GRADE SQUAMOUS INTRAEPITHELIAL LESION. Initial [place] [address]. This case was interpreted and signed out at [facility], [address] [place] [address]. Electronically Signed Out NOEL Hinds MD (ASCP) [...] is not effective in detecting cervical adenocarcinoma. [facility] () [facility] 06/07/2024 06/08/2024 1:0 4 PM LEHR TENDER Comment:CERVICAL/ENDOCERVICA L us Donovan Hayward MD PATHOLOGY/CYTOLOGY ORDERABLES F inal Result [facility] ([facility] [address] [place] [address], from Last 3 Months or Most Recently Relevant to Health Maintenance Insurance [facility] GENERIC - COMMERCIAL [facility] Care Teams Development Trainer Relationship Specialty Start Date End Date Kaye Rob MD [address] [phone] PCP - General INTERNAL MEDICINE 10/22/17
--- OUTSIDE RECORDS SUMMARY | 2025-02-27 13:03 | XMS_ITS | Encounter Summary ---
Author Organization [facility] - [facility] Address [address] [place] [address] Care Team Providers Care Lvn Name Role Phone Kaye Rob MD Primary Care Provider [phone] Encounter Details Date Type Department Care Team (Late st Contact Info) Description 12/09/2018 Abstract SFL CONVERSION [address] [place] [address] , Generic Conversion, Social History Tobacco Use Types Packs/Day Years Used Date Smoking Tobacco: Never Smokeless Tobacco: Never Alcohol Use Standard Drinks/Week Comments No 0 (1 standard drink = 0.6 oz pur e alcohol) Comments No Sex and Gender Information Value Date Recorded Sex Assigned at Not on file Legal Sex Female 9:55 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
== END 2025-02-27 12:53 | disposition home or self-care (01) ==
LOC: CHSIMG 12:54
PROVIDERS: PCP Family Medicine; Visit Provider Family Medicine
DX: Z34.90 Encounter for supervision of normal pregnancy, unspecified, unspecified trimester (principal)
CPT/HCPCS: 76801; 76817

== ENCOUNTER 2025-02-28 08:26 | Outpatient (CLI) | payer OTHER, SELFPAY ==
--- OUTSIDE RECORDS SUMMARY | 2025-02-28 08:29 | XMS_ITS | Clinical Summary ---
Author Organization [facility] Address [address] [address] Phone Care Team Providers Care Desktop Manager Name Role Phone Unavailable Primary Care Provider [...]
[2025-02-28 10:27] LABS: Beta HCG Quantitative 20.78 mIU/ML
== END 2025-02-28 08:27 | disposition home or self-care (01) ==
LOC: CHSLAB 08:27
PROVIDERS: PCP Family Medicine; Visit Provider Family Medicine
DX: Z34.90 Encounter for supervision of normal pregnancy, unspecified, unspecified trimester (principal)
CPT/HCPCS: 36415; 84702

== ENCOUNTER 2025-03-06 09:24 | Outpatient (CLI) | payer OTHER, SELFPAY ==
[2025-03-06 09:45] LABS: Hematocrit 41.5 % (35.0-49.0); Hemoglobin 13.5 g/dL (12.0-15.0); Immature Granulocyte Percent A 0.6 % (0.0-0.0); Lymphocytes Absolute Auto 2.04 K/mm3 (1.10-4.50); Mean Corpuscular HGB Conc 32.5 g/dL (32-36); Mean Corpuscular Hemoglobin 28.1 pg (27.0-31.0); Mean Corpuscular Volume 86.3 fL (78.0-102.0); Nucleated Red Blood Cells Absolute Auto 0.00 K/mm3 (0.00-0.00); Nucleated Red Blood Cells Perc 0.0 % (0-0.0); Platelet Count Result 271 K/mm3 (150-420); Red Blood Count 4.81 M/mm3 (4.20-5.40); White Blood Count 6.9 K/mm3 (4.8-10.8)
--- OUTSIDE RECORDS SUMMARY | 2025-03-06 09:59 | XMS_ITS | Clinical Summary ---
Author Organization [facility] Address [address] [address] Phone Care Team Providers Care Veneer Jointer Offbearer Name Role Phone Unavailable Primary Care Provider [...]
--- OUTSIDE RECORDS SUMMARY | 2025-03-06 10:00 | XMS_ITS | Encounter Summary ---
Author Organization [facility] - [facility] Address [address] [place] [address] Care Team Providers Care Communications Designer Name Role Phone Kaye Rob MD Primary Care Provider [phone] Encounter Details Date Type Department Care Team (Late st Contact Info) Description 12/09/2018 Abstract SFL CONVERSION [address] [place] [address] , Generic Conversion, Social History Tobacco Use Types Packs/Day Years Used Date Smoking Tobacco: Never Smokeless Tobacco: Never Alcohol Use Standard Drinks/Week Comments No 0 (1 standard drink = 0.6 oz pur e alcohol) Comments No Sex and Gender Information Value Date Recorded Sex Assigned at Not on file Legal Sex Female 9:55 PM [employer] Gender Identity Not on file Sexual Orientation Not on file documented as of this encounter Plan of Treatment Not on file documented as of this encounter Visit Diagnoses Not on filedocumented in this encounter Care Teams Communications Designer Relationship Specialty Start Date End Date Kaye Rob MD [address] [place] [phone] PCP - General INTERNAL MEDICINE 10/22/17 documented as of this encounter
[2025-03-06 10:25] LABS: Alanine Aminotransferase 25 U/L (6-35); Albumin Level 4.8 g/dL (3.5-5.1); Alkaline Phosphatase 56 U/L (38-126); Anion Gap 13 mmol/L (4-12); Aspartate Amino Transferase 29 U/L (14-36); Bilirubin,Total 0.6 mg/dL (0.2-1.3); Blood Urea Nitrogen 12 mg/dL (7-17); CRP 1.3 mg/dL (<1.0); Calcium 10.3 mg/dL (8.4-10.2); Carbon Dioxide 26 mmol/L (22-30); Chloride 103 mmol/L (98-107); Estimated Glomerular Filt Rate > 60; Glucose 85 mg/dL (65-110); Osmolality Calculated 292 mOsm/kg (285-295); Potassium 4.7 mmol/L (3.4-5.0); Sodium 142 mmol/L (137-145); Total Protein 7.5 g/dL (6.3-8.2)
== END 2025-03-06 09:25 | disposition home or self-care (01) ==
LOC: CHSLAB 09:25
PROVIDERS: PCP Family Medicine; Visit Provider Family Medicine
DX: L08.9 Local infection of the skin and subcutaneous tissue, unspecified (principal)
CPT/HCPCS: 36415; 80053; 85025; 86140

== ENCOUNTER 2025-03-20 15:56 | Outpatient (NON) | payer OTHER, SELFPAY ==
--- OUTSIDE RECORDS SUMMARY | 2025-03-20 16:34 | XMS_ITS | Encounter Summary ---
Author Organization [facility] Address [address] [place] [address] Care Team Providers Care Wet Process Head Miller Name Role Phone Kaye Rob MD Primary Care Provider [phone] Encounter Details Date Type Department Care Team (Late st Contact Info) Description 12/09/2018 Abstract SFL CONVERSION [address] [place] [address] , Generic Conversion, Social History Tobacco Use Types Packs/Day Years Used Date Smoking Tobacco: Never Smokeless Tobacco: Never Alcohol Use Standard Drinks/Week Comments No 0 (1 standard drink = 0.6 oz pur e alcohol) Comments No Sex and Gender Information Value Date Recorded Sex Assigned at Not on file Legal 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
--- OUTSIDE RECORDS SUMMARY | 2025-03-20 16:34 | XMS_ITS | Clinical Summary ---
Author Organization [facility] Address [address] [address] Phone Care Team Providers Care Marketing Assistant Name Role Phone Unavailable Primary Care Provider [...]
--- OUTSIDE RECORDS SUMMARY | 2025-03-20 16:34 | XMS_ITS | Clinical Summary ---
Author Organization [facility] Address [address] [place] [address] Care Team Providers Care Customer Service Leader Name Role Phone Kaye Rob MD Primary Care Provider [phone] Allergies Active Allergy Reactions Criticality Noted Date Comments Sulfa Antibiotics Rash Low 10/22/2017 Medications ondansetron (ZOFRAN-ODT) 4 MG disintegrating tablet Take 1 tablet (4 mg total) by mouth every 8 (eight) hours as needed for Nausea. 20 tablet 3 Active Active Problems Problem Noted Date Diagnosed Date ([facility]) 11/08/2017 Threatened labor ([facility]) 10/22/2017 Family [...] on file Legal Sex Female 9:55 PM UNDERWRITING ANALYST Gender Identity Not on file Sexual [...] HPV Vaccines (1 - 3-dose series) 2013 PHQ-2 (Physician [place]) 07/04/2024 COVID-19 Vaccine ( season) 2025 05/26/2021, 07/21/2020, 07/01/2020 Cervical Cancer Screening Pap Smear (Age 19 [...] GC RNA Routine 06/07/2024 12:0 0 PM UNDERWRITING ANALYST Other specified noninflammatory disorders of vagina HEPATITIS C ANTIBODY Routine 06/07/2024 12:00 PM UNDERWRITING ANALYST Encounter for screening for infections with a predominantly sexual mode of transmission CYTOPATH CERV/VAG THIN LAYER Routine 06/07/2024 12:00 AM UNDERWRITING ANALYST from Last 3 Months or Most Recently Relevant to Health Maintenance Results * CHLAMYDIA GC RNA (06/07/2024 12:00 PM UNDERWRITING ANALYST) SPECIMEN CERVICAL 06/07/2024 2:14 PM UNDERWRITING ANALYST [facility] CHLAMYDIA RNA TMA NEGATIVE NEGATIVE 024 3:39 PM UNDERWRITING ANALYST [facility] Comment:PERFORMED BY NUCLEIC ACID AMPLIFICATION N.GONORRHOEAE RNA TMA NEGATIVE NEGATIVE 06/08/2024 3:39 PM UNDERWRITING ANALYST [facility] Comment:PERFORMED BY NUCLEIC ACID AMPLIFICATION CERVICAL 06/07/2024 12:0 0 PM UNDERWRITING ANALYST us Donovan Hayward MD MICROBIOLOGY - GENERAL ORDERABL ES Final Result Performing Organization Address [facility] Co de Phone Number [facility] [address] [place] [address], [facility] [address] [place] [address], [phone] * HEPATITIS C ANTIBODY (06/07/2024 12:00 PM UNDERWRITING ANALYST) HEPATITIS C AB NON-REACTI VE NON-REACT HUNG 06/07/2024 6:51 PM UNDERWRITING ANALYST [facility] Comment: ANTIBODIES TO HCV NOT DETECTED. DOES NOT EXCLUDE THE POSSIBILITY OF EXPOSURE TO HCV. 06/07/2024 12:0 0 PM UNDERWRITING ANALYST us Donovan Hayward MD LABORATORY Final Result Performing Organization Address [facility] Co de Phone Number [facility] [address] [place] [address], [phone] * Cytopath Cerv/Vag Thin Layer (06/07/2024 12:00 AM UNDERWRITING ANALYST) THIN PREP PAP [address] [address] Department of Pathology Pathology Report CERVICAL/VAGINAL PAP SMEAR REPORT Name: CECE ALFONSO Age: 1 2000 (Age: 23) Location: [facility] Sex: F Collected Date: 06/07/2024 Hospital #: [id number] Date Received: 06/08/2024 Date Reported: 06/13/2024 Provider: DONOVAN HAYWARD MD INTERPRETATION ABNORMAL RESULT CERVICAL/ENDOCERVI RYAN: SATISFACTORY FOR EVALUATION. ENDOCERVICAL/TRANS FORMATION ZONE COMPONENT PRESENT. LOW GRADE SQUAMOUS INTRAEPITHELIAL LESION. Initial [place] [address]. This case was interpreted and signed out at [facility], [address] [place] [address]. Electronically Signed Out NOEL Hinds MD (ASCP) [...] is not effective in detecting cervical adenocarcinoma. [facility] () [facility] 06/07/2024 06/08/2024 1:0 4 PM UNDERWRITING ANALYST Comment:CERVICAL/ENDOCERVICA L us Donovan Hayward MD PATHOLOGY/CYTOLOGY ORDERABLES F inal Result [facility] ([facility] [address] [place] [address], from Last 3 Months or Most Recently Relevant to Health Maintenance Insurance [facility] GENERIC - COMMERCIAL [facility] Care Teams Customer Service Leader Relationship Specialty Start Date End Date Kaye Rob MD [address] [phone] PCP - General INTERNAL MEDICINE 10/22/17
== END 2025-03-20 15:57 | disposition home or self-care (01) ==
LOC: CHSLAB 15:57
PROVIDERS: PCP Nurse Practitioner Family; Visit Provider Nurse Practitioner Family
DX: N89.8 Other specified noninflammatory disorders of vagina (principal)
CPT/HCPCS: 87491; 87591; 87661; 87798; 87801

== ENCOUNTER 2025-03-25 15:02 | Outpatient (CLI) | payer OTHER, SELFPAY ==
--- OUTSIDE RECORDS SUMMARY | 2025-03-25 15:15 | XMS_ITS | Clinical Summary ---
Author Organization [facility] Address [address] [place] [address] Care Team Providers Care Vet Assistant Name Role Phone Kaye Rob MD Primary Care Provider [phone] Allergies Active Allergy Reactions Criticality Noted Date Comments Sulfa Antibiotics Rash Low 10/22/2017 Medications ondansetron (ZOFRAN-ODT) 4 MG disintegrating tablet Take 1 tablet (4 mg total) by mouth every 8 (eight) hours as needed for Nausea. 20 tablet 3 Active Active Problems Problem Noted Date Diagnosed Date ([facility]) 11/08/2017 Threatened labor ([facility]) 10/22/2017 Family History Medical History Relation Comments [...] on file Legal Sex Female 9:55 PM PUBLIC ADDRESS TECHNICIAN Gender Identity Not on file Sexual [...] (1 - 3-dose series) 2013 PHQ-2 (Physician [place]) 07/04/2024 COVID-19 Vaccine ( season) 2025 05/26/2021, [...] GC RNA Routine 06/07/2024 12:0 0 PM PUBLIC ADDRESS TECHNICIAN Other specified noninflammatory disorders of vagina HEPATITIS C ANTIBODY Routine 06/07/2024 12:00 PM PUBLIC ADDRESS TECHNICIAN Encounter for screening for infections with a predominantly sexual mode of transmission CYTOPATH CERV/VAG THIN LAYER Routine 06/07/2024 12:00 AM PUBLIC ADDRESS TECHNICIAN from Last 3 Months or Most Recently Relevant to Health Maintenance Results * CHLAMYDIA GC RNA (06/07/2024 12:00 PM PUBLIC ADDRESS TECHNICIAN) SPECIMEN CERVICAL 06/07/2024 2:14 PM PUBLIC ADDRESS TECHNICIAN [facility] CHLAMYDIA RNA TMA NEGATIVE NEGATIVE 024 3:39 PM PUBLIC ADDRESS TECHNICIAN [facility] Comment:PERFORMED BY NUCLEIC ACID AMPLIFICATION N.GONORRHOEAE RNA TMA NEGATIVE NEGATIVE 06/08/2024 3:39 PM PUBLIC ADDRESS TECHNICIAN [facility] Comment:PERFORMED BY NUCLEIC ACID AMPLIFICATION CERVICAL 06/07/2024 12:0 0 PM PUBLIC ADDRESS TECHNICIAN us Donovan Hayward MD MICROBIOLOGY - GENERAL ORDERABL ES Final Result Performing Organization Address [facility] Co de Phone Number [facility] [address] [place] [address], [facility] [address] [place] [address], [phone] * HEPATITIS C ANTIBODY (06/07/2024 12:00 PM PUBLIC ADDRESS TECHNICIAN) HEPATITIS C AB NON-REACTI VE NON-REACT HUNG 06/07/2024 6:51 PM PUBLIC ADDRESS TECHNICIAN [facility] Comment: ANTIBODIES TO HCV NOT DETECTED. DOES NOT EXCLUDE THE POSSIBILITY OF EXPOSURE TO HCV. 06/07/2024 12:0 0 PM PUBLIC ADDRESS TECHNICIAN us Donovan Hayward MD LABORATORY Final Result Performing Organization Address [facility] Co de Phone Number [facility] [address] [place] [address], [phone] * Cytopath Cerv/Vag Thin Layer (06/07/2024 12:00 AM PUBLIC ADDRESS TECHNICIAN) THIN PREP PAP [address] [address] Department of Pathology Pathology Report CERVICAL/VAGINAL PAP SMEAR REPORT Name: CECE ALFONSO Age: 1 2000 (Age: 23) Location: [facility] Sex: F Collected Date: 06/07/2024 Hospital #: [id number] Date Received: 06/08/2024 Date Reported: 06/13/2024 Provider: DONOVAN HAYWARD MD INTERPRETATION ABNORMAL RESULT CERVICAL/ENDOCERVI RYAN: SATISFACTORY FOR EVALUATION. ENDOCERVICAL/TRANS FORMATION ZONE COMPONENT PRESENT. LOW GRADE SQUAMOUS INTRAEPITHELIAL LESION. Initial [place]ologic [place] [address]. This case was interpreted and signed out at [facility], [address] [place] [address]. Electronically Signed Out NOEL Hinds MD (ASCP) [...] is not effective in detecting cervical adenocarcinoma. [facility] () [facility] 06/07/2024 06/08/2024 1:0 4 PM PUBLIC ADDRESS TECHNICIAN Comment:CERVICAL/ENDOCERVICA L us Donovan Hayward MD PATHOLOGY/CYTOLOGY ORDERABLES F inal Result [facility] ([facility] [address] [place] [address], from Last 3 Months or Most Recently Relevant to Health Maintenance Insurance [facility] GENERIC - COMMERCIAL [facility] Care Teams Vet Assistant Relationship Specialty Start Date End Date Kaye Rob MD [address] [phone] PCP - General INTERNAL MEDICINE 10/22/17
--- OUTSIDE RECORDS SUMMARY | 2025-03-25 15:15 | XMS_ITS | Clinical Summary ---
Author Organization [facility] Address [address] [address] Phone Care Team Providers Care Pharmacy Tech Customer Service Name Role Phone Unavailable Primary Care Provider [...]
--- OUTSIDE RECORDS SUMMARY | 2025-03-25 15:15 | XMS_ITS | Encounter Summary ---
Author Organization [facility] - [facility] Address [address] [place] [address] Care Team Providers Care Rebeamer Name Role Phone Kaye Rob MD Primary Care Provider Encounter Details Date Type Department Care Team (Late st Contact Info) Description 12/09/2018 Abstract SFL CONVERSION [address] [address] , Generic Conversion, Social History Tobacco Use Types Packs/Day Years Used Date Smoking Tobacco: Never Smokeless Tobacco: Never Alcohol Use Standard Drinks/Week Comments No 0 (1 standard drink = 0.6 oz pur e alcohol) Comments No Sex and Gender Information Value Date Recorded Sex Assigned at Not on file Legal Sex Female 9:55 PM BANQUET ATTENDANT Gender Identity Not on file Sexual Orientation Not on file documented as of this encounter Plan of Treatment Not on file documented as of this encounter Visit Diagnoses Not on filedocumented in this encounter Care Teams Rebeamer Relationship Specialty Start Date End Date Kaye Rob MD [address] [place] [phone] PCP - General INTERNAL MEDICINE 10/22/17 documented as of this encounter
[2025-03-25 15:45] LABS: Beta HCG Quantitative 24.05 mIU/ML
== END 2025-03-25 15:03 | disposition home or self-care (01) ==
PROVIDERS: PCP Nurse Practitioner Family; Visit Provider Nurse Practitioner Family
DX: Z32.01 Encounter for pregnancy test, result positive (principal)
CPT/HCPCS: 36415; 84702

== ENCOUNTER 2025-03-27 09:11 | Outpatient (CLI) | payer OTHER, SELFPAY ==
--- OUTSIDE RECORDS SUMMARY | 2025-03-27 09:48 | XMS_ITS | Clinical Summary ---
Author Organization [facility] Address [address] [place] [address] Care Team Providers Care Electric Welder Name Role Phone Kaye Rob MD Primary Care Provider [phone] Allergies Active Allergy Reactions Criticality Noted Date Comments Sulfa Antibiotics Rash Low 10/22/2017 Medications ondansetron (ZOFRAN-ODT) 4 MG disintegrating tablet Take 1 tablet (4 mg total) by mouth every 8 (eight) hours as needed for Nausea. 20 tablet 3 Active Active Problems Problem Noted Date Diagnosed Date ([facility]) 11/08/2017 Threatened labor ([facility]) 10/22/2017 Family History Medical History Relation Comments [...] on file Legal Sex Female 9:55 PM SCREW MACHINE OPERATOR Gender Identity Not on file Sexual Orientation [...] (1 - 3-dose series) 2013 PHQ-2 (Physician [place]) 07/04/2024 COVID-19 Vaccine ( season) 2025 05/26/2021, [...] GC RNA Routine 06/07/2024 12:0 0 PM SCREW MACHINE OPERATOR Other specified noninflammatory disorders of vagina HEPATITIS C ANTIBODY Routine 06/07/2024 12:00 PM SCREW MACHINE OPERATOR Encounter for screening for infections with a predominantly sexual mode of transmission CYTOPATH CERV/VAG THIN LAYER Routine 06/07/2024 12:00 AM SCREW MACHINE OPERATOR from Last 3 Months or Most Recently Relevant to Health Maintenance Results * CHLAMYDIA GC RNA (06/07/2024 12:00 PM SCREW MACHINE OPERATOR) SPECIMEN CERVICAL 06/07/2024 2:14 PM SCREW MACHINE OPERATOR [facility] CHLAMYDIA RNA TMA NEGATIVE NEGATIVE 024 3:39 PM SCREW MACHINE OPERATOR [facility] Comment:PERFORMED BY NUCLEIC ACID AMPLIFICATION N.GONORRHOEAE RNA TMA NEGATIVE NEGATIVE 06/08/2024 3:39 PM SCREW MACHINE OPERATOR [facility] Comment:PERFORMED BY NUCLEIC ACID AMPLIFICATION CERVICAL 06/07/2024 12:0 0 PM SCREW MACHINE OPERATOR us Donovan Hayward MD MICROBIOLOGY - GENERAL ORDERABL ES Final Result Performing Organization Address [facility] Co de Phone Number [facility] [address] [place] [address], [facility] [address] [place] [address], [phone] * HEPATITIS C ANTIBODY (06/07/2024 12:00 PM SCREW MACHINE OPERATOR) HEPATITIS C AB NON-REACTI VE NON-REACT HUNG 06/07/2024 6:51 PM SCREW MACHINE OPERATOR [facility] Comment: ANTIBODIES TO HCV NOT DETECTED. DOES NOT EXCLUDE THE POSSIBILITY OF EXPOSURE TO HCV. 06/07/2024 12:0 0 PM SCREW MACHINE OPERATOR us Donovan Hayward MD LABORATORY Final Result Performing Organization Address [facility] Co de Phone Number [facility] [address] [place] [address], [phone] * Cytopath Cerv/Vag Thin Layer (06/07/2024 12:00 AM SCREW MACHINE OPERATOR) THIN PREP PAP [address] [phone] Department of Pathology Pathology Report CERVICAL/VAGINAL PAP SMEAR REPORT Name: CECE ALFONSO Age: 1 2000 (Age: 23) Location: [facility] Sex: F Collected Date: 06/07/2024 Hospital #: [id number] Date Received: 06/08/2024 Date Reported: 06/13/2024 Provider: DONOVAN HAYWARD MD INTERPRETATION ABNORMAL RESULT CERVICAL/ENDOCERVI RYAN: SATISFACTORY FOR EVALUATION. ENDOCERVICAL/TRANS FORMATION ZONE COMPONENT PRESENT. LOW GRADE SQUAMOUS INTRAEPITHELIAL LESION. Initial cytologic [place] [address]. This case was interpreted and signed out at [facility], [address] [place] [address]. Electronically Signed Out NOEL Hinds MD (ASCP) [...] is not effective in detecting cervical adenocarcinoma. [facility] () [facility] 06/07/2024 06/08/2024 1:0 4 PM SCREW MACHINE OPERATOR Comment:CERVICAL/ENDOCERVICA L us Donovan Hayward MD PATHOLOGY/CYTOLOGY ORDERABLES F inal Result [facility] ([facility] [address] [place] [address], from Last 3 Months or Most Recently Relevant to Health Maintenance Insurance [facility] GENERIC - COMMERCIAL [facility] Care Teams Electric Welder Relationship Specialty Start Date End Date Kaye Rob MD [address] [phone] PCP - General INTERNAL MEDICINE 10/22/17
--- OUTSIDE RECORDS SUMMARY | 2025-03-27 09:48 | XMS_ITS | Clinical Summary ---
Author Organization [facility] Address [address] [address] Phone Care Team Providers Care Regional Tanker Truck Driver Name Role Phone Unavailable Primary Care Provider [...]
--- OUTSIDE RECORDS SUMMARY | 2025-03-27 09:48 | XMS_ITS | Encounter Summary ---
Author Organization [facility] - [facility] Address [address] [place] [address] Care Team Providers Care Rubber Off Name Role Phone Kaye Rob MD Primary Care Provider [phone] Encounter Details Date Type Department Care Team (Late st Contact Info) Description 12/09/2018 Abstract SFL CONVERSION [address] [place] [address] , Generic Conversion, Social History Tobacco Use Types Packs/Day Years Used Date Smoking Tobacco: Never Smokeless Tobacco: Never Alcohol Use Standard Drinks/Week Comments No 0 (1 standard drink = 0.6 oz pur e alcohol) Comments No Sex and Gender Information Value Date Recorded Sex Assigned at Not on file Legal Sex Female 9:55 PM MUD ANALYSIS SUPERVISOR Gender Identity Not on file Sexual Orientation Not on file documented as of this encounter Plan of Treatment Not on file documented as of this encounter Visit Diagnoses Not on filedocumented in this encounter Care Teams Rubber Off Relationship Specialty Start Date End Date Kaye Rob MD [address] [place] [phone] PCP - General INTERNAL MEDICINE 10/22/17 documented as of this encounter
[2025-03-27 10:28] LABS: Beta HCG Quantitative 76.61 mIU/ML
== END 2025-03-27 09:12 | disposition home or self-care (01) ==
LOC: CHSLAB 09:12
PROVIDERS: PCP Family Medicine; Visit Provider Nurse Practitioner Family
DX: Z32.01 Encounter for pregnancy test, result positive (principal)
CPT/HCPCS: 36415; 84702

== ENCOUNTER 2025-03-28 15:04 | Outpatient (CLI) | payer OTHER, SELFPAY ==
[2025-03-28 15:48] LABS: Beta HCG Quantitative 136.85 mIU/ML
--- OUTSIDE RECORDS SUMMARY | 2025-03-28 17:23 | XMS_ITS | Encounter Summary ---
Author Organization [facility] Address [address] [place] [address] Care Team Providers Care Legal Financial Specialist Name Role Phone Kaye Rob MD Primary Care Provider [phone] Encounter Details Date Type Department Care Team (Late st Contact Info) Description 03/28/2025 Orders Only [facility] [address] [place] [address] Navjot Hayward MD [address] [place] [address] Social History Tobacco Use Types Packs/Day Years Used Date Smoking Tobacco: Never Smokeless Tobacco: Never Alcohol Use Standard Drinks/Week Comments No 0 (1 standard drink = 0.6 oz pur e alcohol) Comments No Sex and Gender Information Value Date Recorded Sex Assigned at Not on file Legal Sex Female 9:55 PM DIALYSIS TECHNICIAN Gender Identity Not on file Sexual Orientation Not on file documented as of this encounter Plan of Treatment Scheduled Orders Name Type Priority Associated Diagnoses Orde r Schedule HCG QUANT (SERUM)-CHORIONIC GONADOTROPIN Lab Routine Oligomenorrhea, unspecified Expected: 03/28/2025, Expires: 03/28/2026 documented as of this encounter Visit Diagnoses Diagnosis Oligomenorrhea, unspecified documented in this encounter Care Teams Legal Financial Specialist Relationship Specialty Start Date End Date Kaye Rob MD [address] [place] [address] PCP - General INTERNAL MEDICINE 10/22/17 documented as of this encounter
--- OUTSIDE RECORDS SUMMARY | 2025-03-28 17:23 | XMS_ITS | Clinical Summary ---
Author Organization [facility] Address [address] [address] Phone Care Team Providers Care Die Attaching Machine Tender Name Role Phone Unavailable Primary Care [...]
--- OUTSIDE RECORDS SUMMARY | 2025-03-28 17:23 | XMS_ITS | Encounter Summary ---
Author Organization [facility] - [facility] Address [address] [place] [address] Care Team Providers Care Hoop Riveter Name Role Phone Kaye Rob MD Primary Care Provider [phone] Encounter Details Date Type Department Care Team (Late st Contact Info) Description 12/09/2018 Abstract SFL CONVERSION [address] [place] [address] , Generic Conversion, Social History Tobacco Use Types Packs/Day Years Used Date Smoking Tobacco: Never Smokeless Tobacco: Never Alcohol Use Standard Drinks/Week Comments No 0 (1 standard drink = 0.6 oz pur e alcohol) Comments No Sex and Gender Information Value Date Recorded Sex Assigned at Not on file Legal Sex Female 9:55 PM CONTRACT ADMIN Gender Identity Not on file Sexual Orientation Not on file documented as of this encounter Plan of Treatment Not on file documented as of this encounter Visit Diagnoses Not on filedocumented in this encounter Care Teams Hoop Riveter Relationship Specialty Start Date End Date Kaye Rob MD [address] [place] [phone] PCP - General INTERNAL MEDICINE 10/22/17 documented as of this encounter
--- OUTSIDE RECORDS SUMMARY | 2025-03-28 17:23 | XMS_ITS | Clinical Summary ---
Author Organization [facility] Address [address] [place] [address] Care Team Providers Care [address] Freight Name Role Phone Kaye Rob MD Primary Care Provider [phone] Allergies Active Allergy Reactions Criticality Noted Date Comments Sulfa Antibiotics Rash Low 10/22/2017 Medications ondansetron (ZOFRAN-ODT) 4 MG disintegrating tablet Take 1 tablet (4 mg total) by mouth every 8 (eight) hours as needed for Nausea. 20 tablet 3 Active Active Problems Problem Noted Date Diagnosed Date ([facility]) 11/08/2017 Threatened labor ([facility]) 10/22/2017 Encounters Date Type Department Care Team Description 03/28/2025 Orders Only [facility] [address] [place] [address] Navjot Hayward MD from Last 3 Months [...] on file Legal Sex Female 9:55 PM LAMINATE FLOOR INSTALLER Gender Identity Not on file Sexual Orientation [...] (1 - 3-dose series) 2013 PHQ-2 (Physician [place]) 07/04/2024 COVID-19 Vaccine ( season) 2025 05/26/2021, [...] GC RNA Routine 06/07/2024 12:0 0 PM LAMINATE FLOOR INSTALLER Other specified noninflammatory disorders of vagina HEPATITIS C ANTIBODY Routine 06/07/2024 12:00 PM LAMINATE FLOOR INSTALLER Encounter for screening for infections with a predominantly sexual mode of transmission CYTOPATH CERV/VAG THIN LAYER Routine 06/07/2024 12:00 AM LAMINATE FLOOR INSTALLER from Last 3 Months or Most Recently Relevant to Health Maintenance Results * CHLAMYDIA GC RNA (06/07/2024 12:00 PM LAMINATE FLOOR INSTALLER) SPECIMEN CERVICAL 06/07/2024 2:14 PM LAMINATE FLOOR INSTALLER [facility] CHLAMYDIA RNA TMA NEGATIVE NEGATIVE 024 3:39 PM LAMINATE FLOOR INSTALLER [facility] Comment:PERFORMED BY NUCLEIC ACID AMPLIFICATION N.GONORRHOEAE RNA TMA NEGATIVE NEGATIVE 06/08/2024 3:39 PM LAMINATE FLOOR INSTALLER [facility] Comment:PERFORMED BY NUCLEIC ACID AMPLIFICATION CERVICAL 06/07/2024 12:0 0 PM LAMINATE FLOOR INSTALLER us Navjot Hayward MD MICROBIOLOGY - GENERAL ORDERABL ES Final Result [facility] [address] [place] [address], [facility] [address] [place] [address], [place] [phone] * HEPATITIS C ANTIBODY (06/07/2024 12:00 PM LAMINATE FLOOR INSTALLER) HEPATITIS C AB NON-REACTI VE NON-REACT HUNG 06/07/2024 6:51 PM LAMINATE FLOOR INSTALLER [facility] Comment: ANTIBODIES TO HCV NOT DETECTED. DOES NOT EXCLUDE THE POSSIBILITY OF EXPOSURE TO HCV. 06/07/2024 12:0 0 PM LAMINATE FLOOR INSTALLER us Navjot Hayward MD LABORATORY Final Result [facility] [address] [place] [address], [id number] * Cytopath Cerv/Vag Thin Layer (06/07/2024 12:00 AM LAMINATE FLOOR INSTALLER) THIN PREP PAP [address] [address] Department of Pathology Pathology Report CERVICAL/VAGINAL PAP SMEAR REPORT Name: CECE ALFONSO Age: 1 2000 (Age: 23) Location: [facility] Sex: F Collected Date: 06/07/2024 Hospital #: [id number] Date Received: 06/08/2024 Date Reported: 06/13/2024 Provider: NAVJOT HAYWARD MD INTERPRETATION ABNORMAL RESULT CERVICAL/ENDOCERVI RYAN: SATISFACTORY FOR EVALUATION. ENDOCERVICAL/TRANS FORMATION ZONE COMPONENT PRESENT. LOW GRADE SQUAMOUS INTRAEPITHELIAL LESION. Initial cytologic [place] [address]. This case was interpreted and signed out at [facility], [address] [place] [address], [place] [address]. Electronically Signed Out NAVJOT Ayala, [place] (ASCP) CLINICAL HISTORY R87.619 ABNORMAL PAP SMEAR [...] cervical adenocarcinoma. [facility] () [facility] 06/07/2024 06/08/2024 1:0 4 PM LAMINATE FLOOR INSTALLER Comment:CERVICAL/ENDOCERVICA L Navjot Hayward MD PATHOLOGY/CYTOLOGY ORDERABLES F inal Result [facility] [address] [place] [address], from Last 3 Months or Most Recently Relevant to Health Maintenance Insurance [facility] GENERIC - COMMERCIAL [facility] Care Teams [address] Freight Relationship Specialty Start Date End Date Kaye Rob MD [address] [place] [address] PCP - General INTERNAL MEDICINE 10/22/17
== END 2025-03-28 15:05 | disposition home or self-care (01) ==
LOC: CHSLAB 15:07
PROVIDERS: PCP Family Medicine
DX: N91.5 Oligomenorrhea, unspecified (principal)
CPT/HCPCS: 36415; 84702

== ENCOUNTER 2025-04-01 07:30 | Outpatient (CLI) | payer OTHER, SELFPAY ==
--- OUTSIDE RECORDS SUMMARY | 2025-04-01 07:34 | XMS_ITS | Encounter Summary ---
Author Organization [facility] Address [address] [place] [address] Care Team Providers Care Second Grade Teacher Name Role Phone Kaye Rob MD Primary Care Provider [phone] Encounter Details Date Type Department Care Team (Late st Contact Info) Description 12/09/2018 Abstract SFL CONVERSION [address] [place] [address] , Generic Conversion, Social History Tobacco Use Types Packs/Day Years Used Date Smoking Tobacco: Never Smokeless Tobacco: Never Alcohol Use Standard Drinks/Week Comments No 0 (1 standard drink = 0.6 oz pur e alcohol) Comments No Sex and Gender Information Value Date Recorded Sex Assigned at Not on file Legal Sex Female 9:55 PM RELAY TECHNICIAN Gender Identity Not on file Sexual Orientation Not on file documented as of this encounter Plan of Treatment Not on file documented as of this encounter Visit Diagnoses Not on filedocumented in this encounter Care Teams Second Grade Teacher Relationship Specialty Start Date End Date Kaye Rob MD [address] [place] [phone] PCP - General INTERNAL MEDICINE 10/22/17 documented as of this encounter
--- OUTSIDE RECORDS SUMMARY | 2025-04-01 07:34 | XMS_ITS | Clinical Summary ---
Author Organization [facility] Address [address] [place] [address] Care Team Providers Care Advanced Manufacturing Associate Name Role Phone Kaye Rob MD Primary Care Provider [phone] Allergies Active Allergy Reactions Criticality Noted Date Comments Sulfa Antibiotics Rash Low 10/22/2017 Medications ondansetron (ZOFRAN-ODT) 4 MG disintegrating tablet Take 1 tablet (4 mg total) by mouth every 8 (eight) hours as needed for Nausea. 20 tablet 3 Active Active Problems Problem Noted Date Diagnosed Date ([facility]) 11/08/2017 Threatened labor ([facility]) 10/22/2017 Encounters Date Type Department Care Team Description 03/28/2025 Orders Only [facility] [address] [place] [address] Navjot Hayward MD from Last 3 Months [...] on file Legal Sex Female 9:55 PM MECHANICAL TECHNICIAN Gender Identity Not on file Sexual [...] (1 - 3-dose series) 2013 PHQ-2 (Physician [place]) 07/04/2024 COVID-19 Vaccine ( season) 2025 05/26/2021, [...] GC RNA Routine 06/07/2024 12:0 0 PM MECHANICAL TECHNICIAN Other specified noninflammatory disorders of vagina HEPATITIS C ANTIBODY Routine 06/07/2024 12:00 PM MECHANICAL TECHNICIAN Encounter for screening for infections with a predominantly sexual mode of transmission CYTOPATH CERV/VAG THIN LAYER Routine 06/07/2024 12:00 AM MECHANICAL TECHNICIAN from Last 3 Months or Most Recently Relevant to Health Maintenance Results * CHLAMYDIA GC RNA (06/07/2024 12:00 PM MECHANICAL TECHNICIAN) SPECIMEN CERVICAL 06/07/2024 2:14 PM MECHANICAL TECHNICIAN [facility] CHLAMYDIA RNA TMA NEGATIVE NEGATIVE 024 3:39 PM MECHANICAL TECHNICIAN [facility] Comment:PERFORMED BY NUCLEIC ACID AMPLIFICATION N.GONORRHOEAE RNA TMA NEGATIVE NEGATIVE 06/08/2024 3:39 PM MECHANICAL TECHNICIAN [facility] Comment:PERFORMED BY NUCLEIC ACID AMPLIFICATION CERVICAL 06/07/2024 12:0 0 PM MECHANICAL TECHNICIAN us Navjot Hayward MD MICROBIOLOGY - GENERAL ORDERABL ES Final Result [facility] [address] [place] [address], [facility] [address] [place] [address], [place] [phone] * HEPATITIS C ANTIBODY (06/07/2024 12:00 PM MECHANICAL TECHNICIAN) HEPATITIS C AB NON-REACTI VE NON-REACT HUNG 06/07/2024 6:51 PM MECHANICAL TECHNICIAN [facility] Comment: ANTIBODIES TO HCV NOT DETECTED. DOES NOT EXCLUDE THE POSSIBILITY OF EXPOSURE TO HCV. 06/07/2024 12:0 0 PM MECHANICAL TECHNICIAN us Navjot Hayward MD LABORATORY Final Result [facility] [address] [place] [address], [id number] * Cytopath Cerv/Vag Thin Layer (06/07/2024 12:00 AM MECHANICAL TECHNICIAN) THIN PREP PAP [address] [address] Department of Pathology Pathology Report CERVICAL/VAGINAL PAP SMEAR REPORT Name: CECE ALFONSO Age: 1 2000 (Age: 23) Location: [facility] Sex: F Collected Date: 06/07/2024 Hospital #: [id number] Date Received: 06/08/2024 Date Reported: 06/13/2024 Provider: NAVJOT HAYWARD MD INTERPRETATION ABNORMAL RESULT CERVICAL/ENDOCERVI RYAN: SATISFACTORY FOR EVALUATION. ENDOCERVICAL/TRANS FORMATION ZONE COMPONENT PRESENT. LOW GRADE SQUAMOUS INTRAEPITHELIAL LESION. Initial [place] [address]. This case was interpreted and signed out at [facility], [address] [place] [address], [place] [address]. Electronically Signed Out NAVJOT Ayala, [place] (ASCP) CLINICAL HISTORY R87.619 ABNORMAL PAP SMEAR [...] in detecting cervical adenocarcinoma. [facility] 06/07/2024 06/08/2024 1:0 4 PM MECHANICAL TECHNICIAN Comment:CERVICAL/ENDOCERVICA L Navjot Hayward MD PATHOLOGY/CYTOLOGY ORDERABLES F inal Result [facility] [address] [place] [address], from Last 3 Months or Most Recently Relevant to Health Maintenance Insurance [facility] GENERIC - COMMERCIAL [facility] [place] [address] Care Teams Advanced Manufacturing Associate Relationship Specialty Start Date End Date Kaye Rob MD [address] [place] [address] PCP - General INTERNAL MEDICINE 10/22/17
[2025-04-01 10:14] LABS: Beta HCG Quantitative 658.64 mIU/ML
== END 2025-04-01 07:31 | disposition home or self-care (01) ==
LOC: CHSLAB 07:31
PROVIDERS: Nurse Practitioner Family; PCP Nurse Practitioner Family; Visit Provider Nurse Practitioner Family
DX: Z32.01 Encounter for pregnancy test, result positive (principal)
CPT/HCPCS: 36415; 84144; 84702

== ENCOUNTER 2025-04-04 10:58 | Outpatient (CLI) | payer OTHER, SELFPAY ==
--- OUTSIDE RECORDS SUMMARY | 2025-04-04 11:29 | XMS_ITS | Clinical Summary ---
Author Organization [facility] Address [address] [address] Phone Care Team Providers Care Financial Administration Officer Name Role Phone Unavailable Primary Care Provider [...] of 3 - 19+ 3-dose series) 2017 Influenza Immunization (#1) 2025 SARS-COV-2 Immunization ( season) 2025 Respiratory Syncytial Virus (RSV) Immunization (Adult) [...]
[2025-04-04 11:55] LABS: Beta HCG Quantitative 2534.30 mIU/ML
== END 2025-04-04 10:59 | disposition home or self-care (01) ==
LOC: CHSLAB 10:59
PROVIDERS: PCP Family Medicine; Visit Provider Family Medicine
DX: Z34.90 Encounter for supervision of normal pregnancy, unspecified, unspecified trimester (principal)
CPT/HCPCS: 36415; 84702

== ENCOUNTER 2025-04-08 08:36 | Outpatient (CLI) | payer OTHER, SELFPAY ==
--- OUTSIDE RECORDS SUMMARY | 2025-04-08 08:59 | XMS_ITS | Clinical Summary ---
Author Organization [facility] Address [address] [address] Phone Care Team Providers Care Speech And Hearing Clinic Director Name Role Phone Unavailable Primary Care Provider [...]
[2025-04-08 09:47] LABS: Beta HCG Quantitative 11921.00 mIU/ML
== END 2025-04-08 08:37 | disposition home or self-care (01) ==
LOC: CHSLAB 08:36
PROVIDERS: PCP Family Medicine; Visit Provider Family Medicine
DX: Z32.01 Encounter for pregnancy test, result positive (principal)
CPT/HCPCS: 36415; 84702

== ENCOUNTER 2025-04-17 15:06 | Outpatient (CLI) | payer OTHER, SELFPAY ==
[2025-04-17 16:44] LABS: Beta HCG Quantitative 61089.00 mIU/ML
[2025-04-26 22:07] LABS: Estradiol, Sensitive 664.7 pg/mL (.)
== END 2025-04-17 15:07 | disposition home or self-care (01) ==
LOC: CHSLAB 15:07
PROVIDERS: PCP Family Medicine; Visit Provider Family Medicine
DX: Z32.01 Encounter for pregnancy test, result positive (principal)
CPT/HCPCS: 36415; 82670; 84144; 84702

== ENCOUNTER 2025-04-26 08:31 | Outpatient (CLI) | payer OTHER, SELFPAY ==
--- OUTSIDE RECORDS SUMMARY | 2025-04-26 08:39 | XMS_ITS | Clinical Summary ---
Author Organization [facility] Address [address] [address] Phone Care Team Providers Care Enrollment Manager Name Role Phone Unavailable Primary Care [...]
[2025-04-26 08:56] LABS: Hematocrit 37.2 % (35.0-49.0); Hemoglobin 12.4 g/dL (12.0-15.0); Immature Granulocyte Percent A 0.8 % (0.0-0.0); Lymphocytes Absolute Auto 1.62 K/mm3 (1.10-4.50); Mean Corpuscular HGB Conc 33.3 g/dL (32-36); Mean Corpuscular Hemoglobin 28.6 pg (27.0-31.0); Mean Corpuscular Volume 85.9 fL (78.0-102.0); Nucleated Red Blood Cells Absolute Auto 0.00 K/mm3 (0.00-0.00); Nucleated Red Blood Cells Perc 0.0 % (0-0.0); Platelet Count Result 234 K/mm3 (150-420); Red Blood Count 4.33 M/mm3 (4.20-5.40); White Blood Count 8.8 K/mm3 (4.8-10.8)
[2025-04-26 10:16] LABS: HIV 1 P24 AG Negative (Negative); HIV 1/2 AB Negative (Negative)
[2025-04-27 06:07] LABS: Measles Antibodies, IgG 41.3 AU/mL (Immune >16.4)
[2025-04-29 10:37] LABS: Syphilis IgG/IgM Antibody Non-Reactive (Nonreactive)
== END 2025-04-26 08:32 | disposition home or self-care (01) ==
PROVIDERS: PCP Family Medicine
DX: Z34.90 Encounter for supervision of normal pregnancy, unspecified, unspecified trimester (principal)
CPT/HCPCS: 36415; 85025; 86593; 86765; 86803; 86850; 86900; 86901; 87340; 87806

== ENCOUNTER 2025-05-02 09:34 | Outpatient (CLI) | payer OTHER, SELFPAY ==
--- NOTE | ~2025-05-02 | US_ITS ---
EXAM: US OB <=14 wk fetus w TV 05/02/2025 12:23 CDT HISTORY: Pelvic pain and fever. COMPARISON: None GENERAL: Number of embryos: 1 Heart rate: 161 bpm. [place]-Rump Length (mean): 2.28 cm, 9 weeks 0 days. HEATHER: December 05, 2025 Yolk Sac: Present. CALCULATIONS OF GESTATIONAL AGE From today or the earliest obtained ultrasound: 9 weeks 0 days. MATERNAL PELVIS Right ovary: Normal. Left ovary: Normal. Cul-de-sac: Minimal free fluid IMPRESSION: Single live intrauterine gestation as described. No abnormality is seen. The anatomy cannot be assessed at this gestational age. Reviewed, dictated and finalized at location A. IMPRESSION: Single live intrauterine gestation as described. No abnormality is seen. The fe ana anatomy cannot be assessed at this gestational age.
[2025-05-02 09:47] LABS: Add Urine Microscopic? NO; Appearance Urine Clear (Clear); Glucose Urine UA Negative (Negative); Leukocyte Esterase Ur Negative LEU/UL (Negative); Nitrate Urine Negative (Negative); Specific Grav Ur 1.020 (1.010-1.020)
[2025-05-02 09:48] LABS: Hematocrit 37.5 % (35.0-49.0); Hemoglobin 12.3 g/dL (12.0-15.0); Immature Granulocyte Percent A 0.9 % (0.0-0.0); Lymphocytes Absolute Auto 1.69 K/mm3 (1.10-4.50); Mean Corpuscular HGB Conc 32.8 g/dL (32-36); Mean Corpuscular Hemoglobin 28.6 pg (27.0-31.0); Mean Corpuscular Volume 87.2 fL (78.0-102.0); Nucleated Red Blood Cells Absolute Auto 0.00 K/mm3 (0.00-0.00); Nucleated Red Blood Cells Perc 0.0 % (0-0.0); Platelet Count Result 234 K/mm3 (150-420); Red Blood Count 4.30 M/mm3 (4.20-5.40); White Blood Count 8.8 K/mm3 (4.8-10.8)
--- OUTSIDE RECORDS SUMMARY | 2025-05-02 10:19 | XMS_ITS | Clinical Summary ---
Author Organization [facility] Address [address] [address] Phone Care Team Providers Care Cashier And Waiter/Waitress Name Role Phone Unavailable Primary Care Provider [...]
[2025-05-02 10:38] LABS: Alanine Aminotransferase 15 U/L (6-35); Albumin Level 4.3 g/dL (3.5-5.1); Alkaline Phosphatase 57 U/L (38-126); Anion Gap 12 mmol/L (4-12); Aspartate Amino Transferase 21 U/L (14-36); Bilirubin,Total 0.4 mg/dL (0.2-1.3); Blood Urea Nitrogen 8 mg/dL (7-17); Calcium 9.3 mg/dL (8.4-10.2); Carbon Dioxide 22 mmol/L (22-30); Chloride 104 mmol/L (98-107); Estimated Glomerular Filt Rate > 60; Glucose 117 mg/dL (65-110); Osmolality Calculated 285 mOsm/kg (285-295); Potassium 4.2 mmol/L (3.4-5.0); Sodium 138 mmol/L (137-145); Total Protein 6.8 g/dL (6.3-8.2)
== END 2025-05-02 09:35 | disposition home or self-care (01) ==
PROVIDERS: PCP Family Medicine; Visit Provider Family Medicine
DX: R30.9 Painful micturition, unspecified (principal); N84.0 Polyp of corpus uteri; R10.20 Pelvic and perineal pain unspecified side; Z3A.09 9 weeks gestation of pregnancy
CPT/HCPCS: 36415; 76801; 76817; 80053; 81003; 85025

== ENCOUNTER 2025-05-16 10:08 | Outpatient (CLI) | payer OTHER, SELFPAY ==
[2025-05-16 10:14] VITALS: BMI 31.1
[2025-05-16 10:15] VITALS: BP 111/63; PULSE 78; RESP 16; TEMP 36.1; O2SAT 99
[2025-05-16] MEDS: SODIUM CHLORIDE 0.9% IV 1,000 ML 999 ML IVPB (10:27)
[2025-05-16] MEDS: ONDANSETRON INJ 4 MG/2 ML VIAL IV PUSH (10:28)
[2025-05-16 11:39] VITALS: BP 118/70
--- NOTE | 2025-05-16 11:39 | PC.NURSE ---
Tolerated infusion and injection well. Report feeling better. SEE MAR/patient care notes
== END 2025-05-16 10:09 | disposition home or self-care (01) ==
PROVIDERS: PCP Family Medicine; Visit Provider Family Medicine
DX: E86.0 Dehydration (principal); R11.2 Nausea with vomiting, unspecified; R51.9 Headache, unspecified; J45.909 Unspecified asthma, uncomplicated; K21.9 Gastro-esophageal reflux disease without esophagitis
CPT/HCPCS: 96360; 96374; J2405; J7030

== ENCOUNTER 2025-05-27 11:50 | Outpatient (NON) | payer OTHER, SELFPAY ==
[2025-05-27 11:59] LABS: Add Urine Microscopic? YES; Appearance Urine Clear (Clear); Glucose Urine UA Negative (Negative); Leukocyte Esterase Ur Trace LEU/UL (Negative); Nitrate Urine Negative (Negative); Specific Grav Ur >= 1.030 (1.010-1.020)
== END 2025-05-27 11:51 | disposition home or self-care (01) ==
LOC: CHSLAB 11:51
PROVIDERS: PCP Family Medicine; Visit Provider Family Medicine
DX: R39.9 Unspecified symptoms and signs involving the genitourinary system (principal)
CPT/HCPCS: 81001

== ENCOUNTER 2025-06-05 12:13 | Outpatient (NON) | payer OTHER, SELFPAY ==
--- OUTSIDE RECORDS SUMMARY | 2025-06-05 13:29 | XMS_ITS | Encounter Summary ---
Author Organization [facility] Address [address] [place] [address] Care Team Providers Care Take Away Worker Name Role Phone Kaye Rob MD Primary Care Provider [phone] Encounter Details Date Type Department Care Team (Late st Contact Info) Description 12/09/2018 Abstract SFL CONVERSION [address] [place] [address] , Generic Conversion, Social History Tobacco Use Types Packs/Day Years Used Date Smoking Tobacco: Never Smokeless Tobacco: Never Alcohol Use Standard Drinks/Week Comments No 0 (1 standard drink = 0.6 oz pur e alcohol) Comments No Sex and Gender Information Value Date Recorded Sex Assigned at Not on file Legal Sex Female 9:55 PM FONDANT COOKER Gender Identity Not on file Sexual Orientation Not on file documented as of this encounter Plan of Treatment Not on file documented as of this encounter Visit Diagnoses Not on filedocumented in this encounter Care Teams Take Away Worker Relationship Specialty Start Date End Date Kaye Rob MD [address] [place] [phone] PCP - General INTERNAL MEDICINE 10/22/17 documented as of this encounter
--- OUTSIDE RECORDS SUMMARY | 2025-06-05 13:29 | XMS_ITS | Clinical Summary ---
Author Organization [facility] Address [address] [place] [address] Care Team Providers Care Institutional Research Director Name Role Phone Kaye Rob MD Primary Care Provider [phone] Allergies Active Allergy Reactions Criticality Noted Date Comments Sulfa Antibiotics Rash Low 10/22/2017 Medications ondansetron (ZOFRAN-ODT) 4 MG disintegrating tablet Take 1 tablet (4 mg total) by mouth every 8 (eight) hours as needed for Nausea. 20 tablet 3 Active Active Problems Problem Noted Date Diagnosed Date 11/08/2017 Threatened labor 10/22/2017 Encounters Date Type Department Care Team Description 04/23/2025 Orders Only [facility] [address] [place] [address] Donovan Hayward MD 04/09/2025 5:57 PM CDT - 04/09/2025 11:59 PM CDT Hospital Encounter [facility] [address] [place] [address] Donovan Hayward MD Discharge Disposition: Home or Self Care (Routine Discharge) 04/09/2025 Orders Only [facility] [address] [place] [address] Donovan Hayward MD 03/28/2025 Orders Only [facility] [address] [place] [address] Donovan Hayward MD from Last 3 Months Family [...] on file Legal Sex Female 9:55 PM COTTON HEADER Gender Identity Not on file Sexual Orientation [...] (1 - 3-dose series) 2013 PHQ-2 (Physician [place]) 07/04/2024 COVID-19 Vaccine ( season) 2025 05/26/2021, 07/21/2020, 07/01/2020 Influenza Adult (#1) 2025 05/31/2017 Cervical Cancer Screening Pap Smear (Age 21 to 29) Every 3 Years 06/07/2027 06/07/2024, 04/26/2023, 04/28/2020 Cervical Cancer Screening 06/07/2027 DTaP, Tdap and Td Vaccines (9 - Td or Tdap) 08/30/2027 08/30/2017, 01/07/2016, 02/20/2013, Additional history exists Hepatitis B Vaccines Completed 01/26/2000, 2000, 2000 Hepatitis C Completed 06/07/2024 Chlamydia Screening Females ages 16-24 Discontinued 04/09/2025, 06/07/2024, 04/26/2023, Additional history exists Hepatitis A Vaccines Aged Out No long er eligible based on patient's age to complete this topic Meningococcal B Vaccine Aged Out No l [...] Associated Diagnosis Comments CHLAMYDIA GC RNA Routine 04/09/2025 2:24 PM CDT with inconclusive viability, not applicable or unspecified (HHS/HCC) HC CULTURE URINE W/COLONY CT Routine 04/09/2025 12:00 PM CDT with inconclusive viability, not applicable or unspecified (HHS/HCC) VAGINITIS SCREEN (VDS) Routine 04/09/2025 12:00 PM CDT with inconclusive viability, not applicable or unspecified (HHS/HCC) HEPATITIS C ANTIBODY Routine 06/07/2024 12:00 PM COTTON HEADER Encounter for screening for infections with a predominantly sexual mode of transmission CYTOPATH CERV/VAG THIN LAYER Routine 06/07/2024 12:00 AM COTTON HEADER from Last 3 Months or Most Recently Relevant to Health Maintenance Results * CHLAMYDIA GC RNA (04/09/2025 2:24 PM CDT) SPECIMEN CERVICAL 04/09/2025 5:58 PM CDT [facility] CHLAMYDIA RNA TMA NEGATIVE NEGATIVE 025 7:38 PM CDT [facility] Comment:PERFORMED BY NUCLEIC ACID AMPLIFICATION N.GONORRHOEAE RNA TMA NEGATIVE NEGATIVE 04/10/2025 7:38 PM CDT [facility] Comment:PERFORMED BY NUCLEIC ACID AMPLIFICATION CERVICAL 04/09/2025 2:24 PM CDT us Donovan Hayward MD MICROBIOLOGY - GENERAL ORDERABL ES Final Result Performing Organization Address [facility] Co de Phone Number [facility] [address] [place] [address], [place] [phone] [facility] [address] [place] [address], [phone] * (ABNORMAL) VAGINITIS SCREEN (VDS) (04/09/2025 12:00 PM CDT) SPECIMEN SOURCE VAGINAL SPECIMEN 04/09/2025 7:15 PM CDT [facility] TRICHOMONAS NEGATIVE NEGATIVE 04/09/2025 7:15 PM CDT [facility] Comment:NOT DETECTED BY DNA PROBE GARDNERELLA VAGINALIS POSITIVE(A) NEGATIVE 04/09/2025 7:15 PM CDT [facility] Comment:DETECTED BY DNA PROB E CJ SPECIES NEGATIVE NEGATIVE 7:15 PM CDT [facility] Comment:NOT DETECTED BY DNA PROBE 04/09/2025 12:0 0 PM CDT us Donovan Hayward MD MICROBIOLOGY - GENERAL ORDERABL ES Final Result Performing Organization Address [facility] [address]/[facility] Co de Phone Number [facility] [address] [place] [address], [place] [phone] * URINE BACTERIA CULTURE (04/09/2025 12:00 PM CDT) SPEC DESCRIPTION URINE, UNSPECIFIED 04/10/2025 12:58 PM CDT [facility] SPECIAL REQUESTS NO SPECIAL REQUEST 04/10/2025 12:58 PM CDT [facility] CULTURE RESULT >25,000 TO 50,000 CFU/mL LACTOBACILLUS SPECIES 04/12/2025 11:00 AM CDT [facility] URINE SPECIMEN / Unknown 04/09/2025 12:00 PM CDT 04/10/2025 1:55 PM CDT Donovan Hayward MD MICROBIOLOGY - GENERAL ORDERABL ES Final Result Performing Organization Address [facility] [address]/[facility] Co de Phone Number [facility] [address] [place] [address], [phone] * HEPATITIS C ANTIBODY (06/07/2024 12:00 PM COTTON HEADER) HEPATITIS C AB NON-REACTI VE NON-REACT HUNG 06/07/2024 6:51 PM COTTON HEADER [facility] Comment: ANTIBODIES TO HCV NOT DETECTED. DOES NOT EXCLUDE THE POSSIBILITY OF EXPOSURE TO HCV. 06/07/2024 12:0 0 PM COTTON HEADER Donovan Hayward MD LABORATORY Final Result Performing Organization Address [facility] [address] [facility] de Phone Number [facility] [address] [place] [address], [phone] * Cytopath Cerv/Vag Thin Layer (06/07/2024 12:00 AM COTTON HEADER) THIN PREP PAP [address] [address] Department of Pathology Pathology Report CERVICAL/VAGINAL PAP SMEAR REPORT Name: CECE ALFONSO Age: 1 2000 (Age: 23) Location: [facility] Sex: F Collected Date: 06/07/2024 Hospital #: [id number] Date Received: 06/08/2024 Date Reported: 06/13/2024 Provider: DONOVAN HAYWARD MD INTERPRETATION ABNORMAL RESULT CERVICAL/ENDOCERVI RYAN: SATISFACTORY FOR EVALUATION. ENDOCERVICAL/TRANS FORMATION ZONE COMPONENT PRESENT. LOW GRADE SQUAMOUS INTRAEPITHELIAL LESION. Initial cytologic screening was performed at [facility] [address] [place] [address]. This case was interpreted and signed out at [facility], [address] [facility], [place] [address]. Electronically Signed Out DONOVAN Ayala, [place] (ASCP) CLINICAL HISTORY R87.619 ABNORMAL PAP SMEAR [...] is not effective in detecting cervical adenocarcinoma. [facility] 06/07/2024 06/08/2024 1:0 4 PM COTTON HEADER Comment:CERVICAL/ENDOCERVICA L us Donovan Hayward MD PATHOLOGY/CYTOLOGY ORDERABLES F inal Result [facility] [address] [place] [address], from Last 3 Months or Most Recently Relevant to Health Maintenance Insurance GENERIC - COMMERCIAL [employer] Care Teams Institutional Research Director Relationship Specialty Start Date End Date Kaye Rob MD [address] [place] [phone] PCP - General INTERNAL MEDICINE 10/22/17
== END 2025-06-05 12:14 | disposition home or self-care (01) ==
LOC: CHSLAB 12:14
PROVIDERS: PCP Family Medicine; Visit Provider Family Medicine
DX: N39.0 Urinary tract infection, site not specified (principal)
CPT/HCPCS: 87086

== ENCOUNTER 2025-06-05 12:40 | Outpatient (CLI) | payer OTHER, SELFPAY ==
--- NOTE | ~2025-06-05 | US_ITS ---
US retroperitoneal comp 06/05/2025 13:09 Procedure: Realtime transabdominal ultrasound of the kidneys and bladder. Indication: Flank pain Comparison: No prior studies for comparison. Findings: Renal echotexture is normal bilaterally without hydronephrosis, contour deforming mass or renal calculus. The right kidney measures 10.4 cm and left kidney measures 12 cm. Bladder within normal limits. Impression: 1: Unremarkable renal ultrasound. No stones, masses or hydronephrosis. Reviewed, dictated and finalized at location I. UTER CLERK Impression: 1: Unremarkable renal ultrasound. No stones, masses or hydronephrosis.
--- OUTSIDE RECORDS SUMMARY | 2025-06-05 13:39 | XMS_ITS | Continuity of Care Document ---
Author Organization [facility], [facility] ([place]) Address [address] [place] [address] Assessment Encounter Date Assessment Date Assessment LastModified by Organization Details LastModified Time 05/09/2025 05/09/2025 1. Symptomatic hypoglycemia in early , likely reactive/postpra ndial; insulinoma unlikely based on timing with meals and prior evaluation - Reviewed limitations of CGM (Juice) in and for detecting hypoglycemia; patient may use fingersticks or CGM if helpful and not anxiety-provokin g - Dietary counseling: prioritize protein-first intake; reduce and spread out carbohydrate loads; consider splitting fruit portions (e.g., half now, half in ~2 hours) and pairing carbohydrates with protein (e.g., cottage cheese, Greenlandic yogurt, proteins) to blunt glycemic spikes. Hypoglycemia has generally occurred postprandial after lunch when she has fruit and is active. It does not occur fasting - Hypoglycemia management education: Rule of 15 (15 g fast-acting carbs, wait 15 minutes, repeat if still low); caution about rebound lows - Activity moderation during periods prone to lows (e.g., afternoons) as tolerated - Discussed medication options: acarbose (delays carbohydrate absorption) not studied in -avoid if possible ( category B); metformin is used in gestational diabetes/could be trialled to see impact on insulin resistance but could theoretically exacerbate hypoglycemia. We could try these based on severity. - Consider inpatient monitoring only if episodes become severe/persisten t despite outpatient measures - Reviewed hypoglycemia management 2. at ~10 weeks with history of gestational diabetes - Communicate ongoing hypoglycemia to OB (she reports she already has done so) - Expectation discussed that insulin resistance levels often change later in , which may lead to changes Planned diagnostics - Fasting (8 AM) labs: glucose, insulin, C-peptide - Thyroid testing (TSH with reflex as per local protocol) Follow-up and coordination - Complete labs at preferred hospital; clinic will call with results; if no call within a week, patient to contact clinic for results - Align follow-up with upcoming OB visits; she states she will see MFM starting July; return sooner if hypoglycemia worsens or severe symptoms recur Reviewed case with Dr. Salazar prior to and following visit and did literature review with UpToDate and Open Evidence at time of visit regarding her situation. Recent diagnostic data and health events reviewed with the patient at the time of their visit as outlined in the history of present illness and interval history above. 42 minutes were spent by me personally on this encounter on the date of this patient's visit. This included time spent with patient, but also non face-to face time in chart review, documentation, and coordinating this patient's care. This excludes time spent on separately reportable events the date of their visit. [email or web address] Not available 05/09/2025 13:30:43 Plan of Treatment Reminders Order Date Submit Date Provider Last Modified By Organization Details Last Modified Time Details Appointments None recorded . Lab TSH, ultra-se nsitive, serum 05/09/20 25 [facility], [address] [place] [address], [id number], 5 13:30:55 T4, free, serum 05/09/20 25 [facility], [address] [place] [address], [id number], 5 13:30:55 insulin, fasting, serum 05/09/20 25 [facility], [facility] [address] [place] [address], [id number], 5 13:30:55 glucose, QN, serum or plasma 025 05/09/20 25 [facility], [facility] [address] [place] [address], [id number], 5 13:30:56 C-peptid e, serum 025 05/09/20 [facility], [address] [place] [address], [id number], 13:30:56 Referral None recorded . Procedures None recorded . Surgeries None recorded . Imaging None recorded . Medication Orders None recorded . Patient TargetsNo targets recorded. Patient InstructionsNo instructions recorded. Reason for Referral None Reported. Results Created Date Observation Date Name Description Value Unit Range Abnormal Flag Note LastModifiedBy Organization Detail LastModifiedTime 05/09/2005/09/2025 HbA1c (hemo globi n A1c), blood fingerstick A1C endo Not Available [facility] [address] [place] [address], [id number], 05/09/2025 12:29:28 05/09/2005/09/2025 HbA1c (hemo globi n A1c), blood hemoglobin A1C, finger 4.8 %_A1C 4.3 - 5.6 Not Available [facility] [address] [place] [address], [id number], 05/09/2025 12:29:28 05/09/2005/09/2025 HbA1c (hemo globi n A1c), blood fingerstick estimated ave [address] Not Available [facility] [address] [place] [address], [id number], 05/09/2025 12:29:28 Result Notes None recorded. Problems Name Problem SNOMED Code Status Onset Date Resolution Date Notes Provider Name and Address Organization Details Recorded Time Hypoglycemia 138533241 Active 2024 [facility] 5 16:19:10 Problem Notes None recorded. Medical Equipment None Reported. Allergies Allergen ID Allergen Name Allergen Category Reaction Reaction Severity Criticality Documentation Date Start Date Code Code System Note Provider Name and Address Organization Details Recorded Time [id number] Substance with sulfonami de structure and antibacte rial mechanism of action (substanc e) medicatio n Not available Not available Not available 08/03/20232016 47563 [id number] SNOMED Not Available [facility] 04:38:38 Medications Name Sig Start Date Stop Date Status Note LastModified by Organization Details LastModified Time ketoconazol e 2 % shampoo APPLY TOPICALLY TWICE WEEKLY active Not Available Not Available No t Available fluconazole 150 mg tablet 150 MG ORALLY ONCE TAKE FIRST DOSE TODAY AND REPEAT IN 3 DAYS 05/09 completed Not Available Not Available Not Available prazosin 1 mg capsule 1 MG ORALLY EVERY DAY AT BEDTIME 05/09 completed Not Available Not Available Not Available metronidazo le 500 mg tablet TAKE 4 TABLETS FOR A SINGLE DOSE WITH FOOD 05/08 completed Not Available Not Available Not Available tramadol 50 mg tablet TAKE 1 TABLET BY MOUTH EVERY 6 HOURS NEEDED FOR PAIN 05/09 completed Not Available Not Available Not Available sertraline 25 mg tablet TAKE 1 TABLET BY MOUTH EVERY DAY 05/09 completed Not Available Not Available Not Available mupirocin 2 % topical ointment APPLY TOPICALLY TWICE A DAY FOR 2 WEEKS 12/10 completed Not Available Not Available Not Available ondansetron 4 mg disintegrat ing tablet TAKE 1 TABLET BY MOUTH EVERY 8 HOURS 05/09 completed Not Available Not Available Not Available prazosin 2 mg capsule TAKE 1 CAPSULE BY MOUTH AT BEDTIME 05/09 completed Not Available Not Available Not Available progesteron e micronized 100 mg capsule INSERT ONE CAPSULE NIGHTLY, VAGINALLY THROUGH 12TH WEEK GESTATION AL AGE active Not Available Not Available No t Available nitrofurant oin monohydrate /macrocryst als 100 mg capsule TAKE 1 CAPSULE BY MOUTH TWICE A DAY WITH MEAL/FOOD 12/10 completed Not Available Not Available Not Available active Not Available Not Avai lable Not Available multivitami n 05/09 completed Not Available Not Available Not Available ProAir HFA 90 mcg/actuati on aerosol inhaler Inhale 2 puffs every 4 hours by inhalatio n route. active Not Available Not Available No t Available Probiotic with Prebiotic active Not Available Not Available No t Available EluRyng 0.12 mg-0.015 mg/24 hr vaginal ring INSERT 1 RING DIRECTED. 05/09 completed Not Available Not Available Not Available Nurtec ODT 75 mg disintegrat ing tablet TAKE 1 TABLET BY MOUTH EVERY 48 HOURS NEEDED FOR MIGRAINE HEADACHE A SINGLE DOSE 05/09 completed Not Available Not Available Not Available Vitals Date Recorded Body height Body mass index (BMI) Body weight Heart rate Systolic And Diastolic Provider Name and Address Organization Details Last Updated DateTime 05/09/2025 162.56 cm 32.3 kg/m2 80883.37 g 83 /min 124/64 mm[Hg] Phoebe Windell [facility] 05/09/2025 12:29:13 Social History None recorded. Functional Status None recorded. Mental Status None recorded. Family History Nothing Reported. Medical History No medical history recorded. Gynecological HistoryNo gynecological history recorded. Obstetrics History GPAL:G 0 P 0 0 0 0 Immunizations Vaccine Type Date Status Note Provider Nam e and Address Organization Details Recorded Time [facility] 9 [facility] 12:[facility] 9 [facility] 12:40:21 [facility]ib[facility] 0 [facility] 12:40:21 IPV 9 [facility] 12:40:21 IPV 9 [facility] 12:40:21 IPV 0 completed [facility] 12:40:21 IPV 4 [facility] 12:40:21 MMR 0 [facility] 12:40:21 MMR 4 [facility] 12:40:21 COVID-19, mRNA, LNP-S, PF, 30 mcg/0.3 mL dose 1 completed [facility] 12:40:21 COVID-19, mRNA, LNP-S, PF, 30 mcg/0.3 mL dose 1 completed Phoebe Windell null, [facility] 09/28/2024 12:40:21 COVID-19, mRNA, LNP-S, PF, 30 mcg/0.3 mL dose 0 completed Phoebe Windell null, [facility] 09/28/2024 12:40:21 Tdap 8 completed Phoebe Windell null, [facility] 09/28/2024 12:40:21 Tdap 6 completed Phoebe Windell null, [facility] 09/28/2024 12:40:21 Tdap 3 completed Phoebe Windell null, [facility] 09/28/2024 12:40:21 Influenza, split virus, trivalent, preservative 7 completed Phoebe Windell null, [facility] 09/28/2024 12:40:21 Influenza, split virus, trivalent, PF 4 completed Phoebe Windell null, [facility] 09/28/2024 12:40:21 Hep B, adult 4 completed Phoebe Windell null, [facility] 09/28/2024 12:40:21 Hep B, adult 4 completed Phoebe Windell null, [facility] 09/28/2024 12:40:21 DTaP 9 completed Phoebe Windell null, [facility] 09/28/2024 12:40:21 DTaP 9 completed Phoebe Windell null, [facility] 09/28/2024 12:40:21 DTaP 0 completed Phoebe Windell null, [facility] 09/28/2024 12:40:21 DTaP 9 completed Phoebe Windell [facility] 09/28/2024 12:40:21 DTaP 4 completed Dorothy Villafana [facility] 09/28/2024 12:40:21 Past Encounters Encounter ID Performer Location Encounter Start Date Encounter Closed Date Diagnosis/Indication Diagnosis SNOMED-CT Code Diagnosis ICD10 Code Diagnosis IMO Codes Diagnosis Note [id number] [facility] [address] [place] [address] 05/09/2025 12:07:54 05/09/2025 12:58:18 Hypoglycemia 271129230 E16.2 72739 Health Concerns Section Related Observation LastModified by Organization Detai ls LastModified Time None Recorded Concern Status LastModified by Organization Details LastModified Time None Recorded Payers Encounter Date Sequence Insurance Name Policy Number Policy Berrios Covered Member ID Berrios Member ID Guarantor Name 05/09/2025 1 [id number] Cece Alfonso [id number] Cece Alfonso 05/09/2025 2 [place] [employer] [facility] [employer] Cece Alfonso [id number] Cece Alfonso Notes Date Note Type Note Provider Name and Address Organization Details Recorded Time 05/09/2025 text/html Ms. Alfonso is a pleasant 24 year old female here for follow up on her hypoglycemia. She had GDM with her son who is 7. She did not need medication, but after delivery she started having hypoglycemia. Hemoglobin A1c as 4.7% in June 2024.Insulin level in September 2023 was 118 however the corresponding glucose from 09/24 if reporting is correct was 109.TSH levels have been drawn annually the last few years and were normal. August 2024 TSH was 1.August c-peptide 2.41, insulin of 7.5, TSH 1.45. I do not see a corresponding blood glucose levelAt time of consultation early in 2024 she noted almost no hypoglycemia x the last 6 months but had followed ketogenic BMI is >30 prepregnancy. Her weight has been progressively increasing the last couple years. However she also goes to the gym and has a good amount of muscle mass, not a lot of central obesity. She contacted yesterday as she is now approximately 10 weeks gestation and dealing again with recurrent symptomatic hypoglycemia. She reports prior gestational diabetes in her last (approximately 7 years ago); did not have it in her first . Since then she has experienced intermittent low blood sugars, which previously improved on a ketogenic-style diet. Over the past several days, she has had worsening episodes of hypoglycemia with fingerstick readings below 54 mg/dL requirement treatment with glucose/juice. Symptoms during lows include shakiness, nausea, headaches, visual blurring, difficulty forming sentences, and pallor; one episode required her boss to drive her home due to severity. She had been using a Lumicsyle Juice CGM but removed it after being informed it is not FDA-approved in ; she notes the CGM sometimes failed to reflect symptomatic lows. Morning sickness has subsided. She is attempting small, frequent meals (e.g., cottage cheese with fruit), but episodes persist. Recent outside urine tests showed moderate ketones. She denies overnight recurrent hypoglycemia. Prior workup with PCP reportedly ruled out overt sinister causes; insulinoma considered unlikely given timing with meals. Cortisol previously normal; thyroid previously normal per history. In-clinic A1c today is 4.8%. Aj Kent PA-C [address] [facility], [place], [address], [facility] 05/09/2025 13:30:55 OBGyn Episode No OBEpisode recorded.
== END 2025-06-05 12:41 | disposition home or self-care (01) ==
LOC: CHSIMG 12:40
PROVIDERS: PCP Family Medicine; Visit Provider Family Medicine
DX: N20.0 Calculus of kidney (principal)
CPT/HCPCS: 76770